=== PATIENT | male | born 1965 | race Caucasian/White ===

== ENCOUNTER 2018-04-18 14:11 | Emergency (ER) | payer MEDICARE, MEDICAID ==
[~2018-04-18] VITALS: Ht 1621 cm; Wt 61.3 kg
[~2018-04-18 14:11] MED LIST: CLOZ100T PO; DOCU240C26 PO; MULT-1085 PO; RISP4TAB2 PO; SERT100T PO; [UNRECOGNIZED DRUG - CODE] PO
[2018-04-18 15:12] LABS: BASOPHILS % (AUTO) 0.3 % (0-1); EOSINOPHILS % (AUTO) 0 % (0-6); HEMATOCRIT 41.1 % (42.0-52.0); LYMPHOCYTES % (AUTO) 18.4 % (21-51); MEAN CORPUSCULAR HEMOGLOBIN 32.7 PG (27.0-31.0); MEAN CORPUSCULAR HGB CONC 34.1 % (33.0-36.5); MEAN CORPUSCULAR VOLUME 96.1 FL (78-98); MEAN PLATELET VOLUME 7.1 FL (7.4-10.4); MONOCYTES # (AUTO) 0.8 X10'3 (0-0.9); MONOCYTES % (AUTO) 7.4 % (2-12); NEUTROPHILS # (AUTO) 7.9 X10'3 (1.8-7.7); NEUTROPHILS % (AUTO) 73.9 % (42-75); PLATELET COUNT 370 X10'3 (140-440); RED BLOOD COUNT 4.28 X10'6 (4.70-6.10); RED CELL DISTRIBUTION WIDTH 14.7 % (11.5-14.5); WHITE BLOOD COUNT 10.7 X10'3 (4.5-11.0)
[2018-04-18] MEDS ORDERED: SENN8.6T61 PO (15:30)
[2018-04-18] MEDS ORDERED: ACET-2119 PO (15:30)
[2018-04-18 15:34] LABS: ALANINE AMINOTRANSFERASE 63 U/L (12-78); ALBUMIN 4.3 G/DL (3.4-5.0); ALBUMIN/GLOBULIN RATIO 1.4 (1.1-1.5); ALKALINE PHOSPHATASE 95 IU/L (46-116); ANION GAP 7 (8-16); ASPARTATE AMINO TRANSFERASE 28 U/L (10-37); BILIRUBIN,TOTAL 0.3 MG/DL (0.1-1.0); BLOOD UREA NITROGEN 24 MG/DL (7-18); BUN/CREATININE RATIO 23.5 (5.4-32.0); CALCIUM 9.6 MG/DL (8.5-10.1); CHLORIDE 105 MMOL/L (99-107); CREATININE 1.02 MG/DL (0.60-1.10); GLUCOSE 98 MG/DL (70-104); POTASSIUM 4.1 MMOL/L (3.5-5.1); SODIUM 142 MMOL/L (135-145); TOTAL CARBON DIOXIDE 30.1 MMOL/L (24-32); TOTAL PROTEIN 7.4 G/DL (6.4-8.2); eGFR 77 ML/MIN
[2018-04-18 15:41] LABS: ETHANOL < 0.010 GM/DL (0.0-0.010)
[2018-04-18] MEDS ORDERED: OLANZapine 2.5MG tablet PO ONE (15:45)
[2018-04-18] MEDS ORDERED: [UNRECOGNIZED DRUG - OTHER] PO PRN (15:50)
[2018-04-18] MEDS ORDERED: acetaminophen 325mg tablet PO PRN (15:50)
[2018-04-18] MEDS ORDERED: PSYLLIUM HUSK PO PRN (15:50)
[2018-04-18] MEDS ORDERED: sennosides 8.6mg tablet PO PRN (15:50)
[2018-04-18] MEDS ORDERED: psyllium seed 3.4 gm packet PO PRN ×2 (15:55)
[2018-04-18] MEDS ORDERED: DOCUSATE CALCIUM 250 MG PO SCH (20:00)
[2018-04-18] MEDS: docusate sod 250mg capsule PO SCH (20:24)
[2018-04-18] MEDS ORDERED: CLOZAPINE 100 MG PO SCH (21:00)
[2018-04-18] MEDS ORDERED: risperiDONE 2mg tablet PO SCH (21:00)
[2018-04-18] MEDS ORDERED: CLOZAPINE 500 MG PO SCH (21:00)
[2018-04-18] MEDS ORDERED: sertraline 50mg tablet PO SCH (21:00)
[2018-04-18] MEDS ORDERED: SERTRALINE HCL PO SCH (21:00)
[2018-04-18] MEDS ORDERED: RISPERIDONE PO SCH (21:00)
[2018-04-18 22:03] LABS: URINE AMPHETAMINE SCREEN NEGATIVE (Neg); URINE BARBITUATE SCREEN NEGATIVE (Neg); URINE BENZODIAZEPINES SCREEN NEGATIVE (Neg); URINE CANNABINOID SCREEN NEGATIVE (Neg); URINE COCAINE SCREEN NEGATIVE (Neg); URINE METHADONE SCREEN NEGATIVE (Neg); URINE OPIATE SCREEN NEGATIVE (Neg); URINE PHENCYCLIDINE SCREEN NEGATIVE (Neg)
[2018-04-19 05:58] VITALS: BP 138/96
[2018-04-19] MEDS ORDERED: LORazepam 2 mg/ml vial IM ONE (07:15)
[2018-04-19] MEDS ORDERED: multivitamins, therapeutics tablet PO SCH (08:00)
[2018-04-19] MEDS: docusate sod 250mg capsule PO SCH (08:00)
[2018-04-19] MEDS ORDERED: non-formulary drug (Multivitamin (Multi Vitamin Daily) 1 EACH) PO SCH (08:00)
[2018-04-19] MEDS ORDERED: LORazepam 1 MG tablet PO ONE (13:05)
== END 2018-04-19 14:20 ==
LOC: ER 14:12
DX: F20.9 Schizophrenia, unspecified (principal); Z79.899 Other long term (current) drug therapy
CPT/HCPCS: 36415; 80053; 80305; 80320; 84443; 85025; 96372; 99285; J2060

== ENCOUNTER 2018-09-21 19:19 | Inpatient (IN) | payer MEDICARE, MEDICAID ==
[~2018-09-21] VITALS: Ht 167.6 cm; Wt 70.0 kg
[~2018-09-21 19:19] MED LIST changes: +ACET-2119 PO; +BENZ1TAB7 PO; +CLOZ200T PO; +CLOZ50TA PO; +HYDR50CA PO; +OLAN-1 PO; +SENN8.6T61 PO; +TRAZ-218 PO
[2018-09-21] MEDS ORDERED: LORazepam 2 mg/ml vial IM ONE ×2 (19:20→23:05)
[2018-09-21] MEDS ORDERED: diphenhydrAMINE 50 mg/ml inj IM ONE (19:20)
[2018-09-21] MEDS ORDERED: haloperidol lactate 5mg/ml inj IM ONE (19:20)
[2018-09-21] MEDS ORDERED: LIDOcaine 1% w/epiNEPHrine 1:200,000 30ml vial IJ ONE (19:35)
[2018-09-21] MEDS ORDERED: LIDOcaine 1.5% w/epinephrine 1:200,000 5ml ampul IJ ONE (19:35)
[2018-09-21] MEDS ORDERED: TETanus/Pertussis (Acell)/Diphther VAC/PF (Tdap-Adult) 0.5ml syringe IM ONE (19:35)
--- NOTE | 2018-09-21 19:43 | NUR ---
unable to get VS at this time. pt is unable to stay still
[2018-09-21 20:00] LABS: BASOPHILS # (AUTO) 0.1 X10'3 (0-0.2); BASOPHILS % (AUTO) 0.3 % (0-1); EOSINOPHILS # (AUTO) 0.3 X10'3 (0-0.9); EOSINOPHILS % (AUTO) 1.4 % (0-6); HEMATOCRIT 39.7 % (42.0-52.0); HEMOGLOBIN 13.4 g/dl (14.0-17.9); LYMPHOCYTES # (AUTO) 0.9 X10'3 (1.1-4.8); LYMPHOCYTES % (AUTO) 4.6 % (21-51); MEAN CORPUSCULAR HEMOGLOBIN 30.8 PG (27.0-31.0); MEAN CORPUSCULAR HGB CONC 33.7 % (33.0-36.5); MEAN CORPUSCULAR VOLUME 91.4 FL (78-98); MEAN PLATELET VOLUME 6.6 FL (7.4-10.4); MONOCYTES # (AUTO) 1.4 X10'3 (0-0.9); MONOCYTES % (AUTO) 6.9 % (2-12); NEUTROPHILS # (AUTO) 17.8 X10'3 (1.8-7.7); NEUTROPHILS % (AUTO) 86.8 % (42-75); PLATELET COUNT 396 X10'3 (140-440); RED BLOOD COUNT 4.34 X10'6 (4.70-6.10); RED CELL DISTRIBUTION WIDTH 13.6 % (11.5-14.5); WHITE BLOOD COUNT 20.5 X10'3 (4.5-11.0)
[2018-09-21 20:33] LABS: URINE AMPHETAMINE SCREEN POSITIVE (Neg); URINE BARBITUATE SCREEN NEGATIVE (Neg); URINE BENZODIAZEPINES SCREEN NEGATIVE (Neg); URINE CANNABINOID SCREEN NEGATIVE (Neg); URINE COCAINE SCREEN NEGATIVE (Neg); URINE METHADONE SCREEN NEGATIVE (Neg); URINE OPIATE SCREEN NEGATIVE (Neg); URINE PHENCYCLIDINE SCREEN NEGATIVE (Neg)
[2018-09-21 20:33] LABS: ALANINE AMINOTRANSFERASE 68 U/L (12-78); ALBUMIN 3.9 G/DL (3.4-5.0); ALBUMIN/GLOBULIN RATIO 1.3 (1.1-1.5); ALKALINE PHOSPHATASE 129 IU/L (46-116); ANION GAP 18 (8-16); ASPARTATE AMINO TRANSFERASE 101 U/L (10-37); BILIRUBIN,TOTAL 0.7 MG/DL (0.1-1.0); BLOOD UREA NITROGEN 34 MG/DL (7-18); BUN/CREATININE RATIO 20.4 (5.4-32.0); CALCIUM 9.1 MG/DL (8.5-10.1); CHLORIDE 102 MMOL/L (99-107); CREATININE 1.67 MG/DL (0.60-1.10); GLUCOSE 62 MG/DL (70-104); POTASSIUM 4.7 MMOL/L (3.5-5.1); SODIUM 141 MMOL/L (135-145); eGFR 44 ML/MIN
[2018-09-21 20:43] LABS: ACETAMINOPHEN < 2.0 UG/ML (10-30); ETHANOL < 0.010 GM/DL (0.0-0.010)
[2018-09-21 21:53] LABS: CLARITY,URINE CLOUDY (Clear); COLOR,URINE YELLOW (Yellow); GLUCOSE, URINE NEGATIVE (Neg); KETONES,URINE NEGATIVE (Neg); LEUKOCYTE ESTERASE ,URINE NEGATIVE (Neg); NITRITES, URINE NEGATIVE (Neg); OCCULT BLOOD,URINE MODERATE (Neg); PROTEIN,URINE 100 mg/dl (Neg); UROBILINOGEN,URINE 0.2 E.U/dL (0.2-1.0)
[2018-09-21 21:54] LABS: UA COLLECTION TYPE STRAIGHT CATH
[2018-09-21 22:03] LABS: WBC,URINE 30-50 /HPF (0-4)
[2018-09-21 22:05] LABS: BACTERIA,URINE FEW /HPF (Neg); MUCUS STRANDS MODERATE /LPF (Neg); RBC,URINE NONE SEEN /HPF (0-2); SQUAMOUS EPITHELIAL CELL,UR NONE SEEN /LPF (FEW); TRANSITIONAL EPI CELLS,URINE FEW /HPF
[2018-09-21 22:06] LABS: AMORPHOUS URATES 1+; SPERM MANY /HPF (NEGATIVE); WBC CLUMPS,URINE FEW /HPF (NEGATIVE)
[2018-09-21 23:34] LABS: TOTAL CELLS COUNTED 100
[2018-09-21 23:35] LABS: PLATELET ESTIMATE NORMAL
--- NOTE | 2018-09-22 00:14 | NUR ---
PT TAKEN TO OVERFLOW
--- NOTE | 2018-09-22 07:30 | NUR ---
PACKET FAXED TO [facility]
[2018-09-22] MEDS ORDERED: CefTRIAXone 2gm/D5W 50ml 50 ML IV ONE (08:15)
[2018-09-22] MEDS ORDERED: normal saline 1000ML IV soln IV ONE (08:15)
[2018-09-22 08:54] LABS: BASOPHILS % (AUTO) 0.3 % (0-1); EOSINOPHILS # (AUTO) 0.1 X10'3 (0-0.9); EOSINOPHILS % (AUTO) 0.7 % (0-6); HEMOGLOBIN 14.2 g/dl (14.0-17.9); LYMPHOCYTES # (AUTO) 1.6 X10'3 (1.1-4.8); MEAN CORPUSCULAR HEMOGLOBIN 30.8 PG (27.0-31.0); MEAN CORPUSCULAR VOLUME 93.3 FL (78-98); MEAN PLATELET VOLUME 6.9 FL (7.4-10.4); MONOCYTES # (AUTO) 0.9 X10'3 (0-0.9); MONOCYTES % (AUTO) 9.4 % (2-12); NEUTROPHILS # (AUTO) 6.8 X10'3 (1.8-7.7); NEUTROPHILS % (AUTO) 72.6 % (42-75); PLATELET COUNT 374 X10'3 (140-440); RED BLOOD COUNT 4.62 X10'6 (4.70-6.10); RED CELL DISTRIBUTION WIDTH 13.9 % (11.5-14.5); WHITE BLOOD COUNT 9.4 X10'3 (4.5-11.0)
[2018-09-22 09:10] LABS: ALANINE AMINOTRANSFERASE 85 U/L (12-78); ALBUMIN/GLOBULIN RATIO 1.2 (1.1-1.5); ALKALINE PHOSPHATASE 142 IU/L (46-116); ANION GAP 18 (8-16); ASPARTATE AMINO TRANSFERASE 156 U/L (10-37); BILIRUBIN,TOTAL 0.9 MG/DL (0.1-1.0); BLOOD UREA NITROGEN 38 MG/DL (7-18); BUN/CREATININE RATIO 35.2 (5.4-32.0); CALCIUM 8.9 MG/DL (8.5-10.1); CHLORIDE 103 MMOL/L (99-107); CREATININE 1.08 MG/DL (0.60-1.10); GLUCOSE 57 MG/DL (70-104); POTASSIUM 3.9 MMOL/L (3.5-5.1); SODIUM 142 MMOL/L (135-145); TOTAL CARBON DIOXIDE 21.3 MMOL/L (24-32); TOTAL PROTEIN 7.4 G/DL (6.4-8.2); eGFR 72 ML/MIN
[2018-09-22] MEDS ORDERED: acetaminophen 325mg tablet PO PRN ×2 (11:30)
[2018-09-22] MEDS ORDERED: mag hydrox/Alum hydrox/simeth 30ml oral suspension PO PRN (11:30)
[2018-09-22] MEDS ORDERED: ondansetron/PF 4mg/2ml inj IV PRN (11:30)
[2018-09-22] MEDS ORDERED: magnesium hydroxide 30ml (MOM) UD suspension PO PRN (11:30)
[2018-09-22] MEDS ORDERED: morphine 2 MG/ML inj. syringe IV PRN (11:30)
[2018-09-22] MEDS ORDERED: potassium Cl 20 mEq SR tablet PO PRN ×2 (11:30)
[2018-09-22] MEDS ORDERED: potassium Cl 40MEQ/NS 500ml 500 ML IV PRN ×2 (11:30)
[2018-09-22] MEDS ORDERED: dextrose 50%-water 50ml dispensing syringe IV PRN (11:30)
[2018-09-22] MEDS ORDERED: HYDROcodone/acetaminophen 5mg/325mg tablet PO PRN (11:30)
[2018-09-22] MEDS: normal saline 1000ml 1,000 ML IV SCH ×3 (12:02→23:39)
--- NOTE | 2018-09-22 12:30 | NUR ---
Patient in room ORTHO 4009. I have received report from Savanna HAMILTON RN and had the opportunity to ask questions and assume patient care.
--- NOTE | 2018-09-22 12:58 | NUR ---
PT UNABLE TO ANSWER QUESTIONS ABOUT MED ADMINISTRATION.
[2018-09-22 13:40] VITALS: BP 113/43
[2018-09-22 18:00] VITALS: BP 97/42
--- NOTE | 2018-09-22 18:10 | NUR ---
Patient in room ORTHO 4009. I have received report from JACKIE Muro and had the opportunity to ask questions and assume patient care.
--- NOTE | 2018-09-22 18:24 | NUR ---
Problems reprioritized. Patient report given, questions answered & plan of care reviewed with Steff MEJIA.
[2018-09-22 20:00] VITALS: BP 100/50
[2018-09-22] MEDS: heparin, porcine 5000 units/ml vial SQ SCH (20:00)
[2018-09-22] MEDS ORDERED: temazepam 15mg capsule PO PRN (21:00)
[2018-09-22 22:00] VITALS: BP 93/43
[2018-09-23 06:01] VITALS: BP 117/50
--- NOTE | 2018-09-23 06:38 | NUR ---
Problems reprioritized. Patient report given, questions answered & plan of care reviewed with JACKIE Bustillos.
[2018-09-23 08:00] VITALS: BP_SYST 107; BP_SYST 111; BP_SYST 119; BP_DIAS 55; BP_DIAS 60; BP_DIAS 61
[2018-09-23] MEDS: K and/or MAG REPLACEMENT MC SCH (08:00)
[2018-09-23] MEDS: heparin, porcine 5000 units/ml vial SQ SCH ×2 (08:00→20:00)
[2018-09-23] MEDS: CefTRIAXone 2gm/D5W 50ml 50 ML IV SCH (08:09)
[2018-09-23 10:00] VITALS: BP 107/60
[2018-09-23] MEDS: normal saline 1000ml 1,000 ML IV SCH ×2 (11:26→20:38)
[2018-09-23 18:00] VITALS: BP 109/57
--- NOTE | 2018-09-23 18:26 | NUR ---
Problems reprioritized. Patient report given, questions answered & plan of care reviewed with Fabian MEJIA.
[2018-09-23 20:00] VITALS: BP_SYST 109; BP_SYST 113; BP_SYST 116; BP_DIAS 57; BP_DIAS 65
[2018-09-23 22:00] VITALS: BP 109/65
[2018-09-24] MEDS: normal saline 1000ml 1,000 ML IV SCH ×2 (03:00→05:44)
[2018-09-24 06:00] VITALS: BP 133/70
[2018-09-24] MEDS: heparin, porcine 5000 units/ml vial SQ SCH ×2 (08:00→20:00)
[2018-09-24] MEDS: K and/or MAG REPLACEMENT MC SCH (08:00)
[2018-09-24] MEDS: CefTRIAXone 2gm/D5W 50ml 50 ML IV SCH (08:24)
[2018-09-24 09:32] LABS: BASOPHILS % (AUTO) 0.4 % (0-1); EOSINOPHILS % (AUTO) 0.7 % (0-6); HEMATOCRIT 35.1 % (42.0-52.0); HEMOGLOBIN 11.7 g/dl (14.0-17.9); LYMPHOCYTES # (AUTO) 1.1 X10'3 (1.1-4.8); MEAN CORPUSCULAR HEMOGLOBIN 30.8 PG (27.0-31.0); MEAN CORPUSCULAR HGB CONC 33.2 % (33.0-36.5); MEAN CORPUSCULAR VOLUME 92.8 FL (78-98); MEAN PLATELET VOLUME 7.1 FL (7.4-10.4); MONOCYTES # (AUTO) 0.4 X10'3 (0-0.9); NEUTROPHILS # (AUTO) 3.5 X10'3 (1.8-7.7); NEUTROPHILS % (AUTO) 68.9 % (42-75); PLATELET COUNT 280 X10'3 (140-440); RED BLOOD COUNT 3.78 X10'6 (4.70-6.10); RED CELL DISTRIBUTION WIDTH 13.8 % (11.5-14.5)
[2018-09-24 09:48] LABS: ALBUMIN 2.6 G/DL (3.4-5.0); ANION GAP 9 (8-16); BLOOD UREA NITROGEN 14 MG/DL (7-18); BUN/CREATININE RATIO 17.7 (5.4-32.0); CALCIUM 8.2 MG/DL (8.5-10.1); CHLORIDE 106 MMOL/L (99-107); CREATININE 0.79 MG/DL (0.60-1.10); GLUCOSE 109 MG/DL (70-104); POTASSIUM 3.8 MMOL/L (3.5-5.1); SODIUM 141 MMOL/L (135-145); TOTAL CARBON DIOXIDE 26.3 MMOL/L (24-32); eGFR > 90 ML/MIN
[2018-09-24 10:00] VITALS: BP 131/71
--- NOTE | 2018-09-24 12:21 | NUR ---
patient refused multiple times to do orthostatic vital signs.
[2018-09-24 12:28] LABS: LIPASE 288 U/L (73-393)
--- NOTE | 2018-09-24 15:43 | NUR ---
SS met w/pt in his hospital room, pt was not willing to participate in his psychosocial assessment at this time. Pt alert & oriented to Place only, indicated that he does not recall how he came to be @ the hospital. When informed that he was brought in by [facility] via a 5150 Hold pt refused any further conversation w/SS. 5150 Hold written by [facility] on 09/21/18 @ 7:56 PM, this hold has been nulled as pt was admitted for medical reasons. SS contacted [facility] to verify process for a re-eval if pt should continue to need one; per discussion w/[facility] RN, once pt is medically stabled for d/c, a new referral can be faxed to [facility] (Ph: [phone]; Fax: [phone]). Attending RN informed of this. SS will rt tomorrow to attempt to complete a psychosocial assessment and determine dispo re pt's MH needs.
--- NOTE | 2018-09-24 18:06 | NUR ---
RECEIVED REPORT FROM TRAN MEJIA AND ASSUMED PATIENT CARE
--- NOTE | 2018-09-24 18:16 | NUR ---
Problems reprioritized. Patient report given, questions answered & plan of care reviewed with Norma MEJIA.
[2018-09-24 18:18] VITALS: BP 131/79
[2018-09-24 20:00] VITALS: BP_SYST 131; BP_SYST 137; BP_DIAS 77; BP_DIAS 81; BP_DIAS 82
[2018-09-24 22:00] VITALS: BP 131/81
--- NOTE | 2018-09-25 06:18 | NUR ---
REPORT GIVEN TO EBONY MEJIA
--- NOTE | 2018-09-25 06:23 | NUR ---
Patient in room ORTHO 4009. I have received report from JACKIE SINGH and had the opportunity to ask questions and assume patient care.
[2018-09-25 06:47] LABS: BASOPHILS % (AUTO) 0.5 % (0-1); EOSINOPHILS % (AUTO) 0.5 % (0-6); HEMATOCRIT 37.6 % (42.0-52.0); HEMOGLOBIN 12.6 g/dl (14.0-17.9); LYMPHOCYTES # (AUTO) 1.5 X10'3 (1.1-4.8); LYMPHOCYTES % (AUTO) 27.2 % (21-51); MEAN CORPUSCULAR HEMOGLOBIN 30.7 PG (27.0-31.0); MEAN CORPUSCULAR HGB CONC 33.4 % (33.0-36.5); MEAN CORPUSCULAR VOLUME 91.9 FL (78-98); MEAN PLATELET VOLUME 7.4 FL (7.4-10.4); MONOCYTES # (AUTO) 0.5 X10'3 (0-0.9); NEUTROPHILS # (AUTO) 3.3 X10'3 (1.8-7.7); NEUTROPHILS % (AUTO) 61.8 % (42-75); PLATELET COUNT 278 X10'3 (140-440); RED BLOOD COUNT 4.09 X10'6 (4.70-6.10); RED CELL DISTRIBUTION WIDTH 14.2 % (11.5-14.5); WHITE BLOOD COUNT 5.4 X10'3 (4.5-11.0)
[2018-09-25 07:02] VITALS: BP 134/84
[2018-09-25 07:22] LABS: ALBUMIN 2.9 G/DL (3.4-5.0); ANION GAP 4 (8-16); BLOOD UREA NITROGEN 13 MG/DL (7-18); CALCIUM 8.7 MG/DL (8.5-10.1); CHLORIDE 103 MMOL/L (99-107); CREATININE 0.81 MG/DL (0.60-1.10); GLUCOSE 93 MG/DL (70-104); POTASSIUM 4.2 MMOL/L (3.5-5.1); SODIUM 138 MMOL/L (135-145); TOTAL CARBON DIOXIDE 31.2 MMOL/L (24-32); eGFR > 90 ML/MIN
[2018-09-25] MEDS: CefTRIAXone 2gm/D5W 50ml 50 ML IV SCH (07:22)
[2018-09-25] MEDS: heparin, porcine 5000 units/ml vial SQ SCH (07:32)
[2018-09-25] MEDS: K and/or MAG REPLACEMENT MC SCH (07:32)
[2018-09-25] MEDS: normal saline 1000ml 1,000 ML IV SCH ×2 (09:30→13:11)
--- NOTE | 2018-09-25 10:47 | NUR ---
Patient refuses to have orthostatic vitals completed. Only allowed for vitals taken in supine position.
[2018-09-25 11:00] VITALS: BP 129/74
--- NOTE | 2018-09-25 14:22 | NUR ---
SS received p/c from [facility], Sharona Negro. Per consultation pt is being followed by psychiatrist- Dr. Karli Chavez- [phone] via [facility] services and was receiving monthly injection of Aripiprazole (Albilify) 400mg for treatment and management of symptoms/bxs associated with schizophrenia. Last time pt received his shot was September 03, he missed an psychiatric appointment on 08/23/18 and therefore has no current orders for psych meds. Sharona suggest a doctor to doctor consult to see if a 5150 can be avoided via the hospital providing the injection for the month of September as pt has done well and been compliant with current psych meds regiment. SS will page hospitalist.
[2018-09-25] MEDS ORDERED: CEFD300C3 PO (16:52)
--- NOTE | 2018-09-25 18:08 | NUR ---
discussed dc instructions with patient. patient nodded he understood discharge plan but did not/unable to sign discharge. he does not reply or answer when asked to sign. patient flat affect and stares blankly.
--- NOTE | 2018-09-25 18:13 | NUR ---
RECEIVED REPORT FROM EBONY MEJIA AND ASSUMED PATIENT CARE. PATIENT DISCHARGED AND AWAITING ESCORT TO EMERGENCY ROOM.
[2018-09-25 18:21] VITALS: BP 127/69
--- NOTE | 2018-09-25 21:19 | NUR ---
pt expressed desire to seek more help and "get to the [facility]" - which is a program from [facility]. encouraged pt that he needs to seek help from [facility], which is not open at the moment, but can seek help through the emergency room. Patient has been medically cleared for discharge by MD. pt belongings still locked in safe, provided pt with receipt and walked with him out lobby doors. pt walked to ER Lobby and is waiting to be registered. walked down with JACKIE Green.
--- NOTE | 2018-09-26 09:44 | NUR ---
Pt to be tansfer to [facility] care, SS referral closed.
== END 2018-09-25 21:30 | DRG 872 ==
LOC: ER 19:19 → OBSVTOIN 09-22 11:30 → ED HOLD 09-22 11:30 → ORTHO 4S 09-22 13:50
PROVIDERS: ADMIT Internal Medicine; ATTEND Family Medicine
PROC: 0HQ1XZZ Repair Face Skin, External Approach (ICD-10-PCS; principal; 2018-09-22)
DX: A41.9 Sepsis, unspecified organism (principal); N39.0 Urinary tract infection, site not specified; N17.9 Acute kidney failure, unspecified; F15.10 Other stimulant abuse, uncomplicated; F20.9 Schizophrenia, unspecified; F29 Unspecified psychosis not due to a substance or known physiological condition; S01.81XA Laceration without foreign body of other part of head, initial encounter; Y08.89XA Assault by other specified means, initial encounter; Y93.89 Activity, other specified; Y92.89 Other specified places as the place of occurrence of the external cause; Y99.8 Other external cause status
CPT/HCPCS: 12011; 36415; 71045; 76700; 80048; 80053; 80178; 80305; 80320; 80329; 81001; 83605; 83690; 84145; 84443; 85025; 87040; 87070; 87088; 90715; 96365; 96366; 96372; 97116; 97162; 99285; G0378; J0696; J1200; J1630; J1644; J2060; J7030

== ENCOUNTER 2018-09-25 21:30 | Emergency (ER) | payer MEDICARE, MEDICAID ==
[~2018-09-25] VITALS: Ht 175.3 cm; Wt 59.0 kg
[~2018-09-25 21:30] MED LIST changes: +CEFD300C3 PO
[2018-09-25 22:32] LABS: BASOPHILS % (AUTO) 0.4 % (0-1); EOSINOPHILS % (AUTO) 0.7 % (0-6); HEMATOCRIT 40.1 % (42.0-52.0); HEMOGLOBIN 13.4 g/dl (14.0-17.9); LYMPHOCYTES # (AUTO) 1.7 X10'3 (1.1-4.8); MEAN CORPUSCULAR HEMOGLOBIN 30.7 PG (27.0-31.0); MEAN CORPUSCULAR HGB CONC 33.5 % (33.0-36.5); MEAN CORPUSCULAR VOLUME 91.8 FL (78-98); MEAN PLATELET VOLUME 7.3 FL (7.4-10.4); MONOCYTES # (AUTO) 0.5 X10'3 (0-0.9); MONOCYTES % (AUTO) 8.2 % (2-12); NEUTROPHILS # (AUTO) 3.5 X10'3 (1.8-7.7); NEUTROPHILS % (AUTO) 61.7 % (42-75); PLATELET COUNT 345 X10'3 (140-440); RED BLOOD COUNT 4.37 X10'6 (4.70-6.10); RED CELL DISTRIBUTION WIDTH 13.6 % (11.5-14.5); WHITE BLOOD COUNT 5.7 X10'3 (4.5-11.0)
[2018-09-25 22:44] LABS: ALANINE AMINOTRANSFERASE 67 U/L (12-78); ALBUMIN 3.1 G/DL (3.4-5.0); ALBUMIN/GLOBULIN RATIO 0.9 (1.1-1.5); ALKALINE PHOSPHATASE 125 IU/L (46-116); ANION GAP 8 (8-16); ASPARTATE AMINO TRANSFERASE 36 U/L (10-37); BILIRUBIN,TOTAL 0.2 MG/DL (0.1-1.0); BLOOD UREA NITROGEN 23 MG/DL (7-18); BUN/CREATININE RATIO 30.3 (5.4-32.0); CALCIUM 8.9 MG/DL (8.5-10.1); CHLORIDE 103 MMOL/L (99-107); CREATININE 0.76 MG/DL (0.60-1.10); ETHANOL < 0.010 GM/DL (0.0-0.010); GLUCOSE 112 MG/DL (70-104); POTASSIUM 4.1 MMOL/L (3.5-5.1); SODIUM 139 MMOL/L (135-145); TOTAL CARBON DIOXIDE 27.6 MMOL/L (24-32); TOTAL PROTEIN 6.4 G/DL (6.4-8.2); eGFR > 90 ML/MIN
[2018-09-25 23:36] LABS: URINE AMPHETAMINE SCREEN NEGATIVE (Neg); URINE BARBITUATE SCREEN NEGATIVE (Neg); URINE BENZODIAZEPINES SCREEN NEGATIVE (Neg); URINE CANNABINOID SCREEN NEGATIVE (Neg); URINE COCAINE SCREEN NEGATIVE (Neg); URINE METHADONE SCREEN NEGATIVE (Neg); URINE OPIATE SCREEN NEGATIVE (Neg); URINE PHENCYCLIDINE SCREEN NEGATIVE (Neg)
[2018-09-28] MEDS ORDERED: hydrOXYzine 25 MG tablet PO PRN (08:45)
[2018-09-28] MEDS ORDERED: OLANZapine 5mg rapidly disint. tablet PO PRN (08:45)
[2018-09-28] MEDS ORDERED: sennosides 8.6mg tablet PO PRN (08:45)
[2018-09-28] MEDS ORDERED: cefdinir 300mg capsule PO SCH (09:15)
[2018-09-28] MEDS ORDERED: clozapine 25mg tablet PO SCH (09:30)
[2018-09-28] MEDS ORDERED: psyllium seed 3.4 gm packet PO PRN (10:00)
[2018-09-28 14:21] VITALS: BP 116/58
[2018-09-28] MEDS ORDERED: benztropine 1mg tablet PO SCH (20:00)
[2018-09-28] MEDS ORDERED: docusate sod 100mg capsule PO SCH (20:00)
[2018-09-28] MEDS ORDERED: clozapine 100mg tablet PO SCH (21:00)
[2018-09-28] MEDS ORDERED: risperiDONE 2mg tablet PO SCH (21:00)
[2018-09-28] MEDS ORDERED: traZODone 50mg tablet PO SCH (21:00)
[2018-09-28] MEDS ORDERED: sertraline 50mg tablet PO SCH (21:00)
[2018-09-29] MEDS ORDERED: multivitamins, therapeutics tablet PO SCH (08:00)
== END 2018-09-28 14:22 ==
LOC: ER 21:31
DX: F28 Other psychotic disorder not due to a substance or known physiological condition (principal); F15.10 Other stimulant abuse, uncomplicated; F20.9 Schizophrenia, unspecified; Z79.899 Other long term (current) drug therapy
CPT/HCPCS: 36415; 80053; 80305; 80320; 85025; 99285

== ENCOUNTER 2018-10-26 16:16 | Emergency (ER) | payer MEDICARE, MEDICAID ==
[~2018-10-26] VITALS: Ht 175.3 cm; Wt 60.0 kg
[~2018-10-26 16:16] MED LIST changes: -ACET-2119 PO; -CEFD300C3 PO; -CLOZ100T PO
[2018-10-26 17:22] LABS: CLARITY,URINE CLEAR (Clear); COLOR,URINE YELLOW (Yellow); GLUCOSE, URINE NEGATIVE (Neg); KETONES,URINE NEGATIVE (Neg); LEUKOCYTE ESTERASE ,URINE NEGATIVE (Neg); NITRITES, URINE NEGATIVE (Neg); OCCULT BLOOD,URINE SMALL (Neg); PH,URINE 7.5 (4.8-8.0); PROTEIN,URINE NEGATIVE (Neg); UROBILINOGEN,URINE 0.2 E.U/dL (0.2-1.0)
[2018-10-26 17:27] LABS: UA COLLECTION TYPE CLN CATCH MIDSTREAM
[2018-10-26 17:32] LABS: URINE AMPHETAMINE SCREEN NEGATIVE (Neg); URINE BARBITUATE SCREEN NEGATIVE (Neg); URINE BENZODIAZEPINES SCREEN NEGATIVE (Neg); URINE CANNABINOID SCREEN NEGATIVE (Neg); URINE COCAINE SCREEN NEGATIVE (Neg); URINE METHADONE SCREEN NEGATIVE (Neg); URINE OPIATE SCREEN NEGATIVE (Neg); URINE PHENCYCLIDINE SCREEN NEGATIVE (Neg)
[2018-10-26 17:36] LABS: SQUAMOUS EPITHELIAL CELL,UR NONE SEEN /LPF (FEW)
[2018-10-26 17:37] LABS: WBC,URINE 0-4 /HPF (0-4)
[2018-10-26 17:38] LABS: BACTERIA,URINE FEW /HPF (Neg)
[2018-10-26 18:02] LABS: BASOPHILS % (AUTO) 0.2 % (0-1); EOSINOPHILS # (AUTO) 0.1 X10'3 (0-0.9); HEMATOCRIT 40.2 % (42.0-52.0); HEMOGLOBIN 13.6 g/dl (14.0-17.9); LYMPHOCYTES # (AUTO) 1.3 X10'3 (1.1-4.8); LYMPHOCYTES % (AUTO) 14.2 % (21-51); MEAN CORPUSCULAR HEMOGLOBIN 31.7 PG (27.0-31.0); MEAN CORPUSCULAR HGB CONC 33.9 % (33.0-36.5); MEAN CORPUSCULAR VOLUME 93.3 FL (78-98); MEAN PLATELET VOLUME 7.9 FL (7.4-10.4); MONOCYTES % (AUTO) 10.3 % (2-12); NEUTROPHILS % (AUTO) 74.3 % (42-75); PLATELET COUNT 239 X10'3 (140-440); RED BLOOD COUNT 4.31 X10'6 (4.70-6.10); RED CELL DISTRIBUTION WIDTH 15.7 % (11.5-14.5); WHITE BLOOD COUNT 9.4 X10'3 (4.5-11.0)
[2018-10-26 18:15] LABS: ALANINE AMINOTRANSFERASE 34 U/L (12-78); ALBUMIN 4.2 G/DL (3.4-5.0); ALBUMIN/GLOBULIN RATIO 1.2 (1.1-1.5); ALKALINE PHOSPHATASE 125 IU/L (46-116); ANION GAP 10 (8-16); ASPARTATE AMINO TRANSFERASE 22 U/L (10-37); BILIRUBIN,TOTAL 0.3 MG/DL (0.1-1.0); BLOOD UREA NITROGEN 15 MG/DL (7-18); BUN/CREATININE RATIO 16.1 (5.4-32.0); CALCIUM 9.3 MG/DL (8.5-10.1); CHLORIDE 103 MMOL/L (99-107); CREATININE 0.93 MG/DL (0.60-1.10); GLUCOSE 105 MG/DL (70-104); SODIUM 142 MMOL/L (135-145); TOTAL CARBON DIOXIDE 28.8 MMOL/L (24-32); TOTAL PROTEIN 7.6 G/DL (6.4-8.2); eGFR 86 ML/MIN
--- NOTE | 2018-10-26 19:11 | NUR ---
TELE PSYCH INITIATED.
[2018-10-26] MEDS ORDERED: NO HOME MEDS (19:22)
--- NOTE | 2018-10-26 19:47 | NUR ---
Pt asks this software writer if "he can have a snack since he has not had anything to eat all day. Sir." PT provided with sandwhich, applesauce and juice. Pt is able to feed self.
[2018-10-26 20:05] LABS: ETHANOL < 0.010 GM/DL (0.0-0.010)
--- NOTE | 2018-10-26 21:00 | NUR ---
PT SPEAKING WITH TELE PSYCH .
--- NOTE | 2018-10-26 22:06 | NUR ---
Packet sent to [facility].
--- NOTE | 2018-10-27 04:30 | NUR ---
HITTING SELF IN HEAD AND HITTING SIDE RAIL TO BED. MD APPROACHED FOR MEDICATION FOR AGGITATION.
[2018-10-27] MEDS ORDERED: haloperidol lactate 5mg/ml inj IM PRN (04:40)
[2018-10-27] MEDS ORDERED: LORazepam 2 mg/ml vial IM PRN (04:40)
--- NOTE | 2018-10-27 04:56 | NUR ---
MEDICATED FOR AGGITATION WITH [facility].
--- NOTE | 2018-10-27 05:45 | NUR ---
NO FURTHER STRIKING OF SELF OR BED RAIL NOTED AFTER [facility].
--- NOTE | 2018-10-27 07:31 | NUR ---
Pt sleeping in bed. Beathing w/o distress.
--- NOTE | 2018-10-27 09:30 | NUR ---
Assessed client at bedside. Cooperative and denies SI/HI. Would like to go back to [facility]. Spoke with [facility] staff and they report pt was discharged from [facility] and admmited there on 10-24-18 but they have not yet recieved his medications.
--- NOTE | 2018-10-27 11:30 | NUR ---
Sleeping in bed W/O distress.
--- NOTE | 2018-10-27 13:31 | NUR ---
Pt awake eating lunch. Short responses to q's. Pleasant mood. Appears to respond to internal stimuli at times.
[2018-10-27] MEDS ORDERED: FISH12002 PO (15:58)
[2018-10-27] MEDS ORDERED: MULT-933 PO (15:58)
[2018-10-27] MEDS ORDERED: OLAN15TA3 PO (15:58)
[2018-10-27] MEDS ORDERED: CHOL10002 PO (15:58)
--- NOTE | 2018-10-27 16:10 | NUR ---
Pt resting in bed W/O distress. Called [facility] and obtained list of meds he was discharged on from [place] [facility] in-pt facility; Zyprexa 15 mg po qhs; Vit D3 1000u po qd; Fish Oil/omega 3 1200mg po qd; Multivitamin 1 tab po qd. Completed Home meds/ historical meds Rec. and attempting to consult with Dr Miller.
--- NOTE | 2018-10-27 17:15 | NUR ---
Consulted with Dr Miller and obtained med orders and faxed to pharmacy. Pt sleeping in bed W/O distress.
--- NOTE | 2018-10-27 18:31 | NUR ---
[facility] Eating dinner currently.
--- NOTE | 2018-10-27 19:18 | NUR ---
Resting in bed, eyes closed. Appearing to sleep at this time. No new concerns noted. Will continue to monitor for changes.
[2018-10-27] MEDS: OLANZapine 5mg rapidly disint. tablet PO SCH (20:29)
--- NOTE | 2018-10-27 20:30 | NUR ---
Medications administered without concerns.
--- NOTE | 2018-10-27 21:08 | NUR ---
Patient resting in bed with eyes closed, resp are even and unlabored, appearing to sleep. Will continue to monitor.
--- NOTE | 2018-10-27 22:01 | NUR ---
Resting in bed, continues to appear to sleep comfortably. Will monitor.
--- NOTE | 2018-10-27 22:57 | NUR ---
Laying in bed, eyes closed, resp are even and unlabored, appears to sleep. Will continue to monitor.
--- NOTE | 2018-10-27 23:57 | NUR ---
Laying in bed, eyes closed, resp are even and unlabored, appears to sleep. Will continue to monitor.
--- NOTE | 2018-10-28 01:29 | NUR ---
Resting in bed, appearing to sleep with even and unlabored respirations. No new concerns or issues noted, will continue to monitor.
--- NOTE | 2018-10-28 02:45 | NUR ---
Resting in bed, appearing to sleep, will monitor.
--- NOTE | 2018-10-28 04:23 | NUR ---
Resting in bed, appearing to sleep, will monitor.
--- NOTE | 2018-10-28 05:03 | NUR ---
Resting in bed, vitals taken, up to BRP, no new concerns.
--- NOTE | 2018-10-28 07:16 | NUR ---
PT SLEEPING, NO S/S DISCOMFORT.
[2018-10-28] MEDS: vitamin D (cholecalciferol) 1,000 unit tablet PO SCH (08:57)
[2018-10-28] MEDS: multivitamins, therapeutics tablet PO SCH (08:57)
--- NOTE | 2018-10-28 09:00 | NUR ---
ADMIN MORNING MEDS TO PT. PT HAS POOR IMPULSE CONTROL AND GRABS THE CUP OF MEDICATION PILLS OUT OF THE NURSES HAND ACTUALLY GRABBING HER HAND AND THEN GRABS GLASS OF WATER AND DRINKS IT AND THEN CRUSHES IT AND THROWS IT BACK AT THE NURSE.
[2018-10-28] MEDS: [UNRECOGNIZED DRUG - REMARK] PO NR (10:44)
--- NOTE | 2018-10-28 11:00 | NUR ---
PT SEEMS AGITATED, TALK TO PT TO CALM HIM DOWN. PT AGREES IT WOULD HELP TO GET A SANDWICH TO EAT. GIVE PT A SANDWICH AND PT IS NOW LAYING DOWN ON BED AND IS CALM.
--- NOTE | 2018-10-28 13:00 | NUR ---
PT BRUSHING HIS TEETH AFTER EATING. AMBULATING WITH OUT DIFFICULTY.
--- NOTE | 2018-10-28 16:49 | NUR ---
PT IS LAYING IN BED WITH HIS EYES OPEN AND IS STARING WITHOUT BLINKING.
--- NOTE | 2018-10-28 17:22 | NUR ---
PT IS GRUNTING WHILE BLOOD PRESSURE WAS IN PROGRESS, HAD TO REDO THE BLOOD PRESSURE FOR AN ACCURATE BP. PT RESPONDS TO MALE NURSES DIRECTIONS FOR BP AND PICKING UP THE WATER PITCHER THAT PT HAD PUT UNDER THE TRAY TABLE. PT IS NOW LAYING IN BED ON HIS SIDE, JUST STARING.
--- NOTE | 2018-10-28 17:25 | NUR ---
PT RESPONDS BETTER IF THE RN IS A MALE AND DOESNT CONFRONT HIM DIRECTLY BUT IS OFF THE THE SIDE SO THAT PT HAS TO READJUST HIS VISUAL.
--- NOTE | 2018-10-28 19:00 | NUR ---
Client is disorganized. Talks to unseen others. Fell asleep shortly after COS. Resting, eye's closed. Resp even and unlabored.
--- NOTE | 2018-10-28 21:00 | NUR ---
Resting, eye's closed. Resp even and unlabored.
[2018-10-28] MEDS: OLANZapine 5mg rapidly disint. tablet PO SCH (22:00)
--- NOTE | 2018-10-28 23:09 | NUR ---
Client took 15 mg Zyprexa-Zydis at 22:30. Behavior is disorganized. Returned to bed.
--- NOTE | 2018-10-29 01:15 | NUR ---
Resting eye's closed. No distress. Resp even.
--- NOTE | 2018-10-29 03:00 | NUR ---
Resting in bed, eye's closed. No obvious distress. Respirations even and unlabored.
--- NOTE | 2018-10-29 05:10 | NUR ---
Client resting in bed. Irritable when awake. Vital signs obtained.
--- NOTE | 2018-10-29 08:00 | NUR ---
Patient sitting at bedside eating breakfast
[2018-10-29] MEDS: multivitamins, therapeutics tablet PO SCH (08:25)
[2018-10-29] MEDS: vitamin D (cholecalciferol) 1,000 unit tablet PO SCH (08:26)
--- NOTE | 2018-10-29 09:00 | NUR ---
Patient stood up in bed, jumped off and went into the bathroom. Patient asked to refrain from jumping from his bed in the future. Accepted this information without comment.
[2018-10-29] MEDS: [UNRECOGNIZED DRUG - REMARK] PO NR (10:00)
--- NOTE | 2018-10-29 16:15 | NUR ---
Patient has slept throughout the day, except when awakened for meals. Ate 100% of all meals. Maintained a low profile, refusing to speak with staff when approached. Noted to display symptoms of tardive dyskinesia. Telepsyche doctor recommends Cogentin [address] Ortiz consulted. Order given for Cogentin.
--- NOTE | 2018-10-29 16:33 | NUR ---
Kenyetta from [facility] at bedside to speak with patient. Patient conversing easily with Kenyetta at this time.
--- NOTE | 2018-10-29 18:30 | NUR ---
Report received from JACKIE Kelsey.Pt. resting comfortably.
--- NOTE | 2018-10-29 19:00 | NUR ---
Pt. finished his dinner, used the bathroom and resting in bed.
[2018-10-29] MEDS: benztropine 1mg tablet PO SCH (19:48)
[2018-10-29] MEDS: OLANZapine 5mg rapidly disint. tablet PO SCH (19:48)
--- NOTE | 2018-10-29 20:00 | NUR ---
Pt. took his med.,resting in bed.
--- NOTE | 2018-10-29 22:11 | NUR ---
Pt. is sleeping comfortably.
--- NOTE | 2018-10-29 23:00 | NUR ---
pt. is sleeping on his right side.
--- NOTE | 2018-10-29 23:19 | NUR ---
Pt. up to the bathroom.
--- NOTE | 2018-10-30 01:06 | NUR ---
Pt. sleeping on his right side comfortable.
--- NOTE | 2018-10-30 03:38 | NUR ---
pt. up to the bathroom
--- NOTE | 2018-10-30 05:35 | NUR ---
Pt. was asleep.Awaken for vitals.
--- NOTE | 2018-10-30 06:31 | NUR ---
Report given to JACKIE Oseguera
--- NOTE | 2018-10-30 06:55 | NUR ---
Patient laying in bed awake. No distress observed. Continue to monitor.
--- NOTE | 2018-10-30 08:20 | NUR ---
Patient laying down asleep. No distress observed. Continue to monitor.
[2018-10-30] MEDS: vitamin D (cholecalciferol) 1,000 unit tablet PO SCH (08:25)
[2018-10-30] MEDS: benztropine 1mg tablet PO SCH ×2 (08:25→21:18)
[2018-10-30] MEDS: multivitamins, therapeutics tablet PO SCH (08:25)
--- NOTE | 2018-10-30 09:10 | NUR ---
RN gave patient his medication. Patient was speaking in a high pitched voice and asking questions in this same voice. Patient appears to be psychotic. Continue to monitor.
[2018-10-30] MEDS: [UNRECOGNIZED DRUG - REMARK] PO NR (10:01)
--- NOTE | 2018-10-30 11:09 | NUR ---
Patient is up and ambulatory to BR, steady gait. No distress observed. Continue to monitor.
--- NOTE | 2018-10-30 12:20 | NUR ---
Patient awake and laying in bed looking around. No distress observed. Continue to monitor.
--- NOTE | 2018-10-30 15:54 | NUR ---
Patient awake and laying in bed. No distress observed. Continue to monitor.
--- NOTE | 2018-10-30 18:00 | NUR ---
Patient eating dinner. No distress observed. Continue to monitor.
--- NOTE | 2018-10-30 20:20 | NUR ---
Patient sleeping on left side, no distress observed. Continue to monitor.
[2018-10-30] MEDS: OLANZapine 5mg rapidly disint. tablet PO SCH (21:18)
--- NOTE | 2018-10-30 22:24 | NUR ---
Patient sleeping on right side. No restlessness observed. Continue to monitor.
--- NOTE | 2018-10-31 07:00 | NUR ---
Received pt lying in bed awake. Pt did respond to questions, but responded in a made up, growling, dramatic type voice.
[2018-10-31] MEDS: vitamin D (cholecalciferol) 1,000 unit tablet PO SCH (07:29)
[2018-10-31] MEDS: multivitamins, therapeutics tablet PO SCH (07:29)
[2018-10-31] MEDS: benztropine 1mg tablet PO SCH ×3 (07:29→20:21)
--- NOTE | 2018-10-31 09:00 | NUR ---
Pt continues to respond with same type of voice and begins to get louder, the longer RN interacts with him. Pt denies a/v halucinations and S.I. and states he wants to leave.
[2018-10-31] MEDS: [UNRECOGNIZED DRUG - REMARK] PO NR (10:00)
--- NOTE | 2018-10-31 11:00 | NUR ---
Pt sitting calmly on bed without complains.
--- NOTE | 2018-10-31 14:13 | NUR ---
Patient sleeping in bed.
--- NOTE | 2018-10-31 15:38 | NUR ---
Patient remains sleeping in his bed. No complaints today.
--- NOTE | 2018-10-31 17:22 | NUR ---
Patient sitting at the end of his bed watching staff. No distress noted.
--- NOTE | 2018-10-31 19:32 | NUR ---
The patient is resting on his bed. He ate his dinner 100% and then was given a 2nd tray and he ate that tray as well. He gave poor eye contact. Somewhat mechanical in his movments and voice. He stated he was feeling, "pretty good" He stated that he had been on the [facility] and when asked what happened he replied, "I don't know it must have been a mistake" He is taking care of ADLs without prompting. He is polite.
[2018-10-31] MEDS: OLANZapine 5mg rapidly disint. tablet PO SCH (20:21)
--- NOTE | 2018-10-31 20:42 | NUR ---
The patient appears to be asleep at this time
--- NOTE | 2018-10-31 21:50 | NUR ---
The patient is resting on his bed and appears to be asleep but also very restless
--- NOTE | 2018-10-31 23:46 | NUR ---
The patient appears to be sleeping
--- NOTE | 2018-11-01 02:30 | NUR ---
The patient appears to be asleep at this time
--- NOTE | 2018-11-01 04:28 | NUR ---
The patient appears to be asleep
--- NOTE | 2018-11-01 06:30 | NUR ---
Patient is sleeping on his right side. No restelessness/distress observed. Continue to monitor.
--- NOTE | 2018-11-01 08:15 | NUR ---
Patient eating. No distress observed. Continue to monitor.
[2018-11-01] MEDS: vitamin D (cholecalciferol) 1,000 unit tablet PO SCH (08:20)
[2018-11-01] MEDS: multivitamins, therapeutics tablet PO SCH (08:20)
[2018-11-01] MEDS: benztropine 1mg tablet PO SCH ×2 (08:21→20:47)
[2018-11-01] MEDS: [UNRECOGNIZED DRUG - REMARK] PO NR (08:25)
--- NOTE | 2018-11-01 10:35 | NUR ---
Patient is up and ambulatory to BR, steady gait. No distress observed. Continue to monitor.
--- NOTE | 2018-11-01 12:35 | NUR ---
Patient is a little agitated and hit the next door patient's table with foot as he was walking by. RN believes patient is agitated because the previous patient slept and this patient is talking to family at bedside. Continue to monitor.
--- NOTE | 2018-11-01 14:50 | NUR ---
Patient sleeping on left side. No distress observed. Continue to monitor.
--- NOTE | 2018-11-01 16:55 | NUR ---
Patient sleeping on right side, no distress observed. Continue to monitor.
--- NOTE | 2018-11-01 18:05 | NUR ---
Patient awake and reclining in his bed. Patient stated to nurse that he is waiting for dinner. Continue to monitor.
--- NOTE | 2018-11-01 20:09 | NUR ---
The patient ate 100% of his dinner and asked for extra food and ate those as well. He is quiet and does not initiate any kind of social contact with others. His replies to questions are one or two word responses. He accepts direction and has not had any behavioral issues. He denies that he has psychotic symptoms. He denies feeling depressed or anxious. He does have poor insight and inability to plan for food detention or clothing if he were released from the 5150 hold. He was on the [facility] but apparently did not do well there.
[2018-11-01] MEDS: OLANZapine 5mg rapidly disint. tablet PO SCH (20:47)
--- NOTE | 2018-11-01 21:00 | NUR ---
The patient is resting on his bed. He was compliant with his HS medications.
--- NOTE | 2018-11-01 22:39 | NUR ---
The patient is able to ambulate independently and appears to have a steady gait.
--- NOTE | 2018-11-02 00:20 | NUR ---
The patient appears to be sleeping at this time.
--- NOTE | 2018-11-02 03:01 | NUR ---
The patient appears to be asleep at this time.
--- NOTE | 2018-11-02 05:18 | NUR ---
The patient appears to be sleeping at this time.
[2018-11-02 05:46] VITALS: BP 136/78
--- NOTE | 2018-11-02 07:03 | NUR ---
Patient up to bathroom and now laying down in bed. No distress observed. Continue to monitor.
[2018-11-02] MEDS: vitamin D (cholecalciferol) 1,000 unit tablet PO SCH (09:22)
[2018-11-02] MEDS: multivitamins, therapeutics tablet PO SCH (09:23)
[2018-11-02] MEDS: benztropine 1mg tablet PO SCH (09:23)
--- NOTE | 2018-11-02 09:40 | NUR ---
Patient up to BR and back to bed, reclining and awake. No distress observed. continue to monitor.
[2018-11-02] MEDS: [UNRECOGNIZED DRUG - REMARK] PO NR (10:02)
--- NOTE | 2018-11-02 11:15 | NUR ---
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 No distress observed. Patient dressed with $63 and I.D. in his pocket.
== END 2018-11-02 11:15 ==
LOC: ER 16:16
DX: F20.2 Catatonic schizophrenia (principal); F28 Other psychotic disorder not due to a substance or known physiological condition; F15.90 Other stimulant use, unspecified, uncomplicated; F17.210 Nicotine dependence, cigarettes, uncomplicated; Z79.899 Other long term (current) drug therapy
CPT/HCPCS: 36415; 80053; 80305; 80320; 81001; 84443; 85025; 96372; 99285; J2060

== ENCOUNTER 2018-11-12 18:01 | Inpatient (IN) | payer MEDICARE, MEDICAID ==
[~2018-11-12] VITALS: Ht 172.7 cm; Wt 68.0 kg
[~2018-11-12 18:01] MED LIST changes: -BENZ1TAB7 PO; +CHOL10002 PO; -CLOZ200T PO; -CLOZ50TA PO; -DOCU240C26 PO; +FISH12002 PO; -HYDR50CA PO; -MULT-1085 PO; +MULT-933 PO; -OLAN-1 PO; +OLAN15TA3 PO; -RISP4TAB2 PO; -SENN8.6T61 PO; -SERT100T PO; -TRAZ-218 PO; -[UNRECOGNIZED DRUG - CODE] PO
[2018-11-12] MEDS ORDERED: LORazepam 2 mg/ml vial IM ONE (19:40)
--- NOTE | 2018-11-12 19:51 | NUR ---
PT FIGHTING TOO MUCH TO GET VITALS
[2018-11-12] MEDS ORDERED: LORazepam 2 mg/ml vial IV ONE (20:05)
[2018-11-12] MEDS ORDERED: normal saline 1000ML IV soln IVB ONE ×2 (20:05→22:40)
--- NOTE | 2018-11-12 20:18 | NUR ---
PT FIGHTING RESTRAINTS, NONVERBAL, AND NOT FOLLOWING ORDERS. ER [facility] OKAY'D STRAIGHT CATH TO HELP IDENTIFY CAUSE OF ALOC
--- NOTE | 2018-11-12 20:21 | NUR ---
ATTEMPTED TO HAVE PT URINATE INTO A URINAL, BUT PT NOT COOPERATIVE. PCT AYANNA ASSISTING
[2018-11-12 20:24] LABS: BASOPHILS % (AUTO) 0.1 % (0-1); EOSINOPHILS # (AUTO) 0.1 X10'3 (0-0.9); EOSINOPHILS % (AUTO) 0.7 % (0-6); HEMATOCRIT 46.5 % (42.0-52.0); HEMOGLOBIN 15.6 g/dl (14.0-17.9); LYMPHOCYTES # (AUTO) 2.1 X10'3 (1.1-4.8); LYMPHOCYTES % (AUTO) 10.7 % (21-51); MEAN CORPUSCULAR HEMOGLOBIN 31.4 PG (27.0-31.0); MEAN CORPUSCULAR HGB CONC 33.5 g/dL (33.0-36.5); MEAN CORPUSCULAR VOLUME 93.9 FL (78-98); MEAN PLATELET VOLUME 7.7 FL (7.4-10.4); MONOCYTES # (AUTO) 1.2 X10'3 (0-0.9); NEUTROPHILS # (AUTO) 15.9 X10'3 (1.8-7.7); NEUTROPHILS % (AUTO) 82.5 % (42-75); PLATELET COUNT 333 X10'3 (140-440); RED BLOOD COUNT 4.95 X10'6 (4.70-6.10); RED CELL DISTRIBUTION WIDTH 14.7 % (11.5-14.5); WHITE BLOOD COUNT 19.3 X10'3 (4.5-11.0)
[2018-11-12 20:34] LABS: OSMOLALITY 317 MOSM/K (280-300)
[2018-11-12 20:42] LABS: CLARITY,URINE SLIGHTLY CLOUDY (Clear); GLUCOSE, URINE NEGATIVE (Neg); KETONES,URINE 15 mg/dl (Neg); LEUKOCYTE ESTERASE ,URINE NEGATIVE (Neg); NITRITES, URINE NEGATIVE (Neg); OCCULT BLOOD,URINE SMALL (Neg); PH,URINE 5.5 (4.8-8.0); PROTEIN,URINE 30 mg/dl (Neg); UROBILINOGEN,URINE 0.2 E.U/dL (0.2-1.0)
[2018-11-12 20:45] LABS: ALANINE AMINOTRANSFERASE 44 U/L (12-78); ALBUMIN 4.7 G/DL (3.4-5.0); ALBUMIN/GLOBULIN RATIO 1.2 (1.1-1.5); ALKALINE PHOSPHATASE 133 IU/L (46-116); ANION GAP 18 (8-16); ASPARTATE AMINO TRANSFERASE 40 U/L (10-37); BILIRUBIN,TOTAL 0.7 MG/DL (0.1-1.0); BLOOD UREA NITROGEN 41 MG/DL (7-18); BUN/CREATININE RATIO 31.5 (5.4-32.0); CALCIUM 10.3 MG/DL (8.5-10.1); CHLORIDE 106 MMOL/L (99-107); GLUCOSE 103 MG/DL (70-104); POTASSIUM 4.5 MMOL/L (3.5-5.1); SODIUM 146 MMOL/L (135-145); TOTAL PROTEIN 8.5 G/DL (6.4-8.2); eGFR 58 ML/MIN
[2018-11-12 20:47] LABS: UA COLLECTION TYPE STRAIGHT CATH
[2018-11-12 20:48] LABS: COLOR,URINE DARK YELLOW (Yellow)
[2018-11-12 20:50] LABS: BACTERIA,URINE FEW /HPF (Neg); MUCUS STRANDS MODERATE /LPF (Neg); SQUAMOUS EPITHELIAL CELL,UR NONE SEEN /LPF (FEW); WBC,URINE NONE SEEN /HPF (0-4)
[2018-11-12 20:51] LABS: AMORPHOUS URATES 4+; SPERM MODERATE /HPF (NEGATIVE)
[2018-11-12 20:52] LABS: URINE AMPHETAMINE SCREEN POSITIVE (Neg); URINE BARBITUATE SCREEN NEGATIVE (Neg); URINE BENZODIAZEPINES SCREEN NEGATIVE (Neg); URINE CANNABINOID SCREEN NEGATIVE (Neg); URINE COCAINE SCREEN NEGATIVE (Neg); URINE METHADONE SCREEN NEGATIVE (Neg); URINE OPIATE SCREEN NEGATIVE (Neg); URINE PHENCYCLIDINE SCREEN NEGATIVE (Neg)
[2018-11-12 20:54] LABS: CREATINE KINASE 669 U/L (39-308); ETHANOL < 0.010 GM/DL (0.0-0.010)
[2018-11-12 20:57] LABS: ACETAMINOPHEN < 2.0 UG/ML (10-30)
--- NOTE | 2018-11-12 21:19 | NUR ---
DUE TO PT'S STATUS POST MEDICATION, PT UNABLE TO PARTICIPATE IN TELEPSYCH.
--- NOTE | 2018-11-12 21:29 | NUR ---
PA AT BEDSIDE FURTHER ASSESSING PT FOR POTENTIAL HEAD TRAUMA.
[2018-11-12] MEDS ORDERED: normal saline 1000ml 1,000 ML IV ONE (21:30)
--- NOTE | 2018-11-12 23:12 | NUR ---
spoke with poison control where they suggested repeat labs around 0030 and asked if we could report labs to them with results.
[2018-11-12] MEDS ORDERED: CefTRIAXone/D5W-Rocephin 1gm 50 ML IV ONE (23:15)
[2018-11-12] MEDS ORDERED: morphine 4 MG/ML inj SYRINge IV PRN ×2 (23:50)
[2018-11-12] MEDS ORDERED: magnesium hydroxide 30ml (MOM) UD suspension PO PRN (23:50)
[2018-11-12] MEDS ORDERED: HYDROcodone/acetaminophen 5mg/325mg tablet PO PRN (23:50)
[2018-11-12] MEDS ORDERED: mag hydrox/Alum hydrox/simeth 30ml oral suspension PO PRN (23:50)
[2018-11-12] MEDS ORDERED: ondansetron/PF 4mg/2ml inj IV PRN (23:50)
[2018-11-13] MEDS ORDERED: UNABLE TO OBTAIN (00:12)
--- NOTE | 2018-11-13 00:40 | NUR ---
REPORT CALLED TO OK MEJIA
[2018-11-13] MEDS: dextrose 5%-1/2 normal saline 1,000 ML IV SCH ×3 (00:43→11:23)
[2018-11-13 01:05] LABS: ALANINE AMINOTRANSFERASE 37 U/L (12-78); ALBUMIN 3.4 G/DL (3.4-5.0); ALBUMIN/GLOBULIN RATIO 1.2 (1.1-1.5); ALKALINE PHOSPHATASE 101 IU/L (46-116); ANION GAP 15 (8-16); ASPARTATE AMINO TRANSFERASE 52 U/L (10-37); BILIRUBIN,TOTAL 0.5 MG/DL (0.1-1.0); BLOOD UREA NITROGEN 35 MG/DL (7-18); BUN/CREATININE RATIO 39.3 (5.4-32.0); CALCIUM 7.6 MG/DL (8.5-10.1); CHLORIDE 110 MMOL/L (99-107); CREATININE 0.89 MG/DL (0.60-1.10); GLUCOSE 83 MG/DL (70-104); POTASSIUM 3.7 MMOL/L (3.5-5.1); SODIUM 145 MMOL/L (135-145); TOTAL PROTEIN 6.3 G/DL (6.4-8.2); eGFR 90 ML/MIN
[2018-11-13 01:07] LABS: OSMOLALITY 310 MOSM/K (280-300)
--- NOTE | 2018-11-13 01:40 | NUR ---
Patient in room TREY 345. I have received report from ER nurse, Carol, RN and had the opportunity to ask questions and assume patient care...reported pt had straight cath about 1999 last night (with a coude cath) & had not urinated since receiving a large volume of IV fluids; Carol states she reported this to Dr Murphy & informed by MD for cole cath to be placed...Dr Murphy here to see another pt & confirmed need to have a cole placed; order received
[2018-11-13 01:45] VITALS: BP 97/50
[2018-11-13] MEDS ORDERED: morphine 2 MG/ML inj. syringe IV PRN ×2 (01:45)
[2018-11-13 05:23] LABS: BASOPHILS % (AUTO) 0.3 % (0-1); EOSINOPHILS % (AUTO) 0.6 % (0-6); HEMATOCRIT 36.3 % (42.0-52.0); HEMOGLOBIN 12.3 g/dl (14.0-17.9); LYMPHOCYTES # (AUTO) 1.2 X10'3 (1.1-4.8); MEAN CORPUSCULAR HEMOGLOBIN 31.9 PG (27.0-31.0); MEAN CORPUSCULAR HGB CONC 33.8 g/dL (33.0-36.5); MEAN CORPUSCULAR VOLUME 94.1 FL (78-98); MEAN PLATELET VOLUME 7.7 FL (7.4-10.4); MONOCYTES # (AUTO) 0.7 X10'3 (0-0.9); MONOCYTES % (AUTO) 10.6 % (2-12); NEUTROPHILS # (AUTO) 4.9 X10'3 (1.8-7.7); NEUTROPHILS % (AUTO) 71.5 % (42-75); PLATELET COUNT 210 X10'3 (140-440); RED BLOOD COUNT 3.86 X10'6 (4.70-6.10); RED CELL DISTRIBUTION WIDTH 14.9 % (11.5-14.5); WHITE BLOOD COUNT 6.9 X10'3 (4.5-11.0)
[2018-11-13 05:39] LABS: ALBUMIN 3.3 G/DL (3.4-5.0); ANION GAP 14 (8-16); BLOOD UREA NITROGEN 30 MG/DL (7-18); BUN/CREATININE RATIO 38.5 (5.4-32.0); CALCIUM 7.7 MG/DL (8.5-10.1); CHLORIDE 111 MMOL/L (99-107); CREATININE 0.78 MG/DL (0.60-1.10); GLUCOSE 81 MG/DL (70-104); POTASSIUM 3.7 MMOL/L (3.5-5.1); SODIUM 145 MMOL/L (135-145); TOTAL CARBON DIOXIDE 19.7 MMOL/L (24-32); eGFR > 90 ML/MIN
--- NOTE | 2018-11-13 06:30 | NUR ---
pt arouses more easily since admission to floor; report given to JACKIE Sanchez; aware to followup on routine hospital questions
--- NOTE | 2018-11-13 06:44 | NUR ---
Patient in room TREY 345. I have received report from JACKIE EUCEDA and had the opportunity to ask questions and assume patient care.
[2018-11-13 07:35] VITALS: BP 110/68
[2018-11-13] MEDS: enoxaparin 40mg/0.4ml syringe SUBCUT SCH (08:25)
[2018-11-13 10:51] LABS: CREATINE KINASE 5873 U/L (39-308)
[2018-11-13 11:00] VITALS: BP_SYST 124; BP_SYST 154; BP_DIAS 104; BP_DIAS 61
[2018-11-13] MEDS: sodium bicarbonate 650mg tablet PO SCH ×2 (11:23→13:00)
[2018-11-13] MEDS ORDERED: haloperidol lactate 5mg/ml inj IM PRN (11:35)
[2018-11-13] MEDS ORDERED: LORazepam 2 mg/ml vial IV PRN (11:35)
[2018-11-13] MEDS ORDERED: haloperidol 5mg tablet PO PRN (11:35)
[2018-11-13] MEDS: acetaminophen 325mg tablet PO PRN ×2 (16:36→23:35)
--- NOTE | 2018-11-13 18:27 | NUR ---
Problems reprioritized. Patient report given, questions answered & plan of care reviewed with noe coppola.
--- NOTE | 2018-11-13 18:30 | NUR ---
Patient in room TREY 345. I have received report from Laura MEJIA and had the opportunity to ask questions and assume patient care.
[2018-11-13 20:00] VITALS: BP 131/69
[2018-11-13] MEDS: OLANZapine 5mg rapidly disint. tablet PO SCH (20:48)
[2018-11-13] MEDS: sodium bicarbonate (8.4%) inj. 150 MEQ in dextrose 5%-water 1,000 ML IV SCH (20:49)
[2018-11-14 00:02] VITALS: BP_SYST 89; BP_SYST 99; BP_DIAS 48; BP_DIAS 53
[2018-11-14 05:01] LABS: BASOPHILS % (AUTO) 0.2 % (0-1); EOSINOPHILS % (AUTO) 0 % (0-6); HEMATOCRIT 35.1 % (42.0-52.0); LYMPHOCYTES # (AUTO) 0.5 X10'3 (1.1-4.8); LYMPHOCYTES % (AUTO) 15.3 % (21-51); MEAN CORPUSCULAR HEMOGLOBIN 31.7 PG (27.0-31.0); MEAN CORPUSCULAR HGB CONC 34.2 g/dL (33.0-36.5); MEAN CORPUSCULAR VOLUME 92.9 FL (78-98); MEAN PLATELET VOLUME 7.5 FL (7.4-10.4); MONOCYTES # (AUTO) 0.1 X10'3 (0-0.9); MONOCYTES % (AUTO) 3.7 % (2-12); NEUTROPHILS # (AUTO) 2.8 X10'3 (1.8-7.7); NEUTROPHILS % (AUTO) 80.8 % (42-75); PLATELET COUNT 188 X10'3 (140-440); RED BLOOD COUNT 3.78 X10'6 (4.70-6.10); RED CELL DISTRIBUTION WIDTH 14.7 % (11.5-14.5); WHITE BLOOD COUNT 3.4 X10'3 (4.5-11.0)
[2018-11-14 05:10] LABS: PROTHROMBIN TIME 10.6 SECONDS (9.0-12.0)
[2018-11-14 05:26] LABS: ALANINE AMINOTRANSFERASE 46 U/L (12-78); ALBUMIN 2.7 G/DL (3.4-5.0); ALKALINE PHOSPHATASE 90 IU/L (46-116); AMYLASE 31 U/L (25-115); ANION GAP 6 (8-16); ASPARTATE AMINO TRANSFERASE 81 U/L (10-37); BILIRUBIN,TOTAL 0.3 MG/DL (0.1-1.0); BLOOD UREA NITROGEN 16 MG/DL (7-18); BUN/CREATININE RATIO 21.3 (5.4-32.0); CALCIUM 7.7 MG/DL (8.5-10.1); CHLORIDE 105 MMOL/L (99-107); CREATININE 0.75 MG/DL (0.60-1.10); GLUCOSE 117 MG/DL (70-104); LIPASE 217 U/L (73-393); MAGNESIUM 1.7 MG/DL (1.5-2.4); PHOSPHORUS 1.6 MG/DL (2.3-4.5); POTASSIUM 3.2 MMOL/L (3.5-5.1); SODIUM 140 MMOL/L (135-145); TOTAL PROTEIN 5.4 G/DL (6.4-8.2); eGFR > 90 ML/MIN
[2018-11-14 05:27] LABS: CREATINE KINASE 3761 U/L (39-308)
[2018-11-14] MEDS: sodium bicarbonate (8.4%) inj. 150 MEQ in dextrose 5%-water 1,000 ML IV SCH (05:47)
--- NOTE | 2018-11-14 06:00 | NUR ---
Problems reprioritized. Patient report given, questions answered & plan of care reviewed with Deidra MEJIA.
--- NOTE | 2018-11-14 06:32 | NUR ---
Patient in room TREY 345. I have received report from AMANDA MEJIA and had the opportunity to ask questions and assume patient care.
[2018-11-14 07:04] VITALS: BP 110/61
[2018-11-14] MEDS: vitamin D (cholecalciferol) 1,000 unit tablet PO SCH (07:19)
[2018-11-14] MEDS: OMEGA-3/DHA/EPA/FISH OIL 1 EACH CAPSULE.DR PO SCH (07:19)
[2018-11-14] MEDS: multivitamins, therapeutics tablet PO SCH (07:19)
[2018-11-14] MEDS: pantoprazole 40mg Tablet.DR PO SCH (07:19)
[2018-11-14] MEDS: enoxaparin 40mg/0.4ml syringe SUBCUT SCH (07:20)
[2018-11-14] MEDS ORDERED: magnesium Cl slow-release 64mg tablet PO PRN (11:00)
[2018-11-14] MEDS ORDERED: magnesium 4gm in 100ml NS 100 ML IV PRN (11:00)
[2018-11-14] MEDS ORDERED: potassium Cl 20 mEq SR tablet PO PRN (11:00)
[2018-11-14] MEDS ORDERED: sodium phosphate inj. 30 MMOL in dextrose 5%-water 250 ML IV ONE (11:00)
[2018-11-14] MEDS ORDERED: potassium Cl 40MEQ/NS 500ml 500 ML IV PRN ×2 (11:00)
[2018-11-14] MEDS: acetaminophen 325mg tablet PO PRN ×2 (11:09→20:05)
[2018-11-14] MEDS: potassium Cl 20 mEq SR tablet PO PRN ×3 (11:09→20:06)
[2018-11-14] MEDS: potassium CL 20mEq in D5-1/2NS 1,000 ML IV SCH ×2 (11:11→20:13)
[2018-11-14] MEDS ORDERED: potassium phosphate inj 30 MMOL in normal saline 500ml IV soln 490 ML IV ONE (11:45)
[2018-11-14 12:23] VITALS: BP 106/75
--- NOTE | 2018-11-14 16:53 | NUR ---
patient appears agitated when woken up. most of shift spent under covers with sheet over head. minimal conversation when spoken to. Telepsych done, surprisingly patient quite conversant with psychiatrist on telepsych. able to make sentences and spoke in an orientated way back to psychiatrist. Reverted back under sheets when telepsych complete. Sitter at bedside.
--- NOTE | 2018-11-14 18:52 | NUR ---
Problems reprioritized. Patient report given, questions answered & plan of care reviewed with HENRIK MEJIA.
--- NOTE | 2018-11-14 18:53 | NUR ---
Patient in room TREY 345. I have received report from SUELLEN MEJIA and had the opportunity to ask questions and assume patient care.
[2018-11-14 20:00] VITALS: BP 103/61
[2018-11-14] MEDS: OLANZapine 5mg rapidly disint. tablet PO SCH (20:04)
[2018-11-15] VITALS: BP 104/57
[2018-11-15] MEDS: potassium CL 20mEq in D5-1/2NS 1,000 ML IV SCH ×2 (04:08→17:44)
[2018-11-15 05:25] LABS: BASOPHILS % (AUTO) 0.4 % (0-1); EOSINOPHILS % (AUTO) 0.8 % (0-6); HEMATOCRIT 33.1 % (42.0-52.0); HEMOGLOBIN 11.5 g/dl (14.0-17.9); LYMPHOCYTES % (AUTO) 34.1 % (21-51); MEAN CORPUSCULAR HEMOGLOBIN 32.3 PG (27.0-31.0); MEAN CORPUSCULAR HGB CONC 34.7 g/dL (33.0-36.5); MEAN CORPUSCULAR VOLUME 93.1 FL (78-98); MEAN PLATELET VOLUME 7.9 FL (7.4-10.4); MONOCYTES # (AUTO) 0.3 X10'3 (0-0.9); MONOCYTES % (AUTO) 10.1 % (2-12); NEUTROPHILS # (AUTO) 1.6 X10'3 (1.8-7.7); NEUTROPHILS % (AUTO) 54.6 % (42-75); PLATELET COUNT 171 X10'3 (140-440); RED BLOOD COUNT 3.55 X10'6 (4.70-6.10); RED CELL DISTRIBUTION WIDTH 14.9 % (11.5-14.5)
[2018-11-15 05:51] LABS: ALANINE AMINOTRANSFERASE 46 U/L (12-78); ALBUMIN 2.5 G/DL (3.4-5.0); ALBUMIN/GLOBULIN RATIO 0.9 (1.1-1.5); ALKALINE PHOSPHATASE 87 IU/L (46-116); AMYLASE 21 U/L (25-115); ANION GAP 6 (8-16); ASPARTATE AMINO TRANSFERASE 61 U/L (10-37); BILIRUBIN,TOTAL 0.2 MG/DL (0.1-1.0); BLOOD UREA NITROGEN 10 MG/DL (7-18); BUN/CREATININE RATIO 14.7 (5.4-32.0); CALCIUM 7.9 MG/DL (8.5-10.1); CHLORIDE 107 MMOL/L (99-107); CREATININE 0.68 MG/DL (0.60-1.10); GLUCOSE 102 MG/DL (70-104); INR 1.1 INR; LIPASE 111 U/L (73-393); MAGNESIUM 1.8 MG/DL (1.5-2.4); PHOSPHORUS 2.7 MG/DL (2.3-4.5); POTASSIUM 4.1 MMOL/L (3.5-5.1); PROTHROMBIN TIME 10.7 SECONDS (9.0-12.0); SODIUM 139 MMOL/L (135-145); TOTAL CARBON DIOXIDE 26.2 MMOL/L (24-32); TOTAL PROTEIN 5.4 G/DL (6.4-8.2); eGFR > 90 ML/MIN
[2018-11-15 06:09] LABS: CREATINE KINASE 2039 U/L (39-308)
--- NOTE | 2018-11-15 06:24 | NUR ---
Problems reprioritized. Patient report given, questions answered & plan of care reviewed with SUELLEN MEJIA.
--- NOTE | 2018-11-15 06:47 | NUR ---
Patient in room TREY 345. I have received report from jaleel lui and had the opportunity to ask questions and assume patient care.
[2018-11-15 07:00] VITALS: BP 103/55
[2018-11-15 07:24] LABS: PLATELET ESTIMATE NORMAL; TOTAL CELLS COUNTED 100
[2018-11-15] MEDS: OMEGA-3/DHA/EPA/FISH OIL 1 EACH CAPSULE.DR PO SCH (08:00)
[2018-11-15] MEDS: vitamin D (cholecalciferol) 1,000 unit tablet PO SCH (08:13)
[2018-11-15] MEDS: enoxaparin 40mg/0.4ml syringe SUBCUT SCH (08:13)
[2018-11-15] MEDS: pantoprazole 40mg Tablet.DR PO SCH (08:13)
[2018-11-15] MEDS: multivitamins, therapeutics tablet PO SCH (08:13)
--- NOTE | 2018-11-15 10:05 | NUR ---
SS received t/c from Dr. Chavez, pt's CT psychiatrist, per consultation SS was informed that Dr. Chavez had contacted [facility] and advocated for pt to be admitted to [facility] when he is 5150'd and for [facility] to begin the process of [facility] conservatorship for pt. Plan: SS will review telpsych eval, coordinate 5150 eval w/[facility] and advocate for pt to be placed @ [facility] as they are aware of his needs and can coordinate an aftercare plan with his [facility] providers.
[2018-11-15] MEDS ORDERED: normal saline 1000ml 1,000 ML IV ONE (10:20)
--- NOTE | 2018-11-15 11:32 | NUR ---
SS met with pt to monitor his mental status. Pt alert, unclear as to orientation as pt did not respond to SS, staring off into space. Sitter reports that pt becomes agitated about 20 minutes ago when the nurse attempt to wake him. SS met w/attending RN to gather current info re pt's tx & progress. Per discussion, pt completed a telepsych eval yesterday, and has been more agitated since this morning. Pt is not yet medically cleared for discharge. SS reviewed telepsych report, noted recommendation for 5150 so pt can access [facility]. SS will monitor and coordinate w/[facility] so pt can access a 5150 eval once he's medically cleared for d/c.
[2018-11-15] MEDS ORDERED: LORazepam 2 mg/ml vial IV PRN (11:35)
[2018-11-15] MEDS ORDERED: LORazepam 1 MG tablet PO PRN (11:35)
[2018-11-15 12:34] LABS: CREATINE KINASE 1688 U/L (39-308)
--- NOTE | 2018-11-15 14:50 | NUR ---
SS reviewed pt's chart, noted LE case #[id number], SS contacted [phone], spoke w/dispatcher to ascertain if LE needs to be notify in the event that pt is cleared for d/c; per consultation, [facility] informed that when pt is medically cleared for discharge [facility] needs to be notify. Attending RN informed.
--- NOTE | 2018-11-15 17:00 | NUR ---
patient for most of shift refusing to talk with staff will follow commands. Appeared more agitated at times when woken up. refused shower. Lying for most of day with head under sheet. sitter present.
[2018-11-15 19:00] VITALS: BP 108/61
[2018-11-15] MEDS: OLANZAPINE 5 MG TABLET PO SCH (20:42)
[2018-11-15 23:40] VITALS: BP 106/59
--- NOTE | 2018-11-15 23:54 | NUR ---
Problems reprioritized. Patient report given, questions answered & plan of care reviewed with danelle MEJIA.
[2018-11-16] MEDS: potassium CL 20mEq in D5-1/2NS 1,000 ML IV SCH ×4 (01:19→17:48)
--- NOTE | 2018-11-16 01:33 | NUR ---
Assumed care of patient at 00:30 was sleeping until now. When sleeping curls up on side and covers head completely. Cooperative with allowing scanning of armband for IV fluids but immediately covered back up.
[2018-11-16 05:24] LABS: PROTHROMBIN TIME 10.1 SECONDS (9.0-12.0)
[2018-11-16 05:25] LABS: BASOPHILS % (AUTO) 0.4 % (0-1); EOSINOPHILS % (AUTO) 0.4 % (0-6); HEMATOCRIT 34.6 % (42.0-52.0); LYMPHOCYTES # (AUTO) 1.5 X10'3 (1.1-4.8); LYMPHOCYTES % (AUTO) 48.1 % (21-51); MEAN CORPUSCULAR HEMOGLOBIN 32.1 PG (27.0-31.0); MEAN CORPUSCULAR HGB CONC 34.7 g/dL (33.0-36.5); MEAN CORPUSCULAR VOLUME 92.4 FL (78-98); MEAN PLATELET VOLUME 7.8 FL (7.4-10.4); MONOCYTES # (AUTO) 0.4 X10'3 (0-0.9); MONOCYTES % (AUTO) 13.3 % (2-12); NEUTROPHILS # (AUTO) 1.2 X10'3 (1.8-7.7); NEUTROPHILS % (AUTO) 37.8 % (42-75); PLATELET COUNT 193 X10'3 (140-440); RED BLOOD COUNT 3.74 X10'6 (4.70-6.10); RED CELL DISTRIBUTION WIDTH 14.8 % (11.5-14.5); WHITE BLOOD COUNT 3.1 X10'3 (4.5-11.0)
[2018-11-16 05:44] LABS: ALANINE AMINOTRANSFERASE 47 U/L (12-78); ALBUMIN 2.7 G/DL (3.4-5.0); ALBUMIN/GLOBULIN RATIO 0.9 (1.1-1.5); ALKALINE PHOSPHATASE 92 IU/L (46-116); AMYLASE 27 U/L (25-115); ANION GAP 7 (8-16); ASPARTATE AMINO TRANSFERASE 51 U/L (10-37); BILIRUBIN,TOTAL 0.2 MG/DL (0.1-1.0); BLOOD UREA NITROGEN 9 MG/DL (7-18); BUN/CREATININE RATIO 13.2 (5.4-32.0); CALCIUM 8.3 MG/DL (8.5-10.1); CHLORIDE 107 MMOL/L (99-107); CREATININE 0.68 MG/DL (0.60-1.10); GLUCOSE 90 MG/DL (70-104); LIPASE 131 U/L (73-393); MAGNESIUM 1.8 MG/DL (1.5-2.4); PHOSPHORUS 3.3 MG/DL (2.3-4.5); POTASSIUM 4.1 MMOL/L (3.5-5.1); SODIUM 141 MMOL/L (135-145); TOTAL CARBON DIOXIDE 26.7 MMOL/L (24-32); TOTAL PROTEIN 5.6 G/DL (6.4-8.2); eGFR > 90 ML/MIN
[2018-11-16 05:52] LABS: CREATINE KINASE 1284 U/L (39-308)
--- NOTE | 2018-11-16 07:00 | NUR ---
Patient in room TREY 345. I have received report from JACKIE Cordova and had the opportunity to ask questions and assume patient care. Patient resting comfortably at this time. Sitter bedside. Call light and items of frequent use in reach of patient.
[2018-11-16 07:15] VITALS: BP 116/74
[2018-11-16] MEDS: OMEGA-3/DHA/EPA/FISH OIL 1 EACH CAPSULE.DR PO SCH (08:46)
[2018-11-16] MEDS: pantoprazole 40mg Tablet.DR PO SCH (08:46)
[2018-11-16] MEDS: vitamin D (cholecalciferol) 1,000 unit tablet PO SCH (08:47)
[2018-11-16] MEDS: multivitamins, therapeutics tablet PO SCH (08:47)
[2018-11-16] MEDS: enoxaparin 40mg/0.4ml syringe SUBCUT SCH (08:47)
[2018-11-16 11:42] VITALS: BP 109/58
--- NOTE | 2018-11-16 12:08 | NUR ---
SS met pt @ bedside, attempted to engage pt in semi-structured psychosocial assessment. Pt alert, chose not to engage w/SS, demanded that SS leave the room, and pulled cover over his head. Sitter reports that pt consumed all of his breakfast, and chose to hide under the blanket most of the time, is cooperative when care team provide routine check/care. Pt is not medically clear for d/c yet. SS will continue to monitor and provide linkage to [facility] for 5150 eval once pt is medically stable for d/c.
--- NOTE | 2018-11-16 18:40 | NUR ---
Patient in room TREY 345. I have received report from Isatu and had the opportunity to ask questions and assume patient care. Patient laying in bed, with sitter at bedside. Will continue to monitor.
--- NOTE | 2018-11-16 18:41 | NUR ---
Problems reprioritized. Patient report given, questions answered & plan of care reviewed with JACKIE Reynoso. Patient resting comfortably at this time. Sitter at bedside. Call light and items of frequent use in reach of patient.
[2018-11-16 19:00] VITALS: BP 112/80
[2018-11-16] MEDS: OLANZAPINE 5 MG TABLET PO SCH (22:04)
[2018-11-17] VITALS: BP 130/70
[2018-11-17] MEDS: potassium CL 20mEq in D5-1/2NS 1,000 ML IV SCH ×3 (01:25→16:23)
[2018-11-17 05:15] LABS: BASOPHILS % (AUTO) 0.4 % (0-1); EOSINOPHILS % (AUTO) 0.1 % (0-6); HEMOGLOBIN 12.2 g/dl (14.0-17.9); LYMPHOCYTES # (AUTO) 1.6 X10'3 (1.1-4.8); LYMPHOCYTES % (AUTO) 42.9 % (21-51); MEAN CORPUSCULAR HEMOGLOBIN 31.7 PG (27.0-31.0); MEAN CORPUSCULAR VOLUME 93.3 FL (78-98); MEAN PLATELET VOLUME 7.4 FL (7.4-10.4); MONOCYTES # (AUTO) 0.4 X10'3 (0-0.9); MONOCYTES % (AUTO) 11.6 % (2-12); NEUTROPHILS # (AUTO) 1.6 X10'3 (1.8-7.7); PLATELET COUNT 214 X10'3 (140-440); RED BLOOD COUNT 3.86 X10'6 (4.70-6.10); RED CELL DISTRIBUTION WIDTH 14.3 % (11.5-14.5); WHITE BLOOD COUNT 3.6 X10'3 (4.5-11.0)
[2018-11-17 05:28] LABS: INR 1.1 INR; PROTHROMBIN TIME 10.9 SECONDS (9.0-12.0)
[2018-11-17 05:38] LABS: ALANINE AMINOTRANSFERASE 46 U/L (12-78); ALBUMIN 2.8 G/DL (3.4-5.0); ALBUMIN/GLOBULIN RATIO 0.9 (1.1-1.5); ALKALINE PHOSPHATASE 87 IU/L (46-116); AMYLASE 33 U/L (25-115); ANION GAP 9 (8-16); ASPARTATE AMINO TRANSFERASE 38 U/L (10-37); BILIRUBIN,TOTAL 0.2 MG/DL (0.1-1.0); BLOOD UREA NITROGEN 13 MG/DL (7-18); CALCIUM 8.6 MG/DL (8.5-10.1); CHLORIDE 106 MMOL/L (99-107); CREATINE KINASE 483 U/L (39-308); CREATININE 0.62 MG/DL (0.60-1.10); GLUCOSE 97 MG/DL (70-104); LIPASE 156 U/L (73-393); MAGNESIUM 1.8 MG/DL (1.5-2.4); PHOSPHORUS 3.5 MG/DL (2.3-4.5); POTASSIUM 4.2 MMOL/L (3.5-5.1); SODIUM 142 MMOL/L (135-145); TOTAL CARBON DIOXIDE 27.1 MMOL/L (24-32); TOTAL PROTEIN 5.9 G/DL (6.4-8.2); eGFR > 90 ML/MIN
--- NOTE | 2018-11-17 06:14 | NUR ---
Problems reprioritized. Patient report given, questions answered & plan of care reviewed with Isatu MEJIA. Sitnuzhat at bedside.
--- NOTE | 2018-11-17 06:18 | NUR ---
Patient in room TREY 345. I have received report from JACKIE Reynoso and had the opportunity to ask questions and assume patient care. Patient resting comfortably at this time with sitter bedside. Call light and items of frequent use in reach of patient.
[2018-11-17 07:47] VITALS: BP 96/53
[2018-11-17] MEDS: multivitamins, therapeutics tablet PO SCH (07:49)
[2018-11-17] MEDS: vitamin D (cholecalciferol) 1,000 unit tablet PO SCH (07:49)
[2018-11-17] MEDS: pantoprazole 40mg Tablet.DR PO SCH (07:49)
[2018-11-17] MEDS: enoxaparin 40mg/0.4ml syringe SUBCUT SCH (07:49)
[2018-11-17] MEDS: OMEGA-3/DHA/EPA/FISH OIL 1 EACH CAPSULE.DR PO SCH (07:49)
[2018-11-17 11:00] VITALS: BP 104/55
[2018-11-17] MEDS ORDERED: LORazepam 2 mg/ml vial IV PRN (11:35)
[2018-11-17] MEDS ORDERED: LORazepam 1 MG tablet PO PRN (11:35)
--- NOTE | 2018-11-17 12:40 | NUR ---
Initial: Pt admit for acute toxic encephalopathy, now resolved per MD note. Pt PO intake fluctuates: 2/5-100%, 2/6 AM-100%, Mid-refused, PM-25%, 2/7 AM-no documentation, Mid-75%, PM refused, likely meeting nutrition needs. Per RN note pt is w/ sheet over his face refusing to answer any questions. Pt is AO x2. LBM /, w/ MoM PRN not yet given. Will continue to monitor. Rec: 1. Continue on regular diet 2. Monitor for bowel care 3. Monitor for ONS 4. Wt per rx Addendum: 11/17/18 at [address] Amended: Links added. Addendum: 11/17/18 at [address] I have reviewed and agree with note by Client Program Manager. Sophie Solis RD
--- NOTE | 2018-11-17 18:09 | NUR ---
Problems reprioritized. Patient report given, questions answered & plan of care reviewed with JACKIE Reynoso. Patient resting comfortably at this time. Sitter bedside. Call light and items of frequent in reach of patient.
--- NOTE | 2018-11-17 18:10 | NUR ---
Patient in room TREY 345. I have received report from Isatu MEJIA and had the opportunity to ask questions and assume patient care. Patient resting on right side, will continue to monitor.
[2018-11-17 19:00] VITALS: BP 110/59
[2018-11-17] MEDS: OLANZAPINE 5 MG TABLET PO SCH (21:19)
[2018-11-18] VITALS: BP 115/57
[2018-11-18] MEDS: potassium CL 20mEq in D5-1/2NS 1,000 ML IV SCH (02:15)
[2018-11-18 06:15] LABS: PROTHROMBIN TIME 10.2 SECONDS (9.0-12.0)
[2018-11-18 06:17] LABS: ALANINE AMINOTRANSFERASE 55 U/L (12-78); ALBUMIN 2.9 G/DL (3.4-5.0); ALKALINE PHOSPHATASE 92 IU/L (46-116); AMYLASE 40 U/L (25-115); ANION GAP 8 (8-16); ASPARTATE AMINO TRANSFERASE 38 U/L (10-37); BILIRUBIN,TOTAL 0.1 MG/DL (0.1-1.0); BLOOD UREA NITROGEN 18 MG/DL (7-18); BUN/CREATININE RATIO 25.7 (5.4-32.0); CALCIUM 8.4 MG/DL (8.5-10.1); CHLORIDE 106 MMOL/L (99-107); GLUCOSE 98 MG/DL (70-104); LIPASE 179 U/L (73-393); MAGNESIUM 1.7 MG/DL (1.5-2.4); PHOSPHORUS 3.4 MG/DL (2.3-4.5); POTASSIUM 4.2 MMOL/L (3.5-5.1); SODIUM 142 MMOL/L (135-145); TOTAL CARBON DIOXIDE 28.3 MMOL/L (24-32); TOTAL PROTEIN 5.9 G/DL (6.4-8.2); eGFR > 90 ML/MIN
--- NOTE | 2018-11-18 06:30 | NUR ---
Patient in room TREY 345. I have received report from JACKIE Reynoso and had the opportunity to ask questions and assume patient care.
--- NOTE | 2018-11-18 06:36 | NUR ---
Problems reprioritized. Patient report given, questions answered & plan of care reviewed with Rosalind MEJIA. Patient resting on left with blankets over self. Sitter at bedside.
[2018-11-18 07:32] VITALS: BP 108/63
[2018-11-18 09:20] LABS: CREATINE KINASE 165 U/L (39-308)
[2018-11-18] MEDS: vitamin D (cholecalciferol) 1,000 unit tablet PO SCH (09:35)
[2018-11-18] MEDS: OMEGA-3/DHA/EPA/FISH OIL 1 EACH CAPSULE.DR PO SCH (09:35)
[2018-11-18] MEDS: pantoprazole 40mg Tablet.DR PO SCH (09:35)
[2018-11-18] MEDS: multivitamins, therapeutics tablet PO SCH (09:35)
[2018-11-18] MEDS: enoxaparin 40mg/0.4ml syringe SUBCUT SCH (09:36)
[2018-11-18 11:30] VITALS: BP 104/58
[2018-11-18] MEDS ORDERED: PANT40TA4 PO (13:42)
--- NOTE | 2018-11-18 14:30 | NUR ---
Behavioral Health Evaluation Call received from Marina Askew LCSW at [facility] to present update on patient. Patient has been placed on a 5150 hold by [facility]. [facility] now has jurisdiction over patient's placement. It is the plan for [facility] to send patient to [facility] per DC request to begin the process for full Conservatorship status.
--- NOTE | 2018-11-18 16:00 | NUR ---
Patient not able to go to [facility] health because he has [facility] insurance? I have never heard that but Dr. Apodaca spoke to Dr. Malik about it and the patient needs to go to ED overflow as soon as they have a bed. I'm not completely sure as to why; but the Doctors spoke and he will go down to ED overflow when there is a bed.
--- NOTE | 2018-11-18 18:20 | NUR ---
Problems reprioritized. Patient report given, questions answered & plan of care reviewed with JACKIE Penn.
[2018-11-18 20:00] VITALS: BP 120/60
[2018-11-18] MEDS: OLANZAPINE 5 MG TABLET PO SCH (20:11)
--- NOTE | 2018-11-18 22:04 | NUR ---
Patient in room TREY 345. I have received report from JACKIE Boyer and had the opportunity to ask questions and assume patient care. Addendum: 11/18/18 at 2209 by Isamar Willard RN Amended: Links added.
[2018-11-18 23:55] VITALS: BP 122/66
--- NOTE | 2018-11-19 06:20 | NUR ---
Problems reprioritized. Patient report given, questions answered & plan of care reviewed with JACKIE Milton. Addendum: 11/19/18 at 0620 by Isamar Willard RN Amended: Links added.
--- NOTE | 2018-11-19 06:25 | NUR ---
Patient in room TREY 345. I have received report from JACKIE Penn and had the opportunity to ask questions and assume patient care.
[2018-11-19 06:30] VITALS: BP_SYST 123; BP_SYST 141; BP_DIAS 69; BP_DIAS 94
[2018-11-19] MEDS: vitamin D (cholecalciferol) 1,000 unit tablet PO SCH (08:32)
[2018-11-19] MEDS: OMEGA-3/DHA/EPA/FISH OIL 1 EACH CAPSULE.DR PO SCH (08:32)
[2018-11-19] MEDS: multivitamins, therapeutics tablet PO SCH (08:32)
[2018-11-19] MEDS: enoxaparin 40mg/0.4ml syringe SUBCUT SCH (08:33)
[2018-11-19] MEDS: pantoprazole 40mg Tablet.DR PO SCH (08:33)
--- NOTE | 2018-11-19 10:00 | NUR ---
Report called to [facility] RN, Mango.
--- NOTE | 2018-11-19 10:03 | NUR ---
SS consulted with attending RN and was informed that pt's been accepted for [facility] [place] and will be transported there this AM. SS had t/c with [facility] SW to ensure continuity of care for pt.
--- NOTE | 2018-11-19 11:04 | NUR ---
Pt states he has money in our safe, called admitting and they have no log of any belongings stored in our safe.
--- NOTE | 2018-11-19 16:40 | NUR ---
Pt was picked up by [facility] motorcycle delivery driver to be transported to [facility]. SS referral closed.
== END 2018-11-19 11:24 | DRG 91 ==
LOC: ER 18:01 → ED HOLD 23:46 → EDBEDREQ 11-13 00:26 → CMPBEDREQ 11-13 01:32 → SUR 3N 11-13 01:40
PROVIDERS: ADMIT Internal Medicine; ATTEND Family Medicine
DX: G92 Toxic encephalopathy (principal); N17.0 Acute kidney failure with tubular necrosis; E87.2 Acidosis; M62.82 Rhabdomyolysis; E86.0 Dehydration; F15.10 Other stimulant abuse, uncomplicated; F20.9 Schizophrenia, unspecified
CPT/HCPCS: 36415; 70450; 71045; 80048; 80053; 80178; 80305; 80320; 80329; 81001; 82150; 82330; 82550; 82948; 83605; 83690; 83735; 83930; 84100; 84145; 84443; 85025; 85610; 87040; 87070; 87088; 93005; 96361; 96372; 96374; 97161; 99285; G0378; J0696; J1650; J2060; J7030; J7070

== ENCOUNTER 2018-12-17 19:11 | Emergency (ER) | payer MEDICARE, MEDICAID ==
[~2018-12-17] VITALS: Ht 175.3 cm; Wt 63.6 kg
[~2018-12-17 19:11] MED LIST changes: +PANT40TA4 PO
[2018-12-17 19:30] VITALS: BP 121/85
--- NOTE | 2018-12-17 19:42 | NUR ---
ABRASIONS NOTED ON RIGHT SIDE FACE AND NOSE. OLD BLOODY DRAINAGE. NO NEW DRAINAGE. PT STATES. HE DOES NOT HURT ANYWHERE. ANSWERS QUESTIONS APPROPRIATELY
== END 2018-12-17 20:13 | disposition home or self-care (01) ==
LOC: ER 19:11
DX: S00.81XA Abrasion of other part of head, initial encounter (principal); F15.90 Other stimulant use, unspecified, uncomplicated; W22.8XXA Striking against or struck by other objects, initial encounter; Y93.89 Activity, other specified; Y92.89 Other specified places as the place of occurrence of the external cause; Y99.8 Other external cause status
CPT/HCPCS: 99283

== ENCOUNTER 2019-03-12 09:32 | Emergency (ER) | payer MEDICARE, MEDICAID ==
[~2019-03-12] VITALS: Ht 175.3 cm; Wt 59.1 kg
[2019-03-12 10:42] VITALS: BP 142/98
== END 2019-03-12 10:45 | disposition home or self-care (01) ==
LOC: ER 09:32
DX: M79.671 Pain in right foot (principal); M79.672 Pain in left foot; L98.8 Other specified disorders of the skin and subcutaneous tissue; F17.210 Nicotine dependence, cigarettes, uncomplicated; F15.90 Other stimulant use, unspecified, uncomplicated; Z79.899 Other long term (current) drug therapy; Z59.0 Homelessness
CPT/HCPCS: 99282

== ENCOUNTER 2019-03-13 14:44 | Emergency (ER) | payer MEDICARE, MEDICAID ==
[~2019-03-13] VITALS: Ht 172.7 cm; Wt 65.0 kg
[2019-03-13 14:48] VITALS: BP 116/83
--- NOTE | 2019-03-13 15:45 | NUR ---
Gave pt clean, dry socks from homeless clothing closet.
== END 2019-03-13 16:02 | disposition home or self-care (01) ==
LOC: ER 14:45
DX: S90.424A Blister (nonthermal), right lesser toe(s), initial encounter (principal); S90.822A Blister (nonthermal), left foot, initial encounter; F15.90 Other stimulant use, unspecified, uncomplicated; Z59.0 Homelessness; Z79.899 Other long term (current) drug therapy; X58.XXXA Exposure to other specified factors, initial encounter; Y93.89 Activity, other specified; Y92.89 Other specified places as the place of occurrence of the external cause; Y99.8 Other external cause status
CPT/HCPCS: 99281

== ENCOUNTER 2019-03-14 06:22 | Emergency (ER) | payer MEDICARE, MEDICAID ==
[~2019-03-14] VITALS: Ht 170.2 cm; Wt 65.0 kg
[2019-03-14 06:25] VITALS: BP 107/71
== END 2019-03-14 06:50 | disposition home or self-care (01) ==
LOC: ER 06:22
DX: M79.671 Pain in right foot (principal); M79.672 Pain in left foot; F15.90 Other stimulant use, unspecified, uncomplicated; Z79.899 Other long term (current) drug therapy; Z59.0 Homelessness
CPT/HCPCS: 99281

== ENCOUNTER 2019-03-16 16:19 | Emergency (ER) | payer MEDICARE, OTHER, MEDICAID ==
[~2019-03-16] VITALS: Ht 170.2 cm; Wt 55.0 kg
[2019-03-16 16:38] VITALS: BP 115/72
== END 2019-03-16 17:27 | disposition home or self-care (01) ==
LOC: ER 16:20
DX: M79.671 Pain in right foot (principal); M79.672 Pain in left foot; F15.90 Other stimulant use, unspecified, uncomplicated; Z79.899 Other long term (current) drug therapy; Z59.0 Homelessness
CPT/HCPCS: 99284

== ENCOUNTER 2019-03-23 12:37 | Emergency (ER) | payer MEDICARE, MEDICAID, OTHER ==
[~2019-03-23] VITALS: Ht 172.7 cm; Wt 57.3 kg
[2019-03-23 13:26] VITALS: BP 110/66
== END 2019-03-23 14:54 | disposition home or self-care (01) ==
LOC: ER 12:38
DX: M79.672 Pain in left foot (principal); M79.671 Pain in right foot; F15.90 Other stimulant use, unspecified, uncomplicated; Z98.890 Other specified postprocedural states; Z59.0 Homelessness; Z79.899 Other long term (current) drug therapy
CPT/HCPCS: 99281

== ENCOUNTER 2019-05-29 13:54 | Emergency (ER) | payer MEDICARE, MEDICAID ==
[~2019-05-29] VITALS: Ht 167.6 cm; Wt 52.4 kg
[2019-05-29 15:03] LABS: CLARITY,URINE CLEAR (Clear); COLOR,URINE YELLOW (Yellow); GLUCOSE, URINE NEGATIVE (Neg); KETONES,URINE NEGATIVE (Neg); LEUKOCYTE ESTERASE ,URINE NEGATIVE (Neg); NITRITES, URINE NEGATIVE (Neg); OCCULT BLOOD,URINE SMALL (Neg); PH,URINE 5.5 (4.8-8.0); PROTEIN,URINE NEGATIVE (Neg); UROBILINOGEN,URINE 0.2 E.U/dL (0.2-1.0)
[2019-05-29 15:04] LABS: BASOPHILS % (AUTO) 0.7 % (0-1); EOSINOPHILS # (AUTO) 0.1 X10'3 (0-0.9); EOSINOPHILS % (AUTO) 1.3 % (0-6); HEMATOCRIT 41.8 % (42.0-52.0); HEMOGLOBIN 14.1 g/dl (14.0-17.9); LYMPHOCYTES # (AUTO) 1.4 X10'3 (1.1-4.8); LYMPHOCYTES % (AUTO) 20.6 % (21-51); MEAN CORPUSCULAR HGB CONC 33.8 g/dL (33.0-36.5); MEAN CORPUSCULAR VOLUME 94.6 FL (78-98); MEAN PLATELET VOLUME 6.9 FL (7.4-10.4); MONOCYTES # (AUTO) 0.5 X10'3 (0-0.9); MONOCYTES % (AUTO) 7.3 % (2-12); NEUTROPHILS # (AUTO) 4.8 X10'3 (1.8-7.7); NEUTROPHILS % (AUTO) 70.1 % (42-75); PLATELET COUNT 317 X10'3 (140-440); RED BLOOD COUNT 4.41 X10'6 (4.70-6.10); RED CELL DISTRIBUTION WIDTH 13.3 % (11.5-14.5); WHITE BLOOD COUNT 6.9 X10'3 (4.5-11.0)
[2019-05-29 15:04] LABS: URINE AMPHETAMINE SCREEN POSITIVE (Neg); URINE BARBITUATE SCREEN NEGATIVE (Neg); URINE BENZODIAZEPINES SCREEN NEGATIVE (Neg); URINE CANNABINOID SCREEN NEGATIVE (Neg); URINE COCAINE SCREEN NEGATIVE (Neg); URINE METHADONE SCREEN NEGATIVE (Neg); URINE OPIATE SCREEN NEGATIVE (Neg); URINE PHENCYCLIDINE SCREEN NEGATIVE (Neg)
[2019-05-29 15:11] LABS: UA COLLECTION TYPE CLN CATCH MIDSTREAM
[2019-05-29 15:12] LABS: ALANINE AMINOTRANSFERASE 31 U/L (12-78); ALBUMIN 3.8 G/DL (3.4-5.0); ALBUMIN/GLOBULIN RATIO 1.2 (1.1-1.5); ALKALINE PHOSPHATASE 117 IU/L (46-116); ANION GAP 8 (8-16); ASPARTATE AMINO TRANSFERASE 17 U/L (10-37); BILIRUBIN,TOTAL 0.2 MG/DL (0.1-1.0); BLOOD UREA NITROGEN 13 MG/DL (7-18); BUN/CREATININE RATIO 16.5 (5.4-32.0); CALCIUM 8.9 MG/DL (8.5-10.1); CHLORIDE 107 MMOL/L (99-107); CREATININE 0.79 MG/DL (0.60-1.10); GLUCOSE 67 MG/DL (70-104); POTASSIUM 4.7 MMOL/L (3.5-5.1); SODIUM 143 MMOL/L (135-145); TOTAL CARBON DIOXIDE 27.8 MMOL/L (24-32); eGFR > 90 ML/MIN
[2019-05-29 15:18] LABS: MUCUS STRANDS FEW /LPF (Neg); SQUAMOUS EPITHELIAL CELL,UR FEW /LPF (FEW)
[2019-05-29 15:19] LABS: BACTERIA,URINE FEW /HPF (Neg); RBC,URINE 0-2 /HPF (0-2); WBC,URINE 0-4 /HPF (0-4)
[2019-05-29 15:21] LABS: ETHANOL < 0.010 GM/DL (0.0-0.010)
--- NOTE | 2019-05-29 15:27 | NUR ---
Patient sleeping supine. No distress observed. Continue to monitor.
--- NOTE | 2019-05-29 16:29 | NUR ---
Patient is reclining in bed awake. No distress observed. Continue to monitor.
--- NOTE | 2019-05-29 16:29 | NUR ---
PACKET FAXED [facility]
--- NOTE | 2019-05-29 16:32 | NUR ---
Patient has been on Zyprexa in the past but has not been on medications for a long time. RN called [facility] to see if one of the Doctor's could prescribe medication for patient or okay restarting the Zyprexa. Pending results. Continue to monitor.
--- NOTE | 2019-05-29 18:39 | NUR ---
Patient eating dinner. No distress observed. Continue to monitor.
--- NOTE | 2019-05-29 20:05 | NUR ---
Patient sleeping on left side. Patient easily awakens to voice. RN gave patient medication. No distress observed. Continue to monitor.
[2019-05-29] MEDS ORDERED: OLANZapine 5mg rapidly disint. tablet PO SCH (21:00)
--- NOTE | 2019-05-29 22:17 | NUR ---
Patient sleeping on his right side. No distress observed. Continue to monitor.
--- NOTE | 2019-05-29 23:35 | NUR ---
Patient sleeping on right side. No distress observed. Continue to monitor.
--- NOTE | 2019-05-30 | NUR ---
Received report from Ana Rosa MEJIA, patient resting comfortably at this time
--- NOTE | 2019-05-30 01:07 | NUR ---
Patient sleeping prone, no signs of distress
--- NOTE | 2019-05-30 02:03 | NUR ---
Patient sleeping on left side, no distress
--- NOTE | 2019-05-30 02:36 | NUR ---
Breaking primary RN, pt is laying on his left side, eyes closed, appears to be asleep, no s/s of distress observed, hob raised, will continue to monitor
--- NOTE | 2019-05-30 03:09 | NUR ---
Patient sleeping on right side, no distress
--- NOTE | 2019-05-30 04:01 | NUR ---
Patient sleeping on right side, no distress
--- NOTE | 2019-05-30 05:04 | NUR ---
Patient resting comfortably on left side, no distress
[2019-05-30 05:44] VITALS: BP 109/57
--- NOTE | 2019-05-30 06:30 | NUR ---
PT RESTING, EYES CLOSED RR EQUAL AND UNLABORED
--- NOTE | 2019-05-30 07:29 | NUR ---
PT RESTING ON LEFT SIDE. RR EQUAL AND UNLABORED
[2019-05-30] MEDS ORDERED: pantoprazole 40mg Tablet.DR PO SCH (07:30)
[2019-05-30] MEDS ORDERED: multivitamins, therapeutics tablet PO SCH (08:00)
--- NOTE | 2019-05-30 12:32 | NUR ---
Notified pt has been accepted at [facility]. Awaiting paperwork and then will get dc and transfer pt.
--- NOTE | 2019-05-30 15:25 | NUR ---
Pt refused to sign departure papers.
[2019-05-30] MEDS ORDERED: OLAN10TA19 PO (15:57)
== END 2019-05-30 15:29 ==
LOC: ER 13:55
DX: F23 Brief psychotic disorder (principal); F15.90 Other stimulant use, unspecified, uncomplicated; Z59.0 Homelessness; Z79.899 Other long term (current) drug therapy
CPT/HCPCS: 36415; 80053; 80305; 80320; 81001; 82140; 84443; 85025; 99285

== ENCOUNTER 2019-05-30 13:03 | Inpatient (IN) | payer MEDICARE, MEDICAID ==
[~2019-05-30] VITALS: Ht 167.6 cm; Wt 65.0 kg
[2019-05-30] MEDS ORDERED: loperamide 2mg capsule PO PRN (15:35)
[2019-05-30] MEDS ORDERED: LORazepam 1 MG tablet PO PRN (15:35)
[2019-05-30] MEDS ORDERED: acetaminophen 325mg tablet PO PRN ×2 (15:35)
[2019-05-30] MEDS ORDERED: tuberculin, purif. prot. deriv. 5 units/0.1ml ID ONE (15:35)
[2019-05-30] MEDS ORDERED: hydrOXYzine 25 MG tablet PO PRN (15:35)
[2019-05-30] MEDS ORDERED: mag hydrox/Alum hydrox/simeth 30ml oral suspension PO PRN (15:35)
[2019-05-30] MEDS ORDERED: OLAN10TA19 PO (15:57)
--- NOTE | 2019-05-30 15:57 | NUR ---
Admission note: Pt admitted to [facility] on 5150 for DTS/GD. Pt arrives at 1525 via wheelchair, [place]. Pt was diagnosed with schizophrenia. Pt can not formulate a plan for food, long term, or clothes. Pt will walk around the block for hours at a time and stair into the distance and is extremely skinny. Pt had $130 on him but was eating spoiled food out of the garbage can because he believes he cant go into a store to buy food. Pt is somewhat cooperative with admission. Pt refuses to sign anything. Pt has history of schizophrenia.
[2019-05-30 16:59] VITALS: BP 108/72
[2019-05-30] MEDS: OLANZAPINE 5 MG TABLET PO SCH (20:25)
[2019-05-30] MEDS ORDERED: OLANZAPINE 5 MG TABLET PO SCH (21:00)
--- NOTE | 2019-05-30 22:19 | NUR ---
Pt refused vitals and assessment. Addendum: 05/30/19 at 2220 by Raina Singh RN Amended: Links added.
--- NOTE | 2019-05-31 01:46 | NUR ---
NURSING PROGRESS NOTE: Legal hold: 5150 Exp 06/02 @ 1525 Client on involuntary status for GD. Report received from JACKIE De La Paz with use of SBAR. Why are they here: Pt is diagnosed with schizophrenia. [facility] is unable to formulate a plan for food, nursing home or clothes. Pt will walk around the block for hours at at time and stare off into the distance. Pt had $130 in his pocket, but was found eating spoiled food from dumpster. Assessment What has happened this shift: Pt was sleeping in his room at shift change, no acute distress noted. Due to unpredictability of pt, this handbook writer had PCT Shashank SBA during HS med pass. Pt was difficult to wake up due to he was ignoring this handbook writer. Pt's foot was touched with a pen, pt then began to move. When asked if would take HS med, pt bolted up out of bed, wide-eyed and fists clenched. PCT Shashank immediately intervened. Pt did take his Zyprexa without incident. Pt refused all other communication and assessments. Pt was asked if he wanted a snack and he pointed towards the group room where snack was going on. Pt took a carton a milk and crackers, prior to sitting down he squeezed the carton, then proceeded to get up and go back to bed. Pt has been sleeping since, no distress noted. S/I, H/I: Pt refused to answer A/VH: Pt refused to answer Sleep: See sleep assessment notation. 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 Eye contact: Direct Behavior: Fatigued, impulsive, abrupt Speech: Pt didn't speak Mood: Disoriented Affect: Congruent to mood Thought process: Unable to assess Thought Content: Unable to assess Cognition: Catatonic Insight: Poor Judgment: Poor Interventions PRN's used: None Therapeutic interventions: Provided a safe therapeutic environment, medication administration/education/monitoring; therapeutic milieu and group therapy, reorient to reality; Maintained Q 15 safety checks. Pt refused assessment and any other intervention. Restraints/seclusion/emergency medication: N/A Justification of Continued Inpatient Treatment: Pt needs medication adjustment and monitoring in a safe therapeutic environment until stable. Pt. unable to formulate a viable plan for food, nursing home and clothing.
[2019-05-31 06:59] LABS: CHOLESTEROL 125 MG/DL (0-200); HDL CHOLESTEROL 42 MG/DL (35-60); LDL CHOLESTEROL 74 MG/DL (50-100); TRIGLYCERIDES 61 MG/DL (20-135)
[2019-05-31] MEDS: multivitamins, therapeutics tablet PO SCH (08:26)
[2019-05-31] MEDS: vitamin D (cholecalciferol) 1,000 unit tablet PO SCH (08:26)
[2019-05-31] MEDS: omega-3 acid ethyl esters 1GM capsule PO SCH (08:26)
[2019-05-31 08:51] VITALS: BP 114/73
--- NOTE | 2019-05-31 12:39 | NUR ---
Malnutrition consult: previous weight history difficult to assess d/t inconsistent heights and patient stated weights. Appetite is great, eating 75-100% of meals. Normal muscle strength. Pt confused per physical assessment. No edema. BMI is on the lower end of normal. At this time patient does not meet more than two criteria for malnutrition at this time. Addendum: 05/31/19 at [address] Amended: Links added.
--- NOTE | 2019-05-31 15:55 | NUR ---
NURSING PROGRESS NOTE: [facility] Legal hold: 5150 Exp 06/02 @ 1525 Client on involuntary status for GD. Report received from JACKIE Rodriguez with use of SBAR. Why are they here: Pt is diagnosed with schizophrenia. [facility] is unable to formulate a plan for food, detention or clothes. Pt will walk around the block for hours at at time and stare off into the distance. Pt had $130 in his pocket, but was found eating spoiled food from dumpster. Assessment What has happened this shift: Pt was sleeping in his room at shift change, no acute distress noted. Entered room for med pass and had to wake up patient. Pt. Sat up abruptly, but did not show any signs of aggression. Patient would not answer questions, just stared off, not making eye contact. Ambulated to community room for breakfast, and immediately returned to bed. Patient requested a second meal tray. When asked if he was hungry, he shook his head yes. After eating additional food, he layed down and remained in room. PCP attempted to speak with patient, patient did not respond acting as if he was asleep. Shortly after this advertising copy writer entered room to speak with other patient and he began to mimic sounds (laughter). PCP was notified. Remains on his bed into late afternoon. S/I, H/I: Pt refused to answer A/VH: Pt refused to answer Sleep: 8.75 ADL's: up only for meals, no ADLs completed Group attendance: NO Were meds taken: Medication compliant Any med S/E: None reported or observed Mental Status Exam Appearance: Disheveled, dressed in green scrubs. Eye contact: poor Behavior: isolating, paranoid Speech: minimal, Mood: Disoriented Affect: Congruent to mood Thought process: Unable to assess Thought Content: Unable to assess Cognition: Oriented to person Insight: Poor Judgment: Poor Interventions PRN's used: None Therapeutic interventions: Provided a safe therapeutic environment, medication administration/education/monitoring; therapeutic milieu and group therapy, reorient to reality; Maintained Q 15 safety checks. Pt refused assessment and any other intervention. Restraints/seclusion/emergency medication: N/A Justification of Continued Inpatient Treatment: Pt needs medication adjustment and monitoring in a safe therapeutic environment until stable. Pt. unable to formulate a viable plan for food, detention and clothing.
--- NOTE | 2019-05-31 19:00 | NUR ---
Pt refused assessment Addendum: 05/31/19 at 2222 by Raina Singh RN Amended: Links added.
[2019-05-31 19:27] VITALS: BP 119/85
[2019-05-31] MEDS: OLANZAPINE 5 MG TABLET PO SCH (20:47)
--- NOTE | 2019-06-01 00:29 | NUR ---
NURSING PROGRESS NOTE: Legal hold: 5150 Exp 06/02 @ 1525 Client on involuntary status for GD. Report received from JACKIE De La Paz with use of SBAR. Why are they here: Pt is diagnosed with schizophrenia. [facility] is unable to formulate a plan for food, jail or clothes. Pt will walk around the block for hours at at time and stare off into the distance. Pt had $130 in his pocket, but was found eating spoiled food from dumpster. Assessment What has happened this shift: Pt was sleeping in his room at shift change, no acute distress noted. Pt was awoken to give HS meds. Had to repeat pt's name seveal times before pt would respond to this auto service writer. Pt did abruptly jump out of bed, but made no aggressive movements. Pt took medications, but refused assessment and to answer any questions. Pt shook his head "No" when asked. After med administration, pt stood by his bed for several minutes staring off into the distance, then pulled the bedding off his bed and laid back down. Pt continues to sleep at this time. S/I, H/I: Pt refused to answer A/VH: Pt refused to answer Sleep: See sleep assessment notation. 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 Eye contact: Poor Behavior: Isolating, fatigued, paranoid Speech: Pt didn't speak- just shook head Mood: Disoriented Affect: Catatonic Thought process: Unable to assess Thought Content: Unable to assess Cognition: Oriented to person Insight: Poor Judgment: Poor Interventions PRN's used: None Therapeutic interventions: Provided a safe therapeutic environment, medication administration/education/monitoring; therapeutic milieu and group therapy, reorient to reality; Maintained Q 15 safety checks. Pt refused assessment and any other intervention. Restraints/seclusion/emergency medication: N/A Justification of Continued Inpatient Treatment: Pt needs medication adjustment and monitoring in a safe therapeutic environment until stable. Pt. unable to formulate a viable plan for food, jail and clothing.
[2019-06-01] MEDS: omega-3 acid ethyl esters 1GM capsule PO SCH (08:12)
[2019-06-01] MEDS: multivitamins, therapeutics tablet PO SCH (08:12)
[2019-06-01] MEDS: vitamin D (cholecalciferol) 1,000 unit tablet PO SCH (08:12)
[2019-06-01 08:28] VITALS: BP 120/73
--- NOTE | 2019-06-01 15:53 | NUR ---
NURSING PROGRESS NOTE: [facility] Legal hold: 5150 Exp 06/02 @ 1525 Client on involuntary status for GD. Report received from JACKIE Rodriguez with use of SBAR. Why are they here: Pt is diagnosed with schizophrenia. [facility] is unable to formulate a plan for food, long-term or clothes. Pt will walk around the block for hours at at time and stare off into the distance. Pt had $130 in his pocket, but was found eating spoiled food from dumpster. Assessment What has happened this shift: Patient asleep at change of shift and up for breakfast. Patient took his medication at breakfast without any problems but did not make eye contact nor did her answer back to the RN. Patient ate all his food and after breakfast patient told RN that he was still hungry. RN gave patient a muffin and a banana and patient took them and threw them in the trash. RN walked down the chowdhury and RN heard a loud thump in his room as patient pushed his tray against the wall. Patient does not allow assessment and pretends like he can't hear. RN can observe and document. Patient is not interactive and isolates. S/I, H/I: Pt refused to answer A/VH: Pt refused to answer Sleep: 8.75 ADL's: up only for meals, no ADLs completed Group attendance: NO Were meds taken: Medication compliant Any med S/E: None reported or observed Mental Status Exam Appearance: Disheveled, dressed in green scrubs. Eye contact: poor Behavior: isolating, paranoid Speech: minimal, Mood: Disoriented Affect: Congruent to mood Thought process: Unable to assess Thought Content: Unable to assess Cognition: Oriented to person Insight: Poor Judgment: Poor Interventions PRN's used: None Therapeutic interventions: Provided a safe therapeutic environment, medication administration/education/monitoring; therapeutic milieu and group therapy, reorient to reality; Maintained Q 15 safety checks. Pt refused assessment and any other intervention. Restraints/seclusion/emergency medication: N/A Justification of Continued Inpatient Treatment: Pt needs medication adjustment and monitoring in a safe therapeutic environment until stable. Pt. unable to formulate a viable plan for food, long-term and clothing. Addendum: 06/01/19 at 1612 by Ana Rosa Snow RN ROBEL
--- NOTE | 2019-06-01 16:01 | NUR ---
NURSING PROGRESS NOTE: [facility] Legal hold: 5150 Exp 06/02 @ 1525 Client on involuntary status for GD. Report received from Vannesa Griffin RN with use of SBAR. Why are they here: Pt is diagnosed with schizophrenia. [facility] is unable to formulate a plan for food, fci or clothes. Pt will walk around the block for hours at at time and stare off into the distance. Pt had $130 in his pocket, but was found eating spoiled food from dumpster. Assessment What has happened this shift: Patient asleep at change of shift and up for breakfast. Patient took his medication at breakfast without any problems but did not make eye contact nor did her answer back to the RN. Patient ate all his food and after breakfast patient told RN that he was still hungry. RN gave patient a muffin and a banana and patient took them and threw them in the trash. RN walked down the chowdhury and RN heard a loud thump in his room as patient pushed his tray against the wall. Patient does not allow assessment and pretends like he can't hear. RN can observe and document. Patient is not interactive and isolates. S/I, H/I: Pt refused to answer A/VH: Pt refused to answer Sleep: patient slept unless food was being served. ADL's: up only for meals, Patient took shower but I don't believe he used soap. Group attendance: NO Were meds taken: Medication compliant Any med S/E: None reported or observed Mental Status Exam Appearance: dressed in green scrubs. Eye contact: poor Behavior: isolating, paranoid Speech: minimal, Mood: angry Affect: Congruent to mood Thought process: Unable to assess Thought Content: Unable to assess Cognition: Oriented to person Insight: Poor Judgment: Poor Interventions PRN's used: None Therapeutic interventions: Provided a safe therapeutic environment, medication administration/education/monitoring; therapeutic milieu and group therapy, reorient to reality; Maintained Q 15 safety checks. Pt refused assessment and any other intervention. Restraints/seclusion/emergency medication: N/A Justification of Continued Inpatient Treatment: Pt needs medication adjustment and monitoring in a safe therapeutic environment until stable. Pt. unable to formulate a viable plan for food, fci and clothing.
[2019-06-01 19:50] VITALS: BP 130/73
[2019-06-01] MEDS: OLANZAPINE 5 MG TABLET PO SCH (21:16)
--- NOTE | 2019-06-01 23:35 | NUR ---
NURSING PROGRESS NOTE: Legal hold: 5150 Exp 06/02 @ 1525 Client on involuntary status for GD. Report received from JACKIE De La Paz with use of SBAR. Why are they here: Pt is diagnosed with schizophrenia. Pt is unable to formulate a plan for food, senior care or clothes. Pt will walk around the block for hours at at time and stare off into the distance. Pt had $130 in his pocket, but was found eating spoiled food from dumpster. Assessment What has happened this shift: Pt sleeping in his room at shift change. Pt ignores RN when she addressees him by name. It appears the pt is awake because he begins to shake his right foot. Pt refuses physical assessment. Pt gets out of bed when he is told it is time for his medications. Pt is hypervigilant about his surroundings when he is awake, he stands next to his bed and rocks and darts his eyes around the room. Pt takes med with no issues. Pt pushes and empty milk carton and sandwich bag to RN, when asked if he wants something to eat pt. shakes his head yes. Pt makes no eye contact and eats his snack. When pt is down he throws himself back on his bed and pulls covers over his face. Pt's movements continue to abrupt. S/I, H/I: Pt refused to answer A/VH: Pt refused to answer Sleep: See sleep assessment notation. ADL's: Pt up only to eat snack and use the restroom. 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 Eye contact: Poor Behavior: Isolating, fatigued, paranoid Speech: Pt doesn't speak- just nods head Mood: Disoriented Affect: Congruent to mood Thought process: Unable to assess Thought Content: Unable to assess Cognition: Oriented to person Insight: Poor Judgment: Poor Interventions PRN's used: None Therapeutic interventions: Provided a safe therapeutic environment, medication administration/education/monitoring; therapeutic milieu and group therapy, reorient to reality; Maintained Q 15 safety checks. Pt refused assessment and any other intervention. Restraints/seclusion/emergency medication: N/A Justification of Continued Inpatient Treatment: Pt needs medication adjustment and monitoring in a safe therapeutic environment until stable. Pt. unable to formulate a viable plan for food, senior care and clothing.
[2019-06-02 07:42] VITALS: BP 112/83
[2019-06-02] MEDS: omega-3 acid ethyl esters 1GM capsule PO SCH (09:04)
[2019-06-02] MEDS: multivitamins, therapeutics tablet PO SCH (09:04)
[2019-06-02] MEDS: vitamin D (cholecalciferol) 1,000 unit tablet PO SCH (09:04)
--- NOTE | 2019-06-02 14:47 | NUR ---
NURSING PROGRESS NOTE: Legal hold: 5150 Client on involuntary status for GD. Report received from JACKIE Murcia with use of SBAR. Why are they here: Pt is diagnosed with schizophrenia. [facility] is unable to formulate a plan for food, group home or clothes. Pt will walk around the block for hours at at time and stare off into the distance. Pt had $130 in his pocket, but was found eating spoiled food from dumpster. Assessment What has happened this shift: Patient awakened for breakfast and medications. Patient is medication compliant, but refuses to talk to RN. S/I, H/I: Pt refused to answer A/VH: Pt refused to answer Sleep: patient slept unless food was being served. ADL's: Eats independently. Group attendance: NO Were meds taken: Medication compliant Any med S/E: None reported or observed Mental Status Exam Appearance: dressed in green scrubs. Eye contact: poor Behavior: isolating, paranoid Speech: None. Mood: Paranoid. Affect: Blunted. Thought process: Unable to assess Thought Content: Unable to assess Cognition: Oriented to person Insight: Impaired. Judgment: Impaired. Interventions PRN's used: None Therapeutic interventions: Provided a safe therapeutic environment, medication administration/education/monitoring; therapeutic milieu and group therapy, reorient to reality. Clear and simple instructions. Maintained Q 15 safety checks. Pt refused assessment and any other intervention. Restraints/seclusion/emergency medication: N/A Justification of Continued Inpatient Treatment: Pt needs medication adjustment and monitoring in a safe therapeutic environment until stable. Pt. unable to formulate a viable plan for food, group home and clothing.
[2019-06-02 19:58] VITALS: BP 124/79
[2019-06-02] MEDS: OLANZAPINE 5 MG TABLET PO SCH (20:57)
--- NOTE | 2019-06-02 23:28 | NUR ---
NURSING PROGRESS NOTE: Legal hold: 5250 Exp 06/16 @ 1525 Client on involuntary status for GD. Report received from JACKIE De La Paz with use of SBAR. Why are they here: Pt is diagnosed with schizophrenia. Pt is unable to formulate a plan for food, [place] [facility] or clothes. Pt will walk around the block for hours at at time and stare off into the distance. Pt had $130 in his pocket, but was found eating spoiled food from dumpster. Assessment What has happened this shift: Pt sleeping in room at shift change. Pt continues not to communicate with voice, but will nod in response to question. Pt was compliant with vitals and med pass, but refused assessment. Pt gets up out of bed for med pass and his movements show less agitation. Pt took HS meds then went directly back to bed. Pt will take a snack most of the time when asked. S/I, H/I: Pt refused to answer A/VH: Pt refused to answer Sleep: See sleep assessment notation. ADL's: Pt up only to eat snack and use the restroom. Group attendance: shiftman, no group Were meds taken: Medication compliant Any med S/E: None reported or observed Mental Status Exam Appearance: Disheveled, dressed in green scrubs. Eye contact: Poor Behavior: Isolating, fatigued, paranoid Speech: Pt doesn't speak- just nods head Mood: Disoriented Affect: Congruent to mood Thought process: Unable to assess Thought Content: Unable to assess Cognition: Oriented to person Insight: Poor Judgment: Poor Interventions PRN's used: None Therapeutic interventions: Provided a safe therapeutic environment, medication administration/education/monitoring; therapeutic milieu and group therapy, reorient to reality; Maintained Q 15 safety checks. Pt refused assessment and any other intervention. Restraints/seclusion/emergency medication: N/A Justification of Continued Inpatient Treatment: Pt needs medication adjustment and monitoring in a safe therapeutic environment until stable. Pt. unable to formulate a viable plan for food, [place] [facility] and clothing. Addendum: 08/26/19 at 0351 by Raina Singh RN Pt's 5250 was upheld today. requesting to [facility] and [employer] to consider pt for conservatorship.
[2019-06-03 08:00] VITALS: BP 126/84
[2019-06-03] MEDS: vitamin D (cholecalciferol) 1,000 unit tablet PO SCH (09:06)
[2019-06-03] MEDS: omega-3 acid ethyl esters 1GM capsule PO SCH (09:06)
[2019-06-03] MEDS: multivitamins, therapeutics tablet PO SCH (09:06)
--- NOTE | 2019-06-03 17:54 | NUR ---
NURSING PROGRESS NOTE: Legal hold: 5250 Exp 06/16 @ 1525 Client on involuntary status for GD. Report received from JACKIE De La Paz with use of SBAR. Why are they here: Pt is diagnosed with schizophrenia. Pt is unable to formulate a plan for food, care home or clothes. Pt will walk around the block for hours at at time and stare off into the distance. Pt had $130 in his pocket, but was found eating spoiled food from dumpster. Assessment What has happened this shift: Patient is observed sleeping at change of shift. This RN wakes him by calling out his name. He quickly jumps out of bed, standing next to it and shuffling from one foot to the next. He does not make eye contact and does not speak. He will sometimes nod his head yes or no. RN explains each medication to patient and patient nods in agreeance to take them. He takes his meds without any issue. Patient attends all meals and then returns to his room to sleep. He does not disagree with continuance of his hold and returns to his bed rather than not go to court. S/I, H/I: Pt does not answer questions A/VH: Pt does not answer questions Sleep: 6hrs NOC and rested during the day ADL's: Pt up only to eat and use the restroom. Group attendance: no Were meds taken: yes Any med S/E: None reported or observed Mental Status Exam Appearance: Disheveled, dressed in green scrubs. Eye contact: Poor Behavior: Isolating, fatigued, paranoid Speech: Pt doesn't speak- just nods head Mood: unable to formally assess Affect: flat Thought process: Unable to assess Thought Content: Unable to assess Cognition: Oriented to person Insight: Poor Judgment: Poor Interventions PRN's used: None Therapeutic interventions: Therapeutic interventions: Continued therapeutic support and medication management needed to provide stabilization, prevent decompensation, improve coping mechanisms decreasing risk to patient and re-admittance. Restraints/seclusion/emergency medication: N/A Justification of Continued Inpatient Treatment: Pt. unable to formulate a viable plan for food, care home and clothing.Continued therapeutic support and medication management needed to provide stabilization, prevent decompensation, improve coping mechanisms decreasing risk to patient and re-admittance.
[2019-06-03 20:23] VITALS: BP 116/79
[2019-06-03] MEDS: OLANZAPINE 5 MG TABLET PO SCH (20:38)
--- NOTE | 2019-06-03 23:00 | NUR ---
NURSING PROGRESS NOTE: Legal hold: 5250 Exp 06/16 @ 1525 Client on involuntary status for GD. Report received from JACKIE De La Paz with use of SBAR. Why are they here: Pt is diagnosed with schizophrenia. Pt is unable to formulate a plan for food, [facility] or clothes. Pt will walk around the block for hours at at time and stare off into the distance. Pt had $130 in his pocket, but was found eating spoiled food from dumpster. Assessment What has happened this shift: Patient is observed sleeping at change of shift. This RN wakes him by calling out his name. He quickly jumps out of bed, standing next to it and shuffling from one foot to the next. He does not make eye contact and does not speak. Pt. did not answer any questions when asked. RN explains each medication to patient and patient nods in agreement to take them. He takes his meds without any issue. Pt. had a snack in therapy room but did not interact with anyone. Patient attends all meals and then returns to his room to sleep. He does not disagree with continuance of his hold and returns to his bed rather than not go to court. S/I, H/I: Pt does not answer questions A/VH: Pt does not answer questions Sleep: 6hrs NOC and rested during the day ADL's: Pt up only to eat and use the restroom. Group attendance: no Were meds taken: yes Any med S/E: None reported or observed Mental Status Exam Appearance: Disheveled, dressed in green scrubs. Eye contact: Poor Behavior: Isolating, fatigued, paranoid Speech: Pt doesn't speak- just nods head Mood: unable to formally assess Affect: flat Thought process: Unable to assess Thought Content: Unable to assess Cognition: Oriented to person Insight: Poor Judgment: Poor Interventions PRN's used: None Therapeutic interventions: Therapeutic interventions: Continued therapeutic support and medication management needed to provide stabilization, prevent decompensation, improve coping mechanisms decreasing risk to patient and re-admittance. Restraints/seclusion/emergency medication: N/A Justification of Continued Inpatient Treatment: Pt. unable to formulate a viable plan for food, [facility] and clothing.Continued therapeutic support and medication management needed to provide stabilization, prevent decompensation, improve coping mechanisms decreasing risk to patient and re-admittance.
[2019-06-04 07:34] VITALS: BP 108/70
[2019-06-04] MEDS: omega-3 acid ethyl esters 1GM capsule PO SCH (08:21)
[2019-06-04] MEDS: multivitamins, therapeutics tablet PO SCH (08:21)
[2019-06-04] MEDS: vitamin D (cholecalciferol) 1,000 unit tablet PO SCH (08:21)
--- NOTE | 2019-06-04 11:41 | NUR ---
Initial: Patient is eating well, per MD note patient eating voraciously and appears emaciated from previously not eating well. Patient is now able to meet nutrition needs in behavioral health unit. Pt also receiving vitamin D, MVI, and omega 3 fatty acids. No documented BM since admission five days ago. Per physical assessment patient does not answer any questions, is non verbal, will refuse some assessments. patient is able to feed himself, will eat and sleep per MD note. Pt able to meet nutrition needs for repletion on current diet. Recommend: 1. Continue regular diet 2. Monitor need for bowel care 3. Encourage PO intake 4. Weekly weights Addendum: 06/04/19 at [address] Amended: Links added.
--- NOTE | 2019-06-04 16:27 | NUR ---
NURSING PROGRESS NOTE: Legal hold: 5250 Exp 06/16 @ 1525 Client on involuntary status for GD. Report received from JACKIE Wong with use of SBAR. Why are they here: Pt is diagnosed with schizophrenia. Pt is unable to formulate a plan for food, jail or clothes. Pt will walk around the block for hours at at time and stare off into the distance. Pt had $130 in his pocket, but was found eating spoiled food from dumpster. Assessment What has happened this shift: Patient is observed sleeping at change of shift. He is awoken to talk with staff and immediately jumps out of bed, stands next to it, shuffling from one foot to the next. He continues to not speak only nods his head yes or no. He nods yes when asked if he slept well the night before. He nods yes to take his meds and takes them without any issue. When asked if there was anything he needed he pointed to the food cart. Patient attends all meals and then returns to his room to sleep. He still appears paranoid as when entering his space he moves away. He does not want anyone in his personal space and does not want to be touched. RN observed tongue rolling. S/I, H/I: Pt does not answer questions A/VH: Pt does not answer questions Sleep: 7.75hrs NOC and rested during the day ADL's: Pt up only to eat and use the restroom. Group attendance: no Were meds taken: yes Any med S/E: ?tongue rolling Mental Status Exam Appearance: Disheveled, dressed in green scrubs. Eye contact: Poor Behavior: Isolating, fatigued, paranoid, hungry Speech: Pt doesn't speak- just nods head Mood: unable to formally assess Affect: flat Thought process: Unable to assess Thought Content: Unable to assess Cognition: Oriented to person Insight: Poor Judgment: Poor Interventions PRN's used: None Therapeutic interventions: Therapeutic interventions: Continued therapeutic support and medication management needed to provide stabilization, prevent decompensation, improve coping mechanisms decreasing risk to patient and re-admittance. Restraints/seclusion/emergency medication: N/A Justification of Continued Inpatient Treatment: Pt. unable to formulate a viable plan for food, jail and clothing.Continued therapeutic support and medication management needed to provide stabilization, prevent decompensation, improve coping mechanisms decreasing risk to patient and re-admittance.
[2019-06-04] MEDS: OLANZAPINE 5 MG TABLET PO SCH (20:14)
[2019-06-04] MEDS: PALIPERIDONE 3 MG TAB.ER.24 PO SCH (20:14)
--- NOTE | 2019-06-04 23:33 | NUR ---
Nursing Progress Note: The patient has been isolating to his bed. He was only up briefly once for a snack and then went right back to bed. One to one with the patient to assess severity of psychiatric symptoms. When approached for the evening assessment he jumped up and stood by the side of his bed but gave no eye contact. He was non verbal but he did nod or shake his bed when asked simple questions. He refused vital signs or a physical assessment. He did not appear to be in physical distress. He indicated that he was not having any pain. He denied that he was hearing voices, having thoughts to harm himself and others. His affect was flat and he appeared very disheveled and his hair is sticking up all over. He stood by his bed and rocked back and forth from side to side somewhat nervously when been asked questions. He has a good appetite and ate two sandwiches at snack time. He is not socializing with others. He is not communicating his needs. He is not attending to his personal hygiene. His personal space in his room is in disarray. He has no disruptive behaviors. He is not socializing with staff or peers. He made no phone calls and he has not received and visitors this shift. Continues to present as very gravely disabled. He did willing take his evening medications. The patient requires further psychiatric stabilization and is not able to demonstrate that he can provide for his self care if he were leave the safety and structure of the psychiatric unit.
[2019-06-05] MEDS: multivitamins, therapeutics tablet PO SCH (07:35)
[2019-06-05] MEDS: vitamin D (cholecalciferol) 1,000 unit tablet PO SCH (07:35)
[2019-06-05] MEDS: omega-3 acid ethyl esters 1GM capsule PO SCH (07:35)
[2019-06-05 07:56] VITALS: BP 130/81
--- NOTE | 2019-06-05 17:08 | NUR ---
NURSING PROGRESS NOTE: Legal hold: 5250 Exp 06/16 @ 1525 Client on involuntary status for GD. Report received from JACKIE Wong with use of SBAR. Why are they here: Pt is diagnosed with schizophrenia. Pt is unable to formulate a plan for food, skilled nursing or clothes. Pt will walk around the block for hours at at time and stare off into the distance. Pt had $130 in his pocket, but was found eating spoiled food from dumpster. Assessment What has happened this shift: Patient is observed waiting at his door. He does not tell this RN what he is waiting for or if he needs anything. He is not talking this morning nor nodding his head. He takes his medication without issue and attends all meals. RN provided patient with extra snack. Towards the end of the day patient hands RN an empty tube of toothpaste and says Can I have some more please. He does not wish to say anything more than that. When asked if he needed anything else he nodds his head no. Patient did have a BM today. S/I, H/I: Pt does not answer questions A/VH: Pt does not answer questions Sleep: 10hrs NOC and rested during the day ADL's: Pt up only to eat and use the restroom. Group attendance: no Were meds taken: yes Any med S/E: ?tongue rolling Mental Status Exam Appearance: Disheveled, dressed in green scrubs. Eye contact: Poor, made direct eye contact a couple times today Behavior: Isolating, fatigued, paranoid, hungry Speech: soft tone, poverty of speech Mood: unable to formally assess Affect: flat Thought process: Unable to assess Thought Content: Unable to assess Cognition: Oriented to person Insight: Poor Judgment: Poor Interventions PRN's used: None Therapeutic interventions: Therapeutic interventions: Continued therapeutic support and medication management needed to provide stabilization, prevent decompensation, improve coping mechanisms decreasing risk to patient and re-admittance. Restraints/seclusion/emergency medication: N/A Justification of Continued Inpatient Treatment: Pt. unable to formulate a viable plan for food, skilled nursing and clothing.Continued therapeutic support and medication management needed to provide stabilization, prevent decompensation, improve coping mechanisms decreasing risk to patient and re-admittance.
[2019-06-05] MEDS: PALIPERIDONE 3 MG TAB.ER.24 PO SCH (20:11)
[2019-06-05] MEDS: OLANZAPINE 5 MG TABLET PO SCH (20:11)
--- NOTE | 2019-06-05 22:26 | NUR ---
Nursing Progress Note: The patient has been isolating in her bed for the majority of the evening. He was up briefly for the evening snack. Attempted one to one with the patient and he continued to lay on the bed not moving with his eyes closed not answering or responding in any way but then suddenly jumped out of bed and stood restlessly at the side of the bed. He gave no eye contact. He did answer a few questions by nodding or shaking his head. He did indicate that he was hungry and he was given a sandwich. He also indicated that he was not hearing voices but it was impossible to fully evaluate him for the severity of psychiatric symptoms because he has been for the most part nonverbal. After a brief period of time he terminated the assessment by suddenly jumping back on his bed and closing his eyes. He would not respond further except to make some high pitched noises that could not be identified as actual words. He appears disheveled and his hair was sticking up all over. His affect was flat. He continues unable to demonstrate that he could sustain himself in the community and provide for his food, long-term or clothing. He is medication compliant. He has not had any disruptive behaviors. Staff are attempting to periodically engage with him to build rapport.
[2019-06-06] MEDS: multivitamins, therapeutics tablet PO SCH (07:29)
[2019-06-06] MEDS: omega-3 acid ethyl esters 1GM capsule PO SCH (07:30)
[2019-06-06] MEDS: vitamin D (cholecalciferol) 1,000 unit tablet PO SCH (07:30)
[2019-06-06 07:39] VITALS: BP 108/68
--- NOTE | 2019-06-06 15:53 | NUR ---
NURSING PROGRESS NOTE: Legal hold: 5250 Exp 06/16 @ 1525 Client on involuntary status for GD. Report received from JACKIE Glez with use of SBAR. Why are they here: Pt is diagnosed with schizophrenia. Pt is unable to formulate a plan for food, [facility] or clothes. Pt will walk around the block for hours at at time and stare off into the distance. Pt had $130 in his pocket, but was found eating spoiled food from dumpster. Assessment What has happened this shift: The patient was asleep at change of shift. He was awakened for breakfast and meds which he ate and took his medications and then promptly went back to bed. When asked, the patient would answer simple questions by nodding his head yes or no. He would not answer any questions in regard to hallucinations. He is calm and polite. It was suggested he get up and take a shower in the early afternoon which he did without hesitation. He did not verbally speak to this nurse today. He is medication compliant. S/I, H/I: Pt does not answer these questions A/VH: Pt does not answer questions Sleep: Naps throughout day ADL's: Took a shower Group attendance: no Were meds taken: yes Any med S/E: None observed Mental Status Exam Appearance: Disheveled, dressed in green scrubs. Eye contact: Poor Behavior: Isolating Speech: did not speak Mood: depressed Affect: flat Thought process: Unable to assess Thought Content: Unable to assess Cognition: Oriented to person Insight: Poor Judgment: Poor Interventions PRN's used: None Therapeutic interventions: Therapeutic interventions: Continued therapeutic support and medication management needed to provide stabilization, prevent decompensation, improve coping mechanisms decreasing risk to patient and re-admittance. Restraints/seclusion/emergency medication: N/A Justification of Continued Inpatient Treatment: Pt. unable to formulate a viable plan for food, usp and clothing.Continued therapeutic support and medication management needed to provide stabilization, prevent decompensation, improve coping mechanisms decreasing risk to patient and re-admittance.
[2019-06-06] MEDS: OLANZAPINE 5 MG TABLET PO SCH (20:54)
[2019-06-06] MEDS: PALIPERIDONE 3 MG TAB.ER.24 PO SCH (20:55)
--- NOTE | 2019-06-07 01:04 | NUR ---
Nursing Progress Note: Legal hold: 5250 Client on involuntary status for GD/DTS Report received from nurse with use of SBAR: JACKIE Clements Why are they here: Pt. was brought to [facility] ER by [facility] after found loitering and rummaging through garbage cans. He is diagnosed with schizophrenia, however has been non medication compliant and toxicology screen was positive for amphetamines. Pt is unable to formulate a plan for food, detention or clothes. Pt will walk around the block for hours at at time and stare off into the distance. Pt had $130 in his pocket, but was found eating spoiled food from dumpster. He has a history of conservatorship. Assessment What has happened this shift: Pt. laying in bed asleep at the beginning of the shift, and remained here throughout most of the shift. However, he did attend HS snack then returned back to bed. This sql report writer introduced self and attempted to establish rapport, pt. presents as resistive to care (refuses V/S and physical assessment), fatigued, impulsive, irritable at times, and isolative. Attempted to complete 1:1 at bedside, pt. continues to be non-verbal, and occasionally will shake head yes or no to questions. Pt. is hypervigilant and is startled when another staff member walks into the room, he jumps out of bed. He also appears internally preoccupied. Pt. is compliant with HS medications, however restlessly rocks back and forth between bilateral feet awaiting there administration. After medication administration, this sql report writer asks pt. if he was able to swallow them OK. Pt. became irritable and lunges forward at this sql report writer, pulling open the side of his cheek and sticking out his tongue to demonstrate that he had swallowed the medications. He then returns to bed, will continue to monitor. S/I, H/I: Unable to assess per pt. non-verbal A/VH: Unable to assess per pt. non-verbal, however he appears to be internally preoccupied Sleep: Pt. presents with fatigue and remains in bed throughout most of the shift, however he does get up for HS snack ADL's: Pt. requires encouragement and direction from staff Group attendance: Pt. does attend HS snack Were meds taken: Yes Any med S/E: None Mental Status Exam Appearance: Hair disheveled, however did shower on AM shift. Dressed appropriately in hospital attire. Eye contact: Poor Behavior: Resistive to care, fatigued, impulsive, irritable at times, and isolative. Speech: Pt. is non-verbal, occasionally will shake head yes or no Mood: Slightly irritable and hypervigilant Affect: Flat Thought process: Unable to assess per pt. non-verbal Thought Content: Unable to assess per pt. non-verbal, however presents as preoccupied with internal stimulation and hypervigilant Cognition: Alert X1 (to name) Insight: Poor Judgment: Poor Interventions PRN's used: None Therapeutic interventions: Introduced self and attempted to establish rapport, maintained a safe and supportive environment, monitored behaviors and need for intervention, encouraged performance of ADLs, provided clear and simple instructions, and maintained Q 15 min safety checks. Restraints/seclusion/emergency medication: N/A Justification of Continued Inpatient Treatment: Per Dr. Gomes, pt. does not show any significant improvement and continues to require medication adjustments and a safe and supportive environment.
[2019-06-07 07:20] VITALS: BP 121/76
[2019-06-07] MEDS: multivitamins, therapeutics tablet PO SCH (07:35)
[2019-06-07] MEDS: omega-3 acid ethyl esters 1GM capsule PO SCH (07:35)
[2019-06-07] MEDS: vitamin D (cholecalciferol) 1,000 unit tablet PO SCH (07:35)
--- NOTE | 2019-06-07 15:50 | NUR ---
Nursing Progress Note: Legal hold: 5250 Client on involuntary status for GD/DTS Report received from nurse with use of SBAR: Bethany Chavarria RN Why are they here: Pt. was brought to [facility] ER by [facility] after found loitering and rummaging through garbage cans. He is diagnosed with schizophrenia, however has been non medication compliant and toxicology screen was positive for amphetamines. Pt is unable to formulate a plan for food, retirement or clothing. Pt will walk around the block for hours at at time and stare off into the distance. Pt had $130 in his pocket, but was found eating spoiled food from dumpster. He has a history of conservatorship. Assessment What has happened this shift: This nurse came on shift at 1200 pt slept until lunchtime. He was up for lunch then went back to bed and went to sleep. He continues to sleep. S/I, H/I: Pt will not speak to writer producer he is laying on his side with his eyes closed. A/VH: When awake he appears to be RIS Sleep: Gets up for meals then returns to bed ADL's: Pt. requires prompting Group attendance: No Were meds taken: Yes Any med S/E: None Mental Status Exam Appearance: Hair is a mess. has not showered this shift wearing green scrubs. Eye contact: Poor Behavior: Resistive to care, fatigued, impulsive, irritable at times, and isolative. Speech: Pt. is non-verbal Mood: Unknown slept all shift Affect: Flat Thought process: Unable to assess per pt. non-verbal Thought Content: Unable to assess per pt. non-verbal Cognition: Alert X1 (to name) Insight: Poor Judgment: Poor Interventions PRN's used: None Therapeutic interventions: Introduced self and attempted to establish rapport, encouraged a shower and attendance of groups, and maintained Q 15 min safety checks. Restraints/seclusion/emergency medication: N/A Justification of Continued Inpatient Treatment: Per Dr. Gomes, pt. does not show any significant improvement and continues to require medication adjustments and a safe and supportive environment.
[2019-06-07 19:42] VITALS: BP 121/72
[2019-06-07] MEDS: PALIPERIDONE 3 MG TAB.ER.24 PO SCH (20:17)
[2019-06-07] MEDS: OLANZAPINE 5 MG TABLET PO SCH (20:17)
--- NOTE | 2019-06-07 22:33 | NUR ---
Nursing Progress Note: Legal hold: 5250 Client on involuntary status for GD/DTS Report received from nurse with use of SBAR: JACKIE Clements Why are they here: Pt. was brought to [facility] ER by [employer] after found loitering and rummaging through garbage cans. He is diagnosed with schizophrenia, however has been non medication compliant and toxicology screen was positive for amphetamines. Pt is unable to formulate a plan for food, usp or clothes. Pt will walk around the block for hours at at time and stare off into the distance. Pt had $130 in his pocket, but was found eating spoiled food from dumpster. He has a history of conservatorship. Assessment What has happened this shift: Pt. laying in bed asleep at the beginning of the shift, and remained here throughout most of the shift. However, he did attend HS snack, and was compliant with V/S and physical assessment. Pt. continues to present as restless (rocks back and forth between bilateral feet), fatigued, anxious, guarded, and remains mostly non-verbal. He will shake his head yes or no to some questions, however does not respond to any questions regarding his mental health. Pt. continues to be hypervigilant, however does not make any impulsive movements as he did the previous shift. He remains internally preoccupied. Pt. is compliant with HS medications, this life underwriter provided positive encouragement and educated pt. to let staff know if he has any needs because we are here to help him, he nodded understanding. As this life underwriter was walking out of pt's room, he signaled with his hand and stated in a whispered and pressured way, "Can I get a sandwich?" This life underwriter provided pt. with a sandwich and he smiled and motioned thanks. Afterwards he was observed brushing his teeth before returning to bed, will continue to monitor. S/I, H/I: Pt. does not respond to any questions regarding his mental health A/VH: Unable to assess, however he appears to be internally preoccupied Sleep: Pt. presents with fatigue and remains in bed throughout most of the shift, however he does get up for HS snack, allows physical assessment, and brushes teeth ADL's: Pt. requires encouragement and direction from staff, however does attend HS snack and brush teeth before bed Group attendance: Pt. does not attend groups Were meds taken: Yes Any med S/E: None Mental Status Exam Appearance: Hair disheveled and slightly malodorous, however pt. did shower yesterday. Dressed appropriately in hospital attire. Eye contact: Poor to fair Behavior: Restless, fatigued, anxious, guarded, and remains mostly non-verbal Speech: Pt. is mostly non-verbal, will shake head yes or no to some questions. Speech is very minimal, whispered and pressured Mood: Cooperative and hypervigilant Affect: Flat Thought process: Unable to assess per pt. non-verbal Thought Content: Unable to assess per pt. non-verbal, however presents as preoccupied with internal stimulation and hypervigilant Cognition: Alert X1 (to name) Insight: Poor Judgment: Poor Interventions PRN's used: None Therapeutic interventions: Maintained a safe and supportive environment, monitored behaviors and need for intervention, encouraged performance of ADLs, provided positive encouragement and educated pt. to let staff know if he has any needs because we are here to help him, provided clear and simple instructions, and maintained Q 15 min safety checks. Restraints/seclusion/emergency medication: N/A Justification of Continued Inpatient Treatment: Per Dr. Gomes, pt. remains gravely disabled, and continues to require medication adjustments and a safe and supportive environment.
[2019-06-08] MEDS: vitamin D (cholecalciferol) 1,000 unit tablet PO SCH (07:10)
[2019-06-08] MEDS: omega-3 acid ethyl esters 1GM capsule PO SCH (07:10)
[2019-06-08] MEDS: multivitamins, therapeutics tablet PO SCH (07:10)
[2019-06-08 07:13] VITALS: BP 117/74
--- NOTE | 2019-06-08 10:55 | NUR ---
NURSING PROGRESS NOTE: Legal hold: 5250 Exp 06/16 @ 1525 Client on involuntary status for GD. Report received from JACKIE Glez with use of SBAR. Why are they here: Pt is diagnosed with schizophrenia. Pt is unable to formulate a plan for food, penitentiary or clothes. Pt will walk around the block for hours at at time and stare off into the distance. Pt had $130 in his pocket, but was found eating spoiled food from dumpster. Assessment What has happened this shift: The patient was asleep at change of shift. He was awakened for breakfast and meds which he ate and took his medications. He asked for a second serving of breakfast which was given and then he went promptly back to bed. When asked, the patient would answer simple questions by nodding his head yes or no. He only answers closed questions. He would not answer any questions in regard to hallucinations. He is calm, reserved and polite. He is isolative, nonverbal, but very cooperative with staff on the unit. S/I, H/I: Pt does not answer these questions A/VH: Pt does not answer questions Sleep: Naps throughout day ADL's: Took a shower Group attendance: no, slept Were meds taken: yes Any med S/E: None observed Mental Status Exam Appearance: Disheveled, Eye contact: Poor Behavior: Isolating Speech: did not speak, will nod Mood: depressed Affect: flat Thought process: Unable to assess Thought Content: Unable to assess Cognition: Oriented to person Insight: Poor Judgment: Poor Interventions PRN's used: None Therapeutic interventions: Therapeutic interventions: Continued therapeutic support and medication management needed to provide stabilization, prevent decompensation, improve coping mechanisms decreasing risk to patient and re-admittance. Restraints/seclusion/emergency medication: N/A Justification of Continued Inpatient Treatment: Pt. unable to formulate a viable plan for food, penitentiary and clothing.Continued therapeutic support and medication management needed to provide stabilization, prevent decompensation, improve coping mechanisms decreasing risk to patient and re-admittance.
[2019-06-08] MEDS ORDERED: paliperidone palmitate inj 234 MG/1.5 ML SYRINGE IM ONE (17:10)
[2019-06-08 19:32] VITALS: BP 136/77
[2019-06-08] MEDS: PALIPERIDONE 3 MG TAB.ER.24 PO SCH (21:13)
[2019-06-08] MEDS: OLANZAPINE 5 MG TABLET PO SCH (21:13)
--- NOTE | 2019-06-09 03:09 | NUR ---
NURSING PROGRESS NOTE: Legal hold: 5250 Exp 06/16 @ 1525 Client on involuntary status for GD. Report received from JACKIE Clements with use of SBAR. Why are they here: Pt is diagnosed with schizophrenia. Pt is unable to formulate a plan for food, halfway or clothes. Pt will walk around the block for hours at at time and stare off into the distance. Pt had $130 in his pocket, but was found eating spoiled food from dumpster. Assessment What has happened this shift: This patient was ambulating the halls after shift change. He looks wide eyed and has been reported to have not speaking much. The patient was in his room upon interview. He begins to speak to this commercial lines underwriter. When questioned it is evident that he is well oriented. Patient exhibits poor eye contact. He agrees to accept IM Invegra, this was administered. The patient with the assistance of one of the [employer]'s groomed his own loza with an electric loza ladarius. Patient denies H/I, S/I, or hallucinations. This patient remains medication compliant and returns to his room to sleep. The patient is reassured that he is in a safe place. He does exhibit understanding. S/I, H/I: Patient denies. A/VH: Patient denies. Sleep: Will tally in am. ADL's: Took a shower on days, trimmed own loza on NOC shift. Group attendance: Not on day shift, slept instead. Were meds taken: Yes. Any med S/E: None observed Mental Status Exam Appearance: Disheveled, Eye contact: Poor Behavior: Isolating Speech: Soft spoken, normal rate/rhythm. Mood: Depressed. Affect: Flat Thought process: Now becoming linear. Thought Content: Focused on trimming his loza. Cognition: Oriented to person, place, time, somewhat to situation. Insight: Poor Judgment: Poor Interventions PRN's used: None Therapeutic interventions: Therapeutic interventions: Continued therapeutic support and medication management needed to provide stabilization, prevent decompensation, improve coping mechanisms decreasing risk to patient and re-admittance. Restraints/seclusion/emergency medication: N/A Justification of Continued Inpatient Treatment: Pt. unable to formulate a viable plan for food, halfway and clothing.Continued therapeutic support and medication management needed to provide stabilization, prevent decompensation, improve coping mechanisms decreasing risk to patient and re-admittance.
[2019-06-09] MEDS: vitamin D (cholecalciferol) 1,000 unit tablet PO SCH (07:29)
[2019-06-09] MEDS: omega-3 acid ethyl esters 1GM capsule PO SCH (07:29)
[2019-06-09] MEDS: multivitamins, therapeutics tablet PO SCH (07:29)
[2019-06-09 08:00] VITALS: BP 109/68
--- NOTE | 2019-06-09 15:04 | NUR ---
NURSING PROGRESS NOTE: Legal hold: 5250 Exp 06/16 @ 1525 Client on involuntary status for GD. Report received from Vannesa Griffin RN with use of SBAR. Why are they here: Pt is diagnosed with schizophrenia. Pt is unable to formulate a plan for food, detention or clothes. Pt will walk around the block for hours at at time and stare off into the distance. Pt had $130 in his pocket, but was found eating spoiled food from dumpster. Assessment What has happened this shift: Patient is up walking around the unit at shift change. He is observed looking out the window. He returns to his room and medications are administered. He continues to be mainly non-verbal only speaking to state he would like a sandwich. He is more social than in past shifts worked. He wonders the unit more and will make direct eye contact. He attends all meals, does not attend groups, spending most to the day lying on his bed with no blanket or pillow, both of which he states he does not want. S/I, H/I: none reported A/VH: none reported Sleep: 9.25hrs NOC and rested during the day ADL's: Independent Group attendance: no Were meds taken: Yes. Any med S/E: None observed Mental Status Exam Appearance: hair unkempt, clean, trimmed loza Eye contact: occasional direct Behavior: Isolative and guarded Speech: Soft spoken, normal rate/rhythm. Mood: depressed Affect: Flat Thought process: unable to assess Thought Content: food Cognition: Oriented to person, place, time, somewhat to situation. Insight: Poor Judgment: Poor Interventions PRN's used: None Therapeutic interventions: 1:1 assessment, establishment of rapport, maintained safe therapeutic milieu, provided active listening with positive feedback, provided medication education, monitored for change in behavior and provided needed interventions. Q 15 minute safety checks. Restraints/seclusion/emergency medication: N/A Justification of Continued Inpatient Treatment: Pt. unable to formulate a viable plan for food, detention and clothing.Continued therapeutic support and medication management needed to provide stabilization, prevent decompensation, improve coping mechanisms decreasing risk to patient and re-admittance.
[2019-06-09 19:57] VITALS: BP 118/72
[2019-06-09] MEDS: PALIPERIDONE 3 MG TAB.ER.24 PO SCH (21:00)
[2019-06-09] MEDS: OLANZAPINE 5 MG TABLET PO SCH (21:00)
--- NOTE | 2019-06-10 00:43 | NUR ---
NURSING PROGRESS NOTE: Legal hold: 5250 Exp 06/16 @ 1525 Client on involuntary status for GD. Report received from JACKIE Clements with use of SBAR. Why are they here: Pt is diagnosed with schizophrenia. Pt is unable to formulate a plan for food, [facility] or clothes. Pt will walk around the block for hours at at time and stare off into the distance. Pt had $130 in his pocket, but was found eating spoiled food from dumpster. Assessment What has happened this shift: This patient is sleeping in his bed on his left side at shift change. He stays in his bed for most of the shift. When interviewed this patient chooses to get out of bed and stand. He in non verbal this shift. He nods his head yes or no. Patient is not making direct eye contact. He shifts nervously from one foot to the other. Patient presents as nervous. He is medication compliant. The patient is reassured that he is in a safe place, he nods yes in understanding. S/I, H/I: Patient shakes head no. A/VH: Patient shakes his head no. Sleep: Sleeping in evening, will tally hours in am. ADL's: Independent Group attendance: Not during day shift. Were meds taken: Yes. Any med S/E: None observed Mental Status Exam Appearance: Hair is unkempt, patient trimmed his own loza yesterday. Eye contact: Patient looks away. Behavior: Isolative and guarded Speech: Patient is non verbal on assessment specialist. Mood: depressed Affect: Flat Thought process: Unable to assess. Thought Content:Unknown. Cognition: Patient is awake, unable to evaluate this shift. He does follow commands. Insight: Poor Judgment: Poor Interventions PRN's used: None Therapeutic interventions: 1:1 assessment, establishment of rapport, maintained safe therapeutic milieu, provided active listening with positive feedback, provided medication education, monitored for change in behavior and provided needed interventions. Q 15 minute safety checks. Restraints/seclusion/emergency medication: N/A Justification of Continued Inpatient Treatment: Pt. unable to formulate a viable plan for food, [facility] and clothing.Continued therapeutic support and medication management needed to provide stabilization, prevent decompensation, improve coping mechanisms decreasing risk to patient and re-admittance.
[2019-06-10] MEDS: multivitamins, therapeutics tablet PO SCH (07:58)
[2019-06-10] MEDS: vitamin D (cholecalciferol) 1,000 unit tablet PO SCH (07:58)
[2019-06-10] MEDS: omega-3 acid ethyl esters 1GM capsule PO SCH (07:58)
[2019-06-10 08:00] VITALS: BP 120/78
--- NOTE | 2019-06-10 15:50 | NUR ---
NURSING PROGRESS NOTE: Legal hold: 5250 Exp 06/16 @ 1525 Client on involuntary status for GD. Report received from JACKIE Murcia with use of SBAR. Why are they here: Pt is diagnosed with schizophrenia. Pt is unable to formulate a plan for food, nursing home or clothes. Pt will walk around the block for hours at at time and stare off into the distance. Pt had $130 in his pocket, but was found eating spoiled food from dumpster. Assessment What has happened this shift: Patient is observed sleeping comfortably at ceballos of shift. He wakes and joins others in the rec room to watch t.v.. He nods his head yes when asked if he slept well last night. When asked how he is doing he also nods his head yes. He denies any issues or needs. He takes his medications and then eats his breakfast. Patient returns to his room and lays in bed. He does get up to attend afternoon recreation group. After group he is smiling and mildly conversational. He requests a snack and agrees to sign consent form. S/I, H/I: none reported A/VH: none reported Sleep: 9hrs NOC and rested during the day ADL's: Independent Group attendance: afternoon rec group Were meds taken: Yes. Any med S/E: None observed Mental Status Exam Appearance: hair unkempt, clean, trimmed loza Eye contact: direct Behavior: Isolative most of the day, see above Speech: Soft spoken, normal rate/rhythm. Mood: content Affect: Flat with brightening Thought process: linear Thought Content: food Cognition: Oriented to person, place, time, somewhat to situation. Insight: Poor Judgment: Poor Interventions PRN's used: None Therapeutic interventions: 1:1 assessment, establishment of rapport, maintained safe therapeutic milieu, provided active listening with positive feedback, provided medication education, monitored for change in behavior and provided needed interventions. Q 15 minute safety checks. Restraints/seclusion/emergency medication: N/A Justification of Continued Inpatient Treatment: Pt. unable to formulate a viable plan for food, nursing home and clothing.Continued therapeutic support and medication management needed to provide stabilization, prevent decompensation, improve coping mechanisms decreasing risk to patient and re-admittance.
[2019-06-10 20:00] VITALS: BP 110/63
[2019-06-10] MEDS: OLANZAPINE 5 MG TABLET PO SCH (20:38)
[2019-06-10] MEDS: PALIPERIDONE 3 MG TAB.ER.24 PO SCH (20:38)
[2019-06-10 20:57] VITALS: BP 124/74
--- NOTE | 2019-06-11 00:16 | NUR ---
NURSING PROGRESS NOTE: Legal hold: 5250 Exp 06/16 @ 1525 Client on involuntary status for GD. Report received from JACKIE Murcia with use of SBAR. Why are they here: Pt is diagnosed with schizophrenia. Pt is unable to formulate a plan for food, long term or clothes. Pt will walk around the block for hours at at time and stare off into the distance. Pt had $130 in his pocket, but was found eating spoiled food from dumpster. Assessment What has happened this shift: Patient is self isolating is his room, he is asleep. Patient arouses and stands up while this keno writer sits to talk to him. The patient is nearly all non verbal. He shifts from one foot to another. Patient exhibits anxiety. When asked how he feels the patient replies "fine." Patient Shakes his head no to hallucinations, voices, S/I, or H/I. The patient is medication compliant. He lays down on his bed and returns to sleep. Patient denied any blankets or a pillow. The patient was advised that he is in a safe place. The patient did exhibit understanding by nodding his head yes. S/I, H/I: None reported. A/VH: None reported. Sleep: Napping from shift change on, save for this interview. ADL's: Independent. Group attendance: Attended one group on the day shift. Were meds taken: Yes. Any med S/E: None observed. Mental Status Exam Appearance: Hair unkempt, clean, trimmed loza Eye contact: Intermittent. Behavior: Self isolating in bed. Speech: Non verbal. Mood: Anxious. Affect: Flat with brightening. Thought process: Linear. Thought Content: Unknown. Cognition: Oriented to person, unknown other.. Insight: Poor Judgment: Poor Interventions PRN's used: None Therapeutic interventions: 1:1 assessment, establishment of rapport, maintained safe therapeutic milieu, provided active listening with positive feedback, provided medication education, monitored for change in behavior and provided needed interventions. Q 15 minute safety checks. Restraints/seclusion/emergency medication: N/A Justification of Continued Inpatient Treatment: Pt. unable to formulate a viable plan for food, long term and clothing.Continued therapeutic support and medication management needed to provide stabilization, prevent decompensation, improve coping mechanisms decreasing risk to patient and re-admittance.
[2019-06-11 07:26] VITALS: BP 114/73
[2019-06-11 08:00] VITALS: BP 114/73
[2019-06-11] MEDS: vitamin D (cholecalciferol) 1,000 unit tablet PO SCH (08:16)
[2019-06-11] MEDS: omega-3 acid ethyl esters 1GM capsule PO SCH (08:16)
[2019-06-11] MEDS: multivitamins, therapeutics tablet PO SCH (08:17)
--- NOTE | 2019-06-11 10:58 | NUR ---
Reassessment: Patient with good appetite, eating well, 75-100% of regular diet. [facility] 06/09. Will continue to follow. Recommend: 1. Continue regular diet 2. Monitor need for bowel care 3. Encourage PO intake 4. Weekly weights Addendum: 06/11/19 at [address] Amended: Links added.
--- NOTE | 2019-06-11 16:40 | NUR ---
NURSING PROGRESS NOTE: Legal hold: 5250 Exp 06/16 @ 1525 Client on involuntary status for GD. Report received from JACKIE Glez with use of SBAR. Why are they here: Pt is diagnosed with schizophrenia. Pt is unable to formulate a plan for food, [facility] or clothes. Pt will walk around the block for hours at at time and stare off into the distance. Pt had $130 in his pocket, but was found eating spoiled food from dumpster. Assessment What has happened this shift: Patient is observed sleeping comfortably at ceballos of shift. He wakes and stands next to his bed shuffling from one foot to the next. He smiles softly and says yes when asked if he slept well. He eats his meals in the group room and takes all his medications without issue. He is not conversational but is answering with yes or no, making eye contact and asking for more food. He is observed walking in the hallways of unit. S/I, H/I: none reported A/VH: none reported Sleep: 10hrs NOC and rested during the day ADL's: Independent Group attendance: yes Were meds taken: Yes. Any med S/E: None observed Mental Status Exam Appearance: hair unkempt, clean, trimmed loza Eye contact: direct Behavior: more social than in past shifts Speech: Soft spoken, normal rate/rhythm. Mood: content Affect: Flat with brightening Thought process: linear Thought Content: food Cognition: Oriented to person, place, time, somewhat to situation. Insight: Poor Judgment: Poor Interventions PRN's used: None Therapeutic interventions: 1:1 assessment, establishment of rapport, maintained safe therapeutic milieu, provided active listening with positive feedback, provided medication education, monitored for change in behavior and provided needed interventions. Q 15 minute safety checks. Restraints/seclusion/emergency medication: N/A Justification of Continued Inpatient Treatment: Pt. unable to formulate a viable plan for food, [facility] and clothing.Continued therapeutic support and medication management needed to provide stabilization, prevent decompensation, improve coping mechanisms decreasing risk to patient and re-admittance.
[2019-06-11 20:06] VITALS: BP 124/75
[2019-06-11] MEDS: OLANZAPINE 5 MG TABLET PO SCH (21:10)
[2019-06-11] MEDS: PALIPERIDONE 3 MG TAB.ER.24 PO SCH (21:10)
--- NOTE | 2019-06-11 22:47 | NUR ---
NURSING PROGRESS NOTE: Legal hold: 5250 Exp 06/16 @ 1525 Client on involuntary status for GD. Report received from JACKIE Clements with use of SBAR. Why are they here: Pt is diagnosed with schizophrenia. Pt is unable to formulate a plan for food, [facility] or clothes. Pt will walk around the block for hours at at time and stare off into the distance. Pt had $130 in his pocket, but was found eating spoiled food from dumpster. Assessment What has happened this shift: Patient is in his bed sleeping at change of shift. He is agreeable to having his vitals signs this evening, but is mostly reluctant to any type of physical assessment. He stands immediately at his bedside when someone comes in the room to interact with him. He does not talk this evening, but is cooperative for medication pass. When asked if he wanted food or needed anything he just put his hand up and shook it back and forth, then laid back in his bed. Patient isolative and does not interact with others. S/I, H/I: None reported A/VH: None reported Sleep: See sleep assessment, currently sleeping ADL's: Independent Group attendance: No groups this shift Were meds taken: Yes Any med S/E: None observed Mental Status Exam Appearance: Hair unkempt, clean, trimmed loza Eye contact: direct Behavior: Isolative to room, would not talk this evening, just made hand gestures Speech: Non-verbal this evening Mood: Difficult to assess with patient not being verbal Affect: Fearful, paranoid Thought process: Unable to assess Thought Content: Unable to assess Cognition: Oriented to person/name Insight: Poor Judgment: Poor Interventions PRN's used: None Therapeutic interventions: 1:1 assessment, establishment of rapport, maintained safe therapeutic milieu, provided active listening with positive feedback, provided medication education, monitored for change in behavior and provided needed interventions. Q 15 minute safety checks. Restraints/seclusion/emergency medication: N/A Justification of Continued Inpatient Treatment: Pt. unable to formulate a viable plan for food, f[facility] and clothing.Continued therapeutic support and medication management needed to provide stabilization, prevent decompensation, improve coping mechanisms decreasing risk to patient and re-admittance.
--- NOTE | 2019-06-12 07:12 | NUR ---
[facility] CONTACT: CUAUHTEMOC made TC to [employer], , and attempted to leave message. Message reports is on vacation through 06/13/2019 and Luzma Bhatt is to be contacted at [phone]. CUAUHTEMOC made TC to [employer], Luzma Bhatt at [phone], to coordinate services for pt. CUAUHTEMOC left message requesting return contact. Renee Whitney, Bus Van Driver CLERK OF [employer] [id number] Supervised by Sincere Ramos, [id number]
[2019-06-12] MEDS: vitamin D (cholecalciferol) 1,000 unit tablet PO SCH (07:16)
[2019-06-12] MEDS: omega-3 acid ethyl esters 1GM capsule PO SCH (07:16)
[2019-06-12] MEDS: multivitamins, therapeutics tablet PO SCH (07:16)
[2019-06-12 08:00] VITALS: BP 131/77
--- NOTE | 2019-06-12 16:53 | NUR ---
NURSING PROGRESS NOTE: [place] Legal hold: 5250 Exp 06/16 @ 1525 Client on involuntary status for GD. Report received from Amaris CASTAÑEDA Why are they here: Pt is diagnosed with schizophrenia. Pt is unable to formulate a plan for food, jail or clothes. Pt will walk around the block for hours at at time and stare off into the distance. Pt had $130 in his pocket, but was found eating spoiled food from dumpster. Assessment What has happened this shift: Received report on this patient. Client was asleep in his bed during initial rounds. Client woke, took medications and then had breakfast. Client given extra portions due to excessive hunger. This client is compliant with all aspects of his care. Client is selectively mute but will respond if prompted. Client is more visible on unit and able to make his needs known to Staff. Client consumed lunch and then returned to his room to rest. Client has been resting in his bed the entire time after lunch. S/I, H/I: None reported A/VH: None reported Sleep: rested during shift ADL's: Independent Group attendance: no Were meds taken: Yes Any med S/E: None observed Mental Status Exam Appearance: Hair unkempt, clean, trimmed loza Eye contact: direct Behavior: Isolative to room, would not talk this evening, just made hand gestures Speech: Non-verbal this evening Mood: Difficult to assess with patient not being verbal Affect: Fearful, paranoid Thought process: Unable to assess Thought Content: Unable to assess Cognition: Oriented to person/name Insight: Poor Judgment: Poor Interventions PRN's used: Therapeutic interventions: 1:1 assessment, establishment of rapport, maintained safe therapeutic milieu, provided active listening with positive feedback, provided medication education, monitored for change in behavior and provided needed interventions. Q 15 minute safety checks. Restraints/seclusion/emergency medication: N/A Justification of Continued Inpatient Treatment: Pt. unable to formulate a viable plan for food, jail and clothing.Continued therapeutic support and medication management needed to provide stabilization, prevent decompensation, improve coping mechanisms decreasing risk to patient and re-admittance.
[2019-06-12 20:09] VITALS: BP 119/75
[2019-06-12] MEDS: OLANZAPINE 5 MG TABLET PO SCH (20:44)
[2019-06-12] MEDS: PALIPERIDONE 3 MG TAB.ER.24 PO SCH (20:44)
--- NOTE | 2019-06-13 00:25 | NUR ---
NURSING PROGRESS NOTE: Legal hold: 5250 Exp 06/16 @ 1525 Client on involuntary status for GD. Report received from JACKIE Rogers with use of SBAR. Why are they here: Pt is diagnosed with schizophrenia. Pt is unable to formulate a plan for food, correction or clothes. Pt will walk around the block for hours at at time and stare off into the distance. Pt had $130 in his pocket, but was found eating spoiled food from dumpster. Assessment What has happened this shift: Patient is in his bed laying with his eyes open at change of shift. He allows vital signs to be taken and is cooperative for an assessment. He does not answer many questions about himself, but he does nod, or say yes when asked if his day was good and if he needed anything. He requested water at this time stating "I ran out of water." He was observed walking in the halls a bit this evening and ate evening snack in the group room but mainly kept to himself. He stated he enjoyed his snack and was compliant for HS medications. S/I, H/I: None reported A/VH: None reported Sleep: See sleep assessment, currently sleeping ADL's: Independent Group attendance: No groups this shift Were meds taken: Yes Any med S/E: None observed Mental Status Exam Appearance: Hair unkempt, clean, trimmed loza Eye contact: Direct Behavior: Isolative to room, but was observed a couple times visible on the unit Speech: Low volume, normal rate Mood: Patient appeared in good mood and was smiling this evening. Affect: Congruent to mood, but still hesitant to interact with others. Thought process: Unable to assess Thought Content: Basic needs like food and water. Cognition: Oriented to person/name Insight: Poor Judgment: Poor Interventions PRN's used: None Therapeutic interventions: 1:1 assessment, establishment of rapport, maintained safe therapeutic milieu, provided active listening with positive feedback, provided medication education, monitored for change in behavior and provided needed interventions. Q 15 minute safety checks. Restraints/seclusion/emergency medication: N/A Justification of Continued Inpatient Treatment: Pt. unable to formulate a viable plan for food, correction and clothing.Continued therapeutic support and medication management needed to provide stabilization, prevent decompensation, improve coping mechanisms decreasing risk to patient and re-admittance.
[2019-06-13 07:34] VITALS: BP 120/74
[2019-06-13] MEDS: omega-3 acid ethyl esters 1GM capsule PO SCH (08:15)
[2019-06-13] MEDS: vitamin D (cholecalciferol) 1,000 unit tablet PO SCH (08:15)
[2019-06-13] MEDS: multivitamins, therapeutics tablet PO SCH (08:15)
--- NOTE | 2019-06-13 13:32 | NUR ---
[facility] CONTACT: CUAUHTEMOC made TC to [facility] Cop Winder, . SW left message requesting return contact for discharge planning. Renee Whitney, Fence Making Machine Operator R&D LAB TECHNICIAN [id number] Supervised by Sincere Ramos, [id number]
--- NOTE | 2019-06-13 15:19 | NUR ---
NURSING PROGRESS NOTE: Legal hold: 5250 Exp 06/16 @ 1525 Client on involuntary status for GD. Report received from JACKIE Glez with use of SBAR. Why are they here: Pt is diagnosed with schizophrenia. Pt is unable to formulate a plan for food, fpc or clothes. Pt will walk around the block for hours at at time and stare off into the distance. Pt had $130 in his pocket, but was found eating spoiled food from dumpster. Assessment What has happened this shift: The patient was asleep at change of shift and had to be awakened for breakfast. He would not speak when asked questions nor did he nod yes or no, just stared straight ahead and appeared paranoid. He got up for meals only and then went back to his bed and slept. He was med compliant. S/I, H/I: None reported A/VH: None reported Sleep: Napped throughout day ADL's: Independent with encouragement Group attendance: None Were meds taken: Yes Any med S/E: None observed Mental Status Exam Appearance: disheveled Eye contact: intermittent Behavior: Isolative to room, but up for meals Speech: did not speak Mood: calm, sleepy Affect: wide eyed Thought process: Unable to assess Thought Content: sleeping, food Cognition: Oriented to person/name Insight: Poor Judgment: Poor Interventions PRN's used: None Therapeutic interventions: 1:1 assessment, establishment of rapport, maintained safe therapeutic milieu, provided active listening with positive feedback, provided medication education, monitored for change in behavior and provided needed interventions. Q 15 minute safety checks. Restraints/seclusion/emergency medication: N/A Justification of Continued Inpatient Treatment: Pt. unable to formulate a viable plan for food, fpc and clothing.Continued therapeutic support and medication management needed to provide stabilization, prevent decompensation, improve coping mechanisms decreasing risk to patient and re-admittance.
[2019-06-13 20:04] VITALS: BP 122/70
[2019-06-13] MEDS: PALIPERIDONE 3 MG TAB.ER.24 PO SCH (21:08)
[2019-06-13] MEDS: OLANZAPINE 5 MG TABLET PO SCH (21:08)
--- NOTE | 2019-06-14 03:19 | NUR ---
NURSING PROGRESS NOTE: Legal hold: 5250 Exp 06/16 @ 1525 Client on involuntary status for GD. Report received from JACKIE De La Paz with use of SBAR. Why are they here: Pt is diagnosed with schizophrenia. Pt is unable to formulate a plan for food, long term or clothes. Pt will walk around the block for hours at at time and stare off into the distance. Pt had $130 in his pocket, but was found eating spoiled food from dumpster. Assessment What has happened this shift: Patient is in bed at change of shift. His RR are even and unlabored, no distress is noted. Patient is isolative and keeps to himself. He does not answer questions this evening. When attempt is made to do an assessment patient just stands and steps back and fourth from foot to foot, rocking nervously. When asked if he needed anything he just shook his head no. He was compliant with HS medications, and laid back in bed after Medication administration. S/I, H/I: None reported A/VH: None reported Sleep: See sleep assessment, currently sleeping ADL's: Independent Group attendance: No groups this shift Were meds taken: Yes Any med S/E: None observed Mental Status Exam Appearance: Unkempt Eye contact: Direct Behavior: Isolative to room Speech: Low volume, normal rate Mood: Patient isolative this shift, was non-verbal Affect: Congruent to mood Thought process: Unable to assess Thought Content: Basic needs like food and water. Cognition: Oriented to person/name Insight: Poor Judgment: Poor Interventions PRN's used: None Therapeutic interventions: 1:1 assessment, establishment of rapport, maintained safe therapeutic milieu, provided active listening with positive feedback, provided medication education, monitored for change in behavior and provided needed interventions. Q 15 minute safety checks. Restraints/seclusion/emergency medication: N/A Justification of Continued Inpatient Treatment: Pt. unable to formulate a viable plan for food, long term and clothing.Continued therapeutic support and medication management needed to provide stabilization, prevent decompensation, improve coping mechanisms decreasing risk to patient and re-admittance.
[2019-06-14] MEDS: vitamin D (cholecalciferol) 1,000 unit tablet PO SCH (07:53)
[2019-06-14] MEDS: multivitamins, therapeutics tablet PO SCH (07:53)
[2019-06-14] MEDS: omega-3 acid ethyl esters 1GM capsule PO SCH (07:53)
[2019-06-14 07:57] VITALS: BP 110/70
--- NOTE | 2019-06-14 16:54 | NUR ---
NURSING PROGRESS NOTE: Legal hold: 5250 Exp 06/16 @ 1525 Client on involuntary status for GD. Report received from JACKIE Tang with use of SBAR. Why are they here: Pt is diagnosed with schizophrenia. Pt is unable to formulate a plan for food, long term or clothes. Pt will walk around the block for hours at at time and stare off into the distance. Pt had $130 in his pocket, but was found eating spoiled food from dumpster. Assessment What has happened this shift: The patient was asleep at change of shift and had to be awakened for breakfast. He spoke to nurse and answered all brief questions today. He agreed to attend both groups but refused to go at the given time, instead sleeping all day except for meals. He was told he was expected to try to attend groups. he stated he would try "next time." S/I, H/I: None reported A/VH: None reported Sleep: Napped throughout day ADL's: Independent with encouragement Group attendance: None Were meds taken: Yes Any med S/E: None observed Mental Status Exam Appearance: disheveled Eye contact: intermittent Behavior: Isolative to room, but up for meals Speech: answered simple questions Mood: calm, sleepy Affect: paranoid Thought process: simple Thought Content: sleeping, food Cognition: Oriented to person/name Insight: Poor Judgment: Poor Interventions PRN's used: None Therapeutic interventions: 1:1 assessment, establishment of rapport, maintained safe therapeutic milieu, provided active listening with positive feedback, provided medication education, monitored for change in behavior and provided needed interventions. Q 15 minute safety checks. Restraints/seclusion/emergency medication: N/A Justification of Continued Inpatient Treatment: Pt. unable to formulate a viable plan for food, long term and clothing.Continued therapeutic support and medication management needed to provide stabilization, prevent decompensation, improve coping mechanisms decreasing risk to patient and re-admittance.
[2019-06-14 19:00] VITALS: BP 109/70
--- NOTE | 2019-06-14 20:26 | NUR ---
MA MESSAGE: CUAUHTEMOC received return contact from Elizabeth MA CUAUHTEMOC, who instructs this software writer to contact Dr. Torres at [phone], regarding discharge planning and pt needs. CUAUHTEMOC will return contact on 06/17/2019 Renee Whitney, Elevator Examiner TAKE AWAY WORKER Supervised by Sincere Ramos, [id number]
[2019-06-14] MEDS: OLANZAPINE 5 MG TABLET PO SCH (21:35)
[2019-06-14] MEDS: PALIPERIDONE 3 MG TAB.ER.24 PO SCH (21:35)
--- NOTE | 2019-06-15 00:08 | NUR ---
NURSING PROGRESS NOTE: Legal hold: 5250 Exp 06/16 @ 1525 Client on involuntary status for GD. Report received from JACKIE De La Paz with use of SBAR. Why are they here: Pt is diagnosed with schizophrenia. Pt is unable to formulate a plan for food, mcc or clothes. Pt will walk around the block for hours at at time and stare off into the distance. Pt had $130 in his pocket, but was found eating spoiled food from dumpster. Assessment What has happened this shift: Patient laying in bed at change of shift. Greeted him and made attempt to assess patient. Patient did wave to this RN, but would not talk. He remained in bed all shift only coming out for food. He was compliant with HS medications this evening. S/I, H/I: None reported, patient would not talk today. A/VH: None reported, patient would not talk today. Sleep: See sleep assessment, currently sleeping ADL's: Independent with encouragement Group attendance: None Were meds taken: Yes Any med S/E: None observed Mental Status Exam Appearance: Disheveled Eye contact: Intermittent Behavior: Isolative to room, but up for meals Speech: Would not answer questions this evening, waved when greeted. Mood: Difficult to assess, patient not verbal today. Affect: Paranoid Thought process: Unable to assess Thought Content: Basic needs like food, and mcc Cognition: Oriented to person/name Insight: Poor Judgment: Poor Interventions PRN's used: None Therapeutic interventions: 1:1 assessment, establishment of rapport, maintained safe therapeutic milieu, provided active listening with positive feedback, provided medication education, monitored for change in behavior and provided needed interventions. Q 15 minute safety checks. Restraints/seclusion/emergency medication: N/A Justification of Continued Inpatient Treatment: Pt. unable to formulate a viable plan for food, mcc and clothing.Continued therapeutic support and medication management needed to provide stabilization, prevent decompensation, improve coping mechanisms decreasing risk to patient and re-admittance.
[2019-06-15 08:00] VITALS: BP 120/74
[2019-06-15] MEDS: vitamin D (cholecalciferol) 1,000 unit tablet PO SCH (08:16)
[2019-06-15] MEDS: omega-3 acid ethyl esters 1GM capsule PO SCH (08:16)
[2019-06-15] MEDS: multivitamins, therapeutics tablet PO SCH (08:16)
[2019-06-15 08:28] VITALS: BP 120/74
[2019-06-15] MEDS ORDERED: venlafaxine XR 37.5mg cap (Q24H) PO ONE (16:45)
--- NOTE | 2019-06-15 17:04 | NUR ---
NURSING PROGRESS NOTE: Legal hold: 5250 Exp 06/16 @ 1525 Client on involuntary status for GD. Report received from GARRY Galo with use of SBAR. Why are they here: Pt is diagnosed with schizophrenia. Pt is unable to formulate a plan for food, detention or clothes. Pt reported to walk around the block for hours at at time and stare off into the distance. Pt had $130 in his pocket, but was found eating spoiled food from dumpster. Assessment What has happened this shift: Pt was sleeping at the change of shift. He was compliant with medication administration. During the assessment, he stood beside his bed rocking back and forth. Most questions were answered with a one word answer or nodding his head yes or no. He did not make eye contact. When asked why he was here he indicated he did not know. He denied having pain. He was up for meals, but napped throughout the day. S/I, H/I: None reported A/VH: None reported Sleep: Napped during the day ADL's: Independent with prompting Group attendance: No Were meds taken: Yes Any med S/E: None observed Mental Status Exam Appearance: Disheveled Eye contact: Does not make eye contact Behavior: Isolates and naps, up for meals Speech: Minimal speech Mood: Unable to assess Affect: Blunted Thought process: Unable to assess Thought Content: Unable to assess, pt minimally answered questions Cognition: Oriented to person/name Insight: Poor Judgment: Poor Interventions PRN's used: None Therapeutic interventions: 1:1 therapeutic assessment, active listening, medication administration/education/monitoring, maintained safe and supportive milieu, q15 min safety checks. Restraints/seclusion/emergency medication: N/A Justification of Continued Inpatient Treatment: Pt. unable to formulate a viable plan for food, detention and clothing.Continued therapeutic support and medication management needed to provide stabilization, prevent decompensation, improve coping mechanisms decreasing risk to patient and re-admittance.
[2019-06-15] MEDS: PALIPERIDONE 3 MG TAB.ER.24 PO SCH (21:23)
--- NOTE | 2019-06-16 03:11 | NUR ---
NURSING PROGRESS NOTE: Legal hold: 5250 Exp 06/16 @ 1525 Client on involuntary status for GD. Report received from JACKIE De La Paz with use of SBAR. Why are they here: Pt is diagnosed with schizophrenia. Pt is unable to formulate a plan for food, skilled nursing or clothes. Pt reported to walk around the block for hours at at time and stare off into the distance. Pt had $130 in his pocket, but was found eating spoiled food from dumpster. Assessment What has happened this shift: Patient is in bed following shift change. He is self isolating. When asked questions patient nods his head yes or no. He is non verbal. This proposal manager writer asked the patient if he needed anything? The patient suddenly smiled and snapped to attention, "I want a peanut butter and jelly sandwich!!" This proposal manager writer told the patient that a sandwich could be given, but first would you continue answering questions? The patient complied without problem. Eye contact is consistent, his mood is brightened. The patient denies S/I, H/I, or depression. This patient continues to isolate in his room. Patient only awakens for his PB&J sandwich. He does not socialize with other patient. S/I, H/I: Patient denies. A/VH: Patient denies. Sleep: Slept most of shift. ADL's: Independent with prompting Group attendance: No Were meds taken: Yes Any med S/E: None observed Mental Status Exam Appearance: Disheveled Eye contact: Fair to good eye contact. Behavior: Isolates and naps, up for meals Speech: Minimal speech. Mood: Brightening noted. Affect: Blunted Thought process: Excited about getting a sandwich. Thought Content: Patient denies problems, doesn't complain of problems. Cognition: Oriented X4. Insight: Poor Judgment: Poor Interventions PRN's used: None Therapeutic interventions: 1:1 therapeutic assessment, active listening, medication administration/education/monitoring, maintained safe and supportive milieu, q15 min safety checks. Restraints/seclusion/emergency medication: N/A Justification of Continued Inpatient Treatment: Pt. unable to formulate a viable plan for food, skilled nursing and clothing.Continued therapeutic support and medication management needed to provide stabilization, prevent decompensation, improve coping mechanisms decreasing risk to patient and re-admittance.
[2019-06-16] MEDS: omega-3 acid ethyl esters 1GM capsule PO SCH (07:57)
[2019-06-16] MEDS: vitamin D (cholecalciferol) 1,000 unit tablet PO SCH (07:57)
[2019-06-16] MEDS: multivitamins, therapeutics tablet PO SCH (07:57)
[2019-06-16 08:00] VITALS: BP 112/67
[2019-06-16] MEDS: venlafaxine XR 75mg capsule (Q24H) PO SCH (08:24)
--- NOTE | 2019-06-16 15:44 | NUR ---
NURSING PROGRESS NOTE: Legal hold: 5270 Client on involuntary status for GD. Report received from JACKIE Tang with use of SBAR. Why are they here: Pt is diagnosed with schizophrenia. Pt is unable to formulate a plan for food, fci or clothes. Pt reported to walk around the block for hours at at time and stare off into the distance. Pt had $130 in his pocket, but was found eating spoiled food from dumpster. Assessment What has happened this shift: The patient is asleep at change of shift. Gets up when breakfast arrives. Answers simple yes or no questions, eats and returns to bed. Agrees to go to group then refuses to go. Documents and explanation of 5270 provided to patient which he signed. S/I, H/I: Patient denies. A/VH: Patient denies. Sleep: Slept most of shift. ADL's: Independent with prompting Group attendance: No Were meds taken: Yes Any med S/E: None observed Mental Status Exam Appearance: Disheveled Eye contact: very poor Behavior: Isolates and naps, up for meals Speech: Minimal speech. Mood: anxious when up Affect: flat Thought process: blocking? Thought Content: Patient denies problems, doesn't complain of problems. Cognition: Alert. Insight: Poor Judgment: Poor Interventions PRN's used: None Therapeutic interventions: 1:1 therapeutic assessment, active listening, medication administration/education/monitoring, maintained safe and supportive milieu, q15 min safety checks. Restraints/seclusion/emergency medication: N/A Justification of Continued Inpatient Treatment: Pt. unable to formulate a viable plan for food, fci and clothing.Continued therapeutic support and medication management needed to provide stabilization, prevent decompensation, improve coping mechanisms decreasing risk to patient and re-admittance.
[2019-06-16 19:21] VITALS: BP 145/99
[2019-06-16] MEDS: PALIPERIDONE 3 MG TAB.ER.24 PO SCH (20:47)
--- NOTE | 2019-06-17 00:14 | NUR ---
NURSING PROGRESS NOTE: Legal hold: 5270 Client on involuntary status for GD. Report received from JACKIE De La Paz with use of SBAR. Why are they here: Pt is diagnosed with schizophrenia. Pt is unable to formulate a plan for food, skilled nursing or clothes. Pt reported to walk around the block for hours at at time and stare off into the distance. Pt had $130 in his pocket, but was found eating spoiled food from dumpster. Assessment What has happened this shift: Pt sleeping at change of shift; awakens for vitals, snack, and to take medications. Pt doesn't interact with peers and would not answer questions for this nurse, except to state he wanted a sandwich and that he is "good". Pt unable to state why he is in the hospital. Pt went to bed immediately after HS medication administration. S/I, H/I: Pt would not answer. A/VH: Pt would not answer, and did not appear to be responding to any internal stimuli. Sleep: See Sleep Assessment ADL's: Independent with prompting Group attendance: N/A Were meds taken: Yes Any med S/E: None observed nor reported Mental Status Exam Appearance: Disheveled, wearing street shirt and green scrub pants with nonskid socks Eye contact: Poor to none Behavior: Sleeping, Attended HS Snack Speech: Clear, Soft tone; Minimal, one word responses Mood: Pt stated "Good" Affect: Flat Thought process: Unable to determine Thought Content: Wants a sandwich Cognition: A&O to name Insight: Poor Judgment: Poor Interventions PRN's used: None Therapeutic interventions: 1:1 therapeutic assessment, active listening, medication administration/education/monitoring, maintained safe and supportive milieu, q15 min safety checks. Restraints/seclusion/emergency medication: N/A Justification of Continued Inpatient Treatment: Pt. unable to formulate a viable plan for food, skilled nursing and clothing.Continued therapeutic support and medication management needed to provide stabilization, prevent decompensation, improve coping mechanisms decreasing risk to patient and re-admittance.
--- NOTE | 2019-06-17 07:05 | NUR ---
[facility] CONTACT: SW made TC to Dr. Torres at [phone] and left message requesting return contact for pt discharge planning. Renee Whitney, Cloth Packer TUGBOAT DISPATCHER [id number] Supervised by Sincere Ramos, [id number]
[2019-06-17 07:50] VITALS: BP 108/76
[2019-06-17] MEDS: vitamin D (cholecalciferol) 1,000 unit tablet PO SCH (07:56)
[2019-06-17] MEDS: omega-3 acid ethyl esters 1GM capsule PO SCH (07:56)
[2019-06-17] MEDS: venlafaxine XR 75mg capsule (Q24H) PO SCH (07:56)
[2019-06-17] MEDS: multivitamins, therapeutics tablet PO SCH (07:56)
--- NOTE | 2019-06-17 17:06 | NUR ---
NURSING PROGRESS NOTE: Legal hold: 5270 Client on involuntary status for GD. Report received from JACKIE Murcia with use of SBAR. Why are they here: Pt is diagnosed with schizophrenia. Pt is unable to formulate a plan for food, alf or clothes. Pt reported to walk around the block for hours at at time and stare off into the distance. Pt had $130 in his pocket, but was found eating spoiled food from dumpster. Assessment What has happened this shift: The patient is asleep at change of shift. Gets up when breakfast arrives. Answers simple yes or no questions, eats and returns to bed. Agrees to go to group and try to stay in the group. He was able to go into the Art therapy group and stayed for 10 minutes. 5270 Hearing, upheld today. Patient declined to attend hearing and did not contest. S/I, H/I: Patient denies. A/VH: Patient denies. Sleep: Slept most of shift. ADL's: Independent with prompting Group attendance: Yes, briefly Were meds taken: Yes Any med S/E: None observed Mental Status Exam Appearance: Disheveled Eye contact: very poor Behavior: Isolates and naps, up for meals Speech: Minimal speech. Mood: anxious when up Affect: flat Thought process: blocking? Thought Content: Patient denies problems, doesn't complain of problems. Cognition: Alert. Insight: Poor Judgment: Poor Interventions PRN's used: None Therapeutic interventions: 1:1 therapeutic assessment, active listening, medication administration/education/monitoring, maintained safe and supportive milieu, q15 min safety checks. Restraints/seclusion/emergency medication: N/A Justification of Continued Inpatient Treatment: Pt. unable to formulate a viable plan for food, alf and clothing.Continued therapeutic support and medication management needed to provide stabilization, prevent decompensation, improve coping mechanisms decreasing risk to patient and re-admittance.
[2019-06-17 20:22] VITALS: BP 114/70
[2019-06-17] MEDS: PALIPERIDONE 3 MG TAB.ER.24 PO SCH (21:00)
--- NOTE | 2019-06-17 22:39 | NUR ---
NURSING PROGRESS NOTE: Legal hold: 5270 Client on involuntary status for GD. Report received from JACKIE De La Paz with use of SBAR. Why are they here: Pt is diagnosed with schizophrenia. Pt is unable to formulate a plan for food, long term or clothes. Pt reported to walk around the block for hours at at time and stare off into the distance. Pt had $130 in his pocket, but was found eating spoiled food from dumpster. Assessment What has happened this shift: Pt sleeping at change of shift; awakens for vitals, snack, and to take medications. Pt doesn't interact with peers and would not answer questions for this nurse, except to to nod yes or no to some of the questions. Pt refused physical assessment. Pt unable to state why he is in the hospital. Pt went to bed immediately after HS medication administration. S/I, H/I: Pt nodded 'No' A/VH: Pt would not answer, and did not appear to be responding to any internal stimuli. Sleep: See Sleep Assessment ADL's: Independent with prompting Group attendance: N/A Were meds taken: Yes Any med S/E: None observed nor reported Mental Status Exam Appearance: Disheveled, wearing street shirt and green scrub pants with nonskid socks Eye contact: Poor to none Behavior: Sleeping, Attended HS Snack Speech: Head gestures only to answer questions Mood: Pt nodded 'yes' when asked how he was feeling Affect: Flat Thought process: Unable to determine Thought Content: Unable to determine Cognition: A&O to name Insight: Poor Judgment: Poor Interventions PRN's used: None Therapeutic interventions: 1:1 therapeutic assessment, active listening, medication administration/education/monitoring, maintained safe and supportive milieu, q15 min safety checks. Restraints/seclusion/emergency medication: N/A Justification of Continued Inpatient Treatment: Pt. unable to formulate a viable plan for food, long term and clothing.Continued therapeutic support and medication management needed to provide stabilization, prevent decompensation, improve coping mechanisms decreasing risk to patient and re-admittance.
[2019-06-18 07:31] VITALS: BP 116/74
[2019-06-18] MEDS: venlafaxine XR 75mg capsule (Q24H) PO SCH (07:51)
[2019-06-18] MEDS: multivitamins, therapeutics tablet PO SCH (07:51)
[2019-06-18] MEDS: vitamin D (cholecalciferol) 1,000 unit tablet PO SCH (07:52)
[2019-06-18] MEDS: omega-3 acid ethyl esters 1GM capsule PO SCH (07:52)
--- NOTE | 2019-06-18 09:30 | NUR ---
Reassessment: Patient with good appetite, eating well, 75-100% of regular diet. [facility] 06/17. Will continue to follow. Recommend: 1. Continue regular diet 2. Monitor need for bowel care 3. Encourage PO intake 4. Weekly weights Addendum: 06/18/19 at [address] Amended: Links added.
--- NOTE | 2019-06-18 13:41 | NUR ---
[facility] CONTACT: SW made TC to Dr. Torres at [phone] and left message requesting return contact for pt discharge planning. Renee Whitney, All Terrain Vehicle Technician GRAVEL TRUCK DRIVER [id number] Supervised by Sincere Ramos, [id number]
--- NOTE | 2019-06-18 16:17 | NUR ---
NURSING PROGRESS NOTE: FELICIA Legal hold: 5270 Client on involuntary status for GD. Report received from JACKIE Glez with use of SBAR. Why are they here: Pt is diagnosed with schizophrenia. Pt is unable to formulate a plan for food, senior care or clothes. Pt reported to walk around the block for hours at at time and stare off into the distance. Pt had $130 in his pocket, but was found eating spoiled food from dumpster. Assessment What has happened this shift: Pt sleeping at change of shift; awakens for breakfast and to take medications. Pt doesn't socialize with peers and refused assessment from this nurse. He reports he slept well, denies any SE's to medications, none objectively observed. He is unable to stand still and shifts weight from left to right leg, denies restless legs. Pt refused physical assessment. Pt unable to state why he is in the hospital but does request a sandwich. S/I, H/I: Pt nodded 'No' A/VH: Pt not appear to be responding to any internal stimuli. Sleep: 8.5 hrs NOC ADL's: Independent, some prompting Group attendance: No Were meds taken: Yes Any med S/E: None observed nor reported Mental Status Exam Appearance: Disheveled, wearing street shirt and green scrub pants with nonskid socks Eye contact: Poor Behavior: Restless Speech: Unable to assess Mood: Unable to assess Affect: Paranoid Thought process: Unable to determine Thought Content: Unable to determine Cognition: A&O to name Insight: Poor Judgment: Poor Interventions PRN's used: None Therapeutic interventions: 1:1 therapeutic assessment, active listening, medication administration/education/monitoring, maintained safe and supportive milieu, q15 min safety checks. Restraints/seclusion/emergency medication: N/A Justification of Continued Inpatient Treatment: Pt. unable to formulate a viable plan for food, senior care and clothing.Continued therapeutic support and medication management needed to provide stabilization, prevent decompensation, improve coping mechanisms decreasing risk to patient and re-admittance.
[2019-06-18 19:48] VITALS: BP 115/59
[2019-06-18] MEDS: PALIPERIDONE 3 MG TAB.ER.24 PO SCH (20:25)
[2019-06-18] MEDS: magnesium hydroxide 30ml (MOM) UD suspension PO PRN (20:27)
--- NOTE | 2019-06-19 00:50 | NUR ---
NURSING PROGRESS NOTE: FELICIA Legal hold: 5270 Client on involuntary status for GD. Report received from JACKIE De La Paz with use of SBAR. Why are they here: Pt is diagnosed with schizophrenia. Pt is unable to formulate a plan for food, mcfp or clothes. Pt reported to walk around the block for hours at at time and stare off into the distance. Pt had $130 in his pocket, but was found eating spoiled food from dumpster. Assessment What has happened this shift: Patient is sleeping is bed following shift change. He responds to this abstract writer calling his name, he rolls over in bed and talks. The patient makes direct eye contact tonight. He is well oriented. Patient denies S/I, H/I or hallucinations. Patient speaks softly with a normal rate and rhythm. When patient is asked if he ate dinner he shakes his head yes and smiles. When advised snacks would be given out later the patient exhibits excitement. At snack time the patient readily went to the community room and ate. He did not socialize with others. The patient did quietly return to bed after eating. The patients only complaint was constipation. He was administered Milk of Mag. The patient is somewhat unkept with body odor present. The patient states he will shower in am. This patient was advised that he is in a safe place. He exhibits understanding. S/I, H/I: Pt nodded Patient denies. A/VH: None noted. Sleep: In bed sleeping since shift change save for snacks and medication administration. ADL's: Independent, some prompting. Group attendance: None on days. Were meds taken: Yes, patient is medication compliant. Any med S/E: None observed nor reported Mental Status Exam Appearance: Disheveled, wearing street shirt and green scrub pants with nonskid socks. Eye contact: Poor Behavior: Restless. Speech: Unable to assess Mood: Euthymia. Affect: Blunted. Thought process: Linear. Thought Content: Unable to determine Cognition: Oriented to person, place, year, and situation. Insight: Poor Judgment: Poor Interventions PRN's used: None Therapeutic interventions: 1:1 therapeutic assessment, active listening, medication administration/education/monitoring, maintained safe and supportive milieu, q15 min safety checks. Restraints/seclusion/emergency medication: N/A Justification of Continued Inpatient Treatment: Pt. unable to formulate a viable plan for food, mcfp and clothing.Continued therapeutic support and medication management needed to provide stabilization, prevent decompensation, improve coping mechanisms decreasing risk to patient and re-admittance.
--- NOTE | 2019-06-19 07:19 | NUR ---
[facility] CONTACT: CUAUHTEMOC made TC to Dr. Torres at [phone] and left message requesting return contact for pt discharge planning. CUAUHTEMOC made TC to (Frias?)MABLE at [phone] requesting return contact due to lack of contact w/ Dr. Torres. Renee Whitney, Dress Cap Maker COLOR WORKER [id number] Supervised by Sincere Ramos, [id number]
[2019-06-19] MEDS: venlafaxine XR 75mg capsule (Q24H) PO SCH (07:39)
[2019-06-19] MEDS: omega-3 acid ethyl esters 1GM capsule PO SCH (07:39)
[2019-06-19] MEDS: vitamin D (cholecalciferol) 1,000 unit tablet PO SCH (07:39)
[2019-06-19] MEDS: multivitamins, therapeutics tablet PO SCH (07:39)
[2019-06-19 07:48] VITALS: BP 125/78
[2019-06-19] MEDS: docusate sod 100mg capsule PO SCH ×2 (09:42→20:42)
--- NOTE | 2019-06-19 16:58 | NUR ---
NURSING PROGRESS NOTE: FELICIA Legal hold: 5270 Client on involuntary status for GD. Report received from JACKIE Glez with use of SBAR. Why are they here: Pt is diagnosed with schizophrenia. Pt is unable to formulate a plan for food, fdc or clothes. Pt reported to walk around the block for hours at at time and stare off into the distance. Pt had $130 in his pocket, but was found eating spoiled food from dumpster. Assessment What has happened this shift: Pt sleeping at change of shift; awakens for breakfast and to take medications. Pt doesn't socialize with peers and refused assessment although he is very pleasant. He reports he slept well, denies any SE's to medications, none objectively observed. He reports that he hasnt had a BM in a couple days, MD notified, Colace verbal order given. He is unable to stand still during our brief assessment. Pt refused physical assessment. Pt is talking more but with short answers, no complete sentences. S/I, H/I: Pt nodded 'No' A/VH: Pt not appear to be responding to any internal stimuli. Sleep: 8.5 hrs NOC ADL's: Independent, some prompting Group attendance: No Were meds taken: Yes Any med S/E: None observed nor reported Mental Status Exam Appearance: Disheveled, dirty green shirt Eye contact: Poor Behavior: Restless Speech: Unable to assess Mood: Unable to assess Affect: Pleasant but distracted Thought process: Unable to determine Thought Content: Unable to determine Cognition: A&O to name Insight: Poor Judgment: Poor Interventions PRN's used: None Therapeutic interventions: 1:1 therapeutic assessment, active listening, medication administration/education/monitoring, maintained safe and supportive milieu, q15 min safety checks. Restraints/seclusion/emergency medication: N/A Justification of Continued Inpatient Treatment: Pt. unable to formulate a viable plan for food, fdc and clothing.Continued therapeutic support and medication management needed to provide stabilization, prevent decompensation, improve coping mechanisms decreasing risk to patient and re-admittance.
[2019-06-19 20:00] VITALS: BP 121/73
[2019-06-19] MEDS: PALIPERIDONE 3 MG TAB.ER.24 PO SCH (20:42)
--- NOTE | 2019-06-19 22:12 | NUR ---
NURSING PROGRESS NOTE: Legal hold: 5270 Client on involuntary status for GD. Report received from JACKIE Crocker with use of SBAR. Why are they here: Pt is diagnosed with schizophrenia. Pt is unable to formulate a plan for food, snf or clothes. Pt reported to walk around the block for hours at at time and stare off into the distance. Pt had $130 in his pocket, but was found eating spoiled food from dumpster. Assessment What has happened this shift: Pt sleeping at change of shift; awakens for vitals, snack, and to take medications. Pt making eye contact and answering some questions with short one word responses. Pt refused certain parts of physical assessment but cooperated with most of it, letting me listen to his lungs. Pt unable to state why he is in the hospital but knows he is in the hospital. Pt went to bed immediately after HS medication administration. S/I, H/I: Denies A/VH: Denies Sleep: See Sleep Assessment ADL's: Independent with prompting; needs to shower Group attendance: N/A Were meds taken: Yes Any med S/E: None observed nor reported Mental Status Exam Appearance: Disheveled, wearing street shirt and green scrub pants with nonskid socks Eye contact: Intermittent Behavior: Sleeping, Attended HS Snack Speech: Clear, soft Mood: Pt nodded 'yes' when asked how he was feeling Affect: Flat Thought process: Unable to determine Thought Content: Unable to determine Cognition: A&O to name, place Insight: Poor Judgment: Poor Interventions PRN's used: None Therapeutic interventions: 1:1 therapeutic assessment, active listening, medication administration/education/monitoring, maintained safe and supportive milieu, q15 min safety checks. Restraints/seclusion/emergency medication: N/A Justification of Continued Inpatient Treatment: Pt. unable to formulate a viable plan for food, snf and clothing.Continued therapeutic support and medication management needed to provide stabilization, prevent decompensation, improve coping mechanisms decreasing risk to patient and re-admittance.
[2019-06-20 07:29] VITALS: BP 110/75
[2019-06-20] MEDS: vitamin D (cholecalciferol) 1,000 unit tablet PO SCH (08:04)
[2019-06-20] MEDS: omega-3 acid ethyl esters 1GM capsule PO SCH (08:04)
[2019-06-20] MEDS: multivitamins, therapeutics tablet PO SCH (08:05)
[2019-06-20] MEDS: docusate sod 100mg capsule PO SCH ×2 (08:05→20:00)
[2019-06-20] MEDS: venlafaxine XR 75mg capsule (Q24H) PO SCH (08:05)
--- NOTE | 2019-06-20 12:35 | NUR ---
[facility] CONTACT: SW received return contact from [facility], Angelina Rivera at [phone], who reports concern for pt safety and ability to meet personal basic needs. She recommends LPS Conservatorship. CUAUHTEMOC explained deadlines and processes for LPS. Angelina requested an email explaining the steps she should take to assist the [facility] in moving forward with [facility] request. She reports pt cannot return to [facility] due to hx of behaviors that have caused eviction. Information sent to following email address: Renee Whitney, Retirement Benefits Specialist RADAR ENGINEER [id number] Supervised by Sincere Ramos, [id number]
--- NOTE | 2019-06-20 18:00 | NUR ---
NURSING PROGRESS NOTE: Legal hold: 5270 Client on involuntary status for GD. Report received from JACKIE Glez with use of SBAR. Why are they here: Pt is diagnosed with schizophrenia. Pt is unable to formulate a plan for food, correction or clothes. Pt reported to walk around the block for hours at at time and stare off into the distance. Pt had $130 in his pocket, but was found eating spoiled food from dumpster. Assessment What has happened this shift: Patient is observed sleeping at change of shift. He wakes just prior to breakfast and takes all of his medications. He states that he thinks they are helpful in treating his symptoms but does not elaborate. He balances his day between standing in the chowdhury, eating and sleeping. He is pleasant and friendly. S/I, H/I: Denies A/VH: Denies Sleep: 8NOC and rested during the day ADL's: Independent with prompting Group attendance: no Were meds taken: Yes Any med S/E: None observed nor reported Mental Status Exam Appearance: Disheveled, wearing street shirt and green scrub pants with nonskid socks Eye contact: direct Behavior: calm, friendly Speech: Clear, soft Mood: good Affect: Flat Thought process: Unable to determine Thought Content: Unable to determine Cognition: A&O to name, place Insight: Poor Judgment: Poor Interventions PRN's used: None Therapeutic interventions: 1:1 therapeutic assessment, active listening, medication administration/education/monitoring, maintained safe and supportive milieu, q15 min safety checks. Restraints/seclusion/emergency medication: N/A Justification of Continued Inpatient Treatment: Pt. unable to formulate a viable plan for food, correction and clothing.Continued therapeutic support and medication management needed to provide stabilization, prevent decompensation, improve coping mechanisms decreasing risk to patient and re-admittance.
[2019-06-20 20:00] VITALS: BP 114/69
[2019-06-20] MEDS: PALIPERIDONE 3 MG TAB.ER.24 PO SCH (21:13)
--- NOTE | 2019-06-21 01:49 | NUR ---
NURSING PROGRESS NOTE: Legal hold: 5270 Client on involuntary status for GD. Report received from JACKIE Clements with use of SBAR. Why are they here: Pt is diagnosed with schizophrenia. Pt is unable to formulate a plan for food, senior care or clothes. Pt reported to walk around the block for hours at at time and stare off into the distance. Pt had $130 in his pocket, but was found eating spoiled food from dumpster. Assessment What has happened this shift: Patient is self isolating and sleeping at shift change. Patient awakens easily. He is alert and oriented. Patient states "I'm having no thoughts at all." He sleeps with no pillow or blankets. Patient denies H/I, S/I, or hallucinations. Patient goes to the break room for snacks. His priorities are snacks and sleep. Patients affect is flat. Patient is exhibiting better eye contact, he is no longer shifting his weight from one foot to the other. Patient does leave room for snacks, he then returns to bed. Patient is medication compliant. The patient is advised that he is in a safe place. He exhibits understanding. S/I, H/I: Denies A/VH: Denies Sleep: Naps after shift change, sleeps during the night. ADL's: Independent with prompting. Group attendance: Not on days. Were meds taken: Patient is medication compliant. Any med S/E: None. Mental Status Exam Appearance: Disheveled, wearing street shirt and green scrub pants with nonskid socks Eye contact: Direct. Behavior: Quiet, friendly. Speech: Clear, soft, normal rate and rhythm. Mood: Happy. Affect: Flat Thought process: Focused on basic needs. Thought Content: Unable to determine Cognition: Alert to person, place, time, somewhat to situation. Insight: Poor. Judgment: Poor. Interventions PRN's used: None Therapeutic interventions: 1:1 therapeutic assessment, active listening, medication administration/education/monitoring, maintained safe and supportive milieu, q15 min safety checks. Restraints/seclusion/emergency medication: N/A Justification of Continued Inpatient Treatment: Pt. unable to formulate a viable plan for food, senior care and clothing.Continued therapeutic support and medication management needed to provide stabilization, prevent decompensation, improve coping mechanisms decreasing risk to patient and re-admittance.
[2019-06-21 07:34] VITALS: BP 121/84
[2019-06-21] MEDS: vitamin D (cholecalciferol) 1,000 unit tablet PO SCH (08:34)
[2019-06-21] MEDS: docusate sod 100mg capsule PO SCH ×2 (08:34→20:41)
[2019-06-21] MEDS: multivitamins, therapeutics tablet PO SCH (08:34)
[2019-06-21] MEDS: omega-3 acid ethyl esters 1GM capsule PO SCH (08:34)
[2019-06-21] MEDS: venlafaxine XR 75mg capsule (Q24H) PO SCH (08:34)
--- NOTE | 2019-06-21 17:57 | NUR ---
NURSING PROGRESS NOTE: Legal hold: 5270 Client on involuntary status for GD. Report received from Vannesa Griffin RN with use of SBAR. Why are they here: Pt is diagnosed with schizophrenia. Pt is unable to formulate a plan for food, alf or clothes. Pt reported to walk around the block for hours at at time and stare off into the distance. Pt had $130 in his pocket, but was found eating spoiled food from dumpster. Assessment What has happened this shift: Patient is observed sleeping at change of shift. He wakes easily for breakfast. After breakfast he returns to his room and takes his medications without issue. Patient nods his head and smiles when asked if he feels better. When told that he looks better than he did a week ago patient laughs and says ya, it was wild! Patient is occasionally observed standing in chowdhury as he was the shift prior. His demeanor is pleasant and he is friendly though he does not directly engage with others. He attends all meals in group room and then returns to his room. He reports feeling well, sleeping well and denies AV/H. S/I, H/I: Denies A/VH: Denies Sleep: 7.25hrs NOC and rested during the day ADL's: Independent with prompting. Group attendance: No Were meds taken: Patient is medication compliant. Any med S/E: None. Mental Status Exam Appearance: Disheveled, wearing street shirt and green scrub pants with nonskid socks Eye contact: Direct. Behavior: Quiet, friendly. Speech: Clear, soft, normal rate and rhythm. Mood: Happy. Affect: restricted with occasional brightness Thought process: linear Thought Content: Unable to determine Cognition: Alert to person, place, time, somewhat to situation. Insight: Poor. Judgment: Poor. Interventions PRN's used: None Therapeutic interventions: 1:1 therapeutic assessment, active listening, medication administration/education/monitoring, maintained safe and supportive milieu, q15 min safety checks. Restraints/seclusion/emergency medication: N/A Justification of Continued Inpatient Treatment: Pt. unable to formulate a viable plan for food, alf and clothing.Continued therapeutic support and medication management needed to provide stabilization, prevent decompensation, improve coping mechanisms decreasing risk to patient and re-admittance.
[2019-06-21 19:00] VITALS: BP 116/73
[2019-06-21] MEDS: PALIPERIDONE 3 MG TAB.ER.24 PO SCH (20:41)
--- NOTE | 2019-06-22 00:12 | NUR ---
NURSING PROGRESS NOTE: Legal hold: 5270 Client on involuntary status for GD. Report received from JACKIE Clements with use of SBAR. Why are they here: Pt is diagnosed with schizophrenia. Pt is unable to formulate a plan for food, senior care or clothes. Pt reported to walk around the block for hours at at time and stare off into the distance. Pt had $130 in his pocket, but was found eating spoiled food from dumpster. Assessment This patient is sleeping in bed at change of shift. As is his standard and practice he uses no pillows, sheets, or blankets. Patient awakens easily, and smiles. He answers all questions appropriately. He denies S/I or HI, he denies hallucinations. The patient gives short answers to questions. He makes direct eye contact now. Patient expresses no interest in socializing with other patients. He enjoys meals and snacks, thease ar S/I, H/I: Denies. A/VH: Denies. Sleep:Sleeping at shift change, will tally in am. ADL's: Independent with prompting. Group attendance: No. Were meds taken: Patient is medication compliant. Any med S/E: None. Mental Status Exam Appearance: Disheveled, wearing street shirt and green scrub pants with nonskid socks Eye contact: Direct. Behavior: Quiet, friendly. Speech: Clear, soft, normal rate and rhythm. Mood: Happy. Affect: restricted with occasional brightness Thought process: Linear Thought Content: Unable to determine Cognition: Alert to person, place, time, somewhat to situation. Insight: Poor. Judgment: Poor. Interventions PRN's used: None Therapeutic interventions: 1:1 therapeutic assessment, active listening, medication administration/education/monitoring, maintained safe and supportive milieu, q15 min safety checks. Restraints/seclusion/emergency medication: N/A Justification of Continued Inpatient Treatment: Pt. unable to formulate a viable plan for food, senior care and clothing.Continued therapeutic support and medication management needed to provide stabilization, prevent decompensation, improve coping mechanisms decreasing risk to patient and re-admittance.
[2019-06-22 08:00] VITALS: BP 115/68
[2019-06-22] MEDS: vitamin D (cholecalciferol) 1,000 unit tablet PO SCH (08:31)
[2019-06-22] MEDS: docusate sod 100mg capsule PO SCH ×2 (08:31→20:56)
[2019-06-22] MEDS: omega-3 acid ethyl esters 1GM capsule PO SCH (08:31)
[2019-06-22] MEDS: multivitamins, therapeutics tablet PO SCH (08:31)
[2019-06-22] MEDS: venlafaxine XR 75mg capsule (Q24H) PO SCH (08:31)
--- NOTE | 2019-06-22 15:43 | NUR ---
NURSING PROGRESS NOTE: Legal hold: 5270 Client on involuntary status for GD. Report received from GARRY Bonilla with use of SBAR. Why are they here: Pt is diagnosed with schizophrenia. Pt is unable to formulate a plan for food, fdc or clothes. Per admission note, pt reported to walk around the block for hours at at time and stare off into the distance. Pt had $130 in his pocket, but was found eating spoiled food from dumpster. Assessment What has happened this shift: The pt was awake and laying in bed at the change of shift. He was compliant with medication administration. During his assessment, he got up and stood beside his bed. As he stood he rocked side to side on each foot. He indicated he slept good. He denied depression, anxiety, A/V H, and SI. Most responses were either a head shake or one word answers. His affect was constricted. Pt isolated to his room during the day. S/I, H/I: Denies A/VH: Denies Sleep: Napped ADL's: Independent with prompting. Group attendance: No Were meds taken: Yes Any med S/E: None noted or reported Mental Status Exam Appearance: Disheveled, hair standing straight up Eye contact: Indirect Behavior: Pleasant and cooperative. Speech: Minimal speech, clear and soft Mood: Calm Affect: Constricted Thought process: Disorganized Thought Content: Unable to assess Cognition: Alert to person, place Insight: Poor. Judgment: Poor. Interventions PRN's used: None Therapeutic interventions: 1:1 therapeutic assessment, active listening, medication administration/education/monitoring, maintained safe and supportive milieu, q15 min safety checks. Restraints/seclusion/emergency medication: N/A Justification of Continued Inpatient Treatment: Pt. unable to formulate a viable plan for food, fdc and clothing.Continued therapeutic support and medication management needed to provide stabilization, prevent decompensation, improve coping mechanisms decreasing risk to patient and re-admittance.
[2019-06-22 19:00] VITALS: BP 121/77
[2019-06-22] MEDS: PALIPERIDONE 3 MG TAB.ER.24 PO SCH (20:57)
--- NOTE | 2019-06-23 00:55 | NUR ---
NURSING PROGRESS NOTE: Legal hold: 5270 Client on involuntary status for GD. Report received from JACKIE Clements with use of SBAR. Why are they here: Pt is diagnosed with schizophrenia. Pt is unable to formulate a plan for food, detention or clothes. Per admission note, pt reported to walk around the block for hours at at time and stare off into the distance. Pt had $130 in his pocket, but was found eating spoiled food from dumpster. Assessment Patient is sleeping on his bed post shift change. He had eaten his dinner prior to this. Patient awakens to voice and speaks to this sign writer hand. Patient exhibits brightening.Most answers are short. The patient is now using a light blanket but still no pillow. This patient when asked about his future states he does not know nor does he have a plan, he looks mystified. The patient prioritizes his meals and snacks. He is now asking to use the shower, this is done without prompting. S/I, H/I: Denies A/VH: Denies Sleep: Napped ADL's: Independent with prompting. Group attendance: No Were meds taken: Yes Any med S/E: None noted or reported Mental Status Exam Appearance: Disheveled, hair standing straight up Eye contact: Indirect Behavior: Pleasant and cooperative. Speech: Minimal speech, clear and soft Mood: Calm Affect: Constricted Thought process: Linear without a plan. Thought Content: Goal oriented for meals and sleep, occasional shower. Cognition: Alert to person, place, year, somewhat to situation. Insight: Poor. Judgment: Poor. Interventions PRN's used: None Therapeutic interventions: 1:1 therapeutic assessment, active listening, medication administration/education/monitoring, maintained safe and supportive milieu, q15 min safety checks. Restraints/seclusion/emergency medication: N/A Justification of Continued Inpatient Treatment: Pt. unable to formulate a viable plan for food, detention and clothing.Continued therapeutic support and medication management needed to provide stabilization, prevent decompensation, improve coping mechanisms decreasing risk to patient and re-admittance.
[2019-06-23] MEDS: omega-3 acid ethyl esters 1GM capsule PO SCH (07:29)
[2019-06-23] MEDS: multivitamins, therapeutics tablet PO SCH (07:29)
[2019-06-23] MEDS: venlafaxine XR 75mg capsule (Q24H) PO SCH (07:29)
[2019-06-23] MEDS: vitamin D (cholecalciferol) 1,000 unit tablet PO SCH (07:30)
[2019-06-23] MEDS: docusate sod 100mg capsule PO SCH ×2 (07:30→20:54)
[2019-06-23 07:47] VITALS: BP 112/78
--- NOTE | 2019-06-23 16:16 | NUR ---
NURSING PROGRESS NOTE: Osm[facility] Legal hold: 5270 Client on involuntary status for GD. Report received from Vannesa Griffin with use of SBAR. Why are they here: Pt is diagnosed with schizophrenia. Pt is unable to formulate a plan for food, snf or clothes. Per admission note, pt reported to walk around the block for hours at at time and stare off into the distance. Pt had $130 in his pocket, but was found eating spoiled food from dumpster. Assessment: What happened this shift: Patient was resting in bed with eyes closed to begin the shift. Woke and was compliant with am medications as well as assessment. Client is more verbal than last encounter and was smiling and making direct eye contact during the assessment process this am. Ate 100 percent of breakfast and also ate a sandwich directly after breakfast. Client returned to his room after morning meal and rested in his bed. Client was isolative to his room this afternoon with no behavioral issues noted. S/I, H/I: Denies A/VH: Denies Sleep: frequent periods of rest during shift ADL's: Independent with prompting. Group attendance: Were meds taken: Yes Any med S/E: None noted or reported Mental Status Exam Appearance: Disheveled Eye contact: Direct Behavior: Pleasant and cooperative. Speech: Minimal speech, clear and soft Mood: Calm Affect: Constricted Thought process: Linear without a plan. Thought Content: Goal oriented for meals and sleep, occasional shower. Cognition: Alert to person, place, year, somewhat to situation. Insight: Poor. Judgment: Poor. Interventions PRN's used: None Therapeutic interventions: 1:1 therapeutic assessment, active listening, medication administration/education/monitoring, maintained safe and supportive milieu, q15 min safety checks. Restraints/seclusion/emergency medication: N/A Justification of Continued Inpatient Treatment: Pt. unable to formulate a viable plan for food, snf and clothing.Continued therapeutic support and medication management needed to provide stabilization, prevent decompensation, improve coping mechanisms decreasing risk to patient and re-admittance
[2019-06-23 20:02] VITALS: BP 106/70
[2019-06-23] MEDS: PALIPERIDONE 3 MG TAB.ER.24 PO SCH (20:54)
--- NOTE | 2019-06-24 03:44 | NUR ---
NURSING PROGRESS NOTE: Legal hold: 5270 Client on involuntary status for GD. Report received from JACKIE Clements with use of SBAR. Why are they here: Pt is diagnosed with schizophrenia. Pt is unable to formulate a plan for food, fdc or clothes. Per admission note, pt reported to walk around the block for hours at at time and stare off into the distance. Pt had $130 in his pocket, but was found eating spoiled food from dumpster. Assessment: Patient is resting in bed. He responds appropriately. Well oriented. Medication compliant. Patient exhibits excitement in having conversation. Very linear. Patient denies S/I, H/I, or hallucinations. Brightens when discussing food or being discharged. Patient is medication compliant. S/I, H/I: Denies A/VH: Denies Sleep: Naps often. ADL's: Independent with prompting. Group attendance: None on day shift. Were meds taken: Yes. Any med S/E: None noted or reported Mental Status Exam Appearance: Disheveled Eye contact: Direct Behavior: Pleasant and cooperative. Speech: Minimal speech, clear and soft Mood: Calm, cooperative. Affect: Good. Thought process: Linear without a plan. Thought Content: Goal oriented for meals and sleep, occasional shower. Cognition: Alert to person, place, year, somewhat to situation. Insight: Poor. Judgment: Poor. Interventions PRN's used: None Therapeutic interventions: 1:1 therapeutic assessment, active listening, medication administration/education/monitoring, maintained safe and supportive milieu, q15 min safety checks. Restraints/seclusion/emergency medication: N/A Justification of Continued Inpatient Treatment: Pt. unable to formulate a viable plan for food, fdc and clothing.Continued therapeutic support and medication management needed to provide stabilization, prevent decompensation, improve coping mechanisms decreasing risk to patient and re-admittance
[2019-06-24 07:55] VITALS: BP 110/72
[2019-06-24] MEDS: vitamin D (cholecalciferol) 1,000 unit tablet PO SCH (07:56)
[2019-06-24] MEDS: multivitamins, therapeutics tablet PO SCH (07:56)
[2019-06-24] MEDS: docusate sod 100mg capsule PO SCH ×2 (07:57→20:48)
[2019-06-24] MEDS: omega-3 acid ethyl esters 1GM capsule PO SCH (07:57)
[2019-06-24] MEDS: venlafaxine XR 75mg capsule (Q24H) PO SCH (07:57)
--- NOTE | 2019-06-24 10:29 | NUR ---
Reassessment: Patient with good appetite, eating well, 75-100% of regular diet. LBM 06/21, documented as distended and constipated, patient is receiving BID colace. Documented weights show an increase of 25 lbs since admission about three weeks ago, weights were taken with both standing scale and bedscale, possible weigh error. On standing scale alone patient shows a 17 lbs increase. Will continue to follow. Recommend: 1. Continue regular diet 2. Monitor need for bowel care 3. Encourage PO intake 4. Weekly weights Addendum: 06/24/19 at [address] Amended: Links added.
--- NOTE | 2019-06-24 16:57 | NUR ---
NURSING PROGRESS NOTE: Legal hold: 5270 Client on involuntary status for GD. Report received from Irene with use of SBAR. Why are they here: Pt is diagnosed with schizophrenia. Pt is unable to formulate a plan for food, snf or clothes. Per admission note, pt reported to walk around the block for hours at at time and stare off into the distance. Pt had $130 in his pocket, but was found eating spoiled food from dumpster. Assessment: What happened this shift: Patient was asleep at change of shift and up for breakfast. Patient was later walking down the [place] and patient smiled and waved to RN with good eye contact. Patient does not go to groups but took naps. RN did 1:1 in patient's room and patient denies suicidal ideation. Patient denies hearing voices. Patient slept through snack and awoke later and approached RN and asked for a snack. RN gave patient a burrito. Patient smiled at RN. Patient is more talkative and makes good eye contact. S/I, H/I: Denies A/VH: Denies Sleep: frequent periods of rest during shift ADL's: Needs prompting Group attendance: None Were meds taken: Yes Any med S/E: None noted or reported Mental Status Exam Appearance: Disheveled Eye contact: Direct Behavior: Pleasant and cooperative. Speech: Minimal speech Mood: Calm Affect: Flat and Pleasant at times Thought process: Linear without a plan. Thought Content: Goal oriented for meals and sleep, occasional shower. Cognition: Alert to person, place, year, somewhat to situation. Insight: Poor. Judgment: Poor. Interventions PRN's used: None Therapeutic interventions: 1:1 therapeutic assessment, active listening, medication administration/education/monitoring, maintained safe and supportive milieu, q15 min safety checks. Restraints/seclusion/emergency medication: N/A Justification of Continued Inpatient Treatment: Pt. unable to formulate a viable plan for food, snf and clothing.Continued therapeutic support and medication management needed to provide stabilization, prevent decompensation, improve coping mechanisms decreasing risk to patient and re-admittance
[2019-06-24 20:00] VITALS: BP 109/73
[2019-06-24] MEDS: PALIPERIDONE 3 MG TAB.ER.24 PO SCH (20:49)
--- NOTE | 2019-06-24 23:56 | NUR ---
NURSING PROGRESS NOTE: Legal hold: 5270 Client on involuntary status for GD. Report received from Divina with use of SBAR. Why are they here: Pt is diagnosed with schizophrenia. Pt is unable to formulate a plan for food, senior care or clothes. Per admission note, pt reported to walk around the block for hours at at time and stare off into the distance. Pt had $130 in his pocket, but was found eating spoiled food from dumpster. Assessment: What happened this shift: Patient was asleep at change of shift and up for snack. Patient does not go to groups but took naps. 1:1 in patient's room and patient denies suicidal ideation. Patient denies hearing voices. Patient was polite and cooperative with medications. Patient is more talkative and makes good eye contact. S/I, H/I: Denies A/VH: Denies Sleep: frequent periods of rest during shift ADL's: Needs prompting Group attendance: None Were meds taken: Yes Any med S/E: None noted or reported Mental Status Exam Appearance: Disheveled Eye contact: Direct Behavior: Pleasant and cooperative. Speech: Minimal speech Mood: Calm Affect: Flat and Pleasant at times Thought process: Linear without a plan. Thought Content: Goal oriented for meals and sleep, occasional shower. Cognition: Alert to person, place, year, somewhat to situation. Insight: Poor. Judgment: Poor. Interventions PRN's used: None Therapeutic interventions: 1:1 therapeutic assessment, active listening, medication administration/education/monitoring, maintained safe and supportive milieu, q15 min safety checks. Restraints/seclusion/emergency medication: N/A Justification of Continued Inpatient Treatment: Pt. unable to formulate a viable plan for food, senior care and clothing.Continued therapeutic support and medication management needed to provide stabilization, prevent decompensation, improve coping mechanisms decreasing risk to patient and re-admittance
[2019-06-25 07:20] VITALS: BP 116/71
[2019-06-25] MEDS: omega-3 acid ethyl esters 1GM capsule PO SCH (08:00)
[2019-06-25] MEDS: vitamin D (cholecalciferol) 1,000 unit tablet PO SCH (09:07)
[2019-06-25] MEDS: multivitamins, therapeutics tablet PO SCH (09:08)
[2019-06-25] MEDS: docusate sod 100mg capsule PO SCH ×2 (09:08→19:57)
[2019-06-25] MEDS: venlafaxine XR 75mg capsule (Q24H) PO SCH (09:08)
--- NOTE | 2019-06-25 14:08 | NUR ---
NURSING PROGRESS NOTE: Legal hold: 5270 Client on involuntary status for GD. Report received from Amaris with use of SBAR. Why are they here: Pt is diagnosed with schizophrenia. Pt is unable to formulate a plan for food, [facility] or clothes. Per admission note, pt reported to walk around the block for hours at at time and stare off into the distance. Pt had $130 in his pocket, but was found eating spoiled food from dumpster. Assessment: What happened this shift: Patient was asleep at change of shift and up for breakfast. RN did 1:1 in patient's room and patient denies suicidal ideation. Patient denies hearing voices. Patient does not go to groups but sleeps instead. Patient is pleasant and answers questions with short answers. Discharge plan is to send hime to [facility]. S/I, H/I: Denies A/VH: Denies Sleep: frequent periods of rest during shift ADL's: Needs prompting Group attendance: None Were meds taken: Yes Any med S/E: None noted or reported Mental Status Exam Appearance: Disheveled Eye contact: Direct Behavior: Pleasant and cooperative. Speech: Minimal speech Mood: Calm Affect: Flat and Pleasant at times Thought process: Linear without a plan. Thought Content: Goal oriented for meals and sleep, occasional shower. Cognition: Alert to person, place, year, somewhat to situation. Insight: Poor. Judgment: Poor. Interventions PRN's used: None Therapeutic interventions: 1:1 therapeutic assessment, active listening, medication administration/education/monitoring, maintained safe and supportive milieu, q15 min safety checks. Restraints/seclusion/emergency medication: N/A Justification of Continued Inpatient Treatment: Pt. unable to formulate a viable plan for food, [facility] and clothing.Continued therapeutic support and medication management needed to provide stabilization, prevent decompensation, improve coping mechanisms decreasing risk to patient and re-admittance
[2019-06-25] MEDS: PALIPERIDONE 3 MG TAB.ER.24 PO SCH (19:59)
[2019-06-25 20:09] VITALS: BP 123/68
--- NOTE | 2019-06-25 21:44 | NUR ---
NURSING PROGRESS NOTE: Legal hold: 5270 Client on involuntary status for GD. Report received from Starr with use of SBAR. Why are they here: Pt is diagnosed with schizophrenia. Pt is unable to formulate a plan for food, nursing home or clothes. Per admission note, pt reported to walk around the block for hours at at time and stare off into the distance. Pt had $130 in his pocket, but was found eating spoiled food from dumpster. Assessment: What happened this shift: Patient was asleep at change of shift and up for Snack. Mat Sewer did 1:1 in patient's room and patient denies suicidal ideation. Patient denies hearing voices. Patient does not go to groups but sleeps instead. Patient is pleasant and answers questions with short answers. Discharge plan is to send hime to [facility]. S/I, H/I: Denies A/VH: Denies Sleep: frequent periods of rest during shift ADL's: Needs prompting Group attendance: None Were meds taken: Yes Any med S/E: None noted or reported Mental Status Exam Appearance: Disheveled Eye contact: Direct Behavior: Pleasant and cooperative. Speech: Minimal speech Mood: Calm Affect: Flat and Pleasant at times Thought process: Linear without a plan. Thought Content: Goal oriented for meals and sleep, occasional shower. Cognition: Alert to person, place, year, somewhat to situation. Insight: Poor. Judgment: Poor. Interventions PRN's used: None Therapeutic interventions: 1:1 therapeutic assessment, active listening, medication administration/education/monitoring, maintained safe and supportive milieu, q15 min safety checks. Restraints/seclusion/emergency medication: N/A Justification of Continued Inpatient Treatment: Pt. unable to formulate a viable plan for food, nursing home and clothing.Continued therapeutic support and medication management needed to provide stabilization, prevent decompensation, improve coping mechanisms decreasing risk to patient and re-admittance
[2019-06-26 08:03] VITALS: BP 123/79
[2019-06-26] MEDS: vitamin D (cholecalciferol) 1,000 unit tablet PO SCH (08:06)
[2019-06-26] MEDS: omega-3 acid ethyl esters 1GM capsule PO SCH (08:07)
[2019-06-26] MEDS: docusate sod 100mg capsule PO SCH ×2 (08:07→20:19)
[2019-06-26] MEDS: multivitamins, therapeutics tablet PO SCH (08:07)
[2019-06-26] MEDS: venlafaxine XR 75mg capsule (Q24H) PO SCH (08:08)
--- NOTE | 2019-06-26 11:06 | NUR ---
DISCHARGE PLANNING: Spoke with Leigh Ann at [facility], she reports that they will come interview Osmel tomorrow 06/26 @ 1300 for possible placement
--- NOTE | 2019-06-26 14:51 | NUR ---
NURSING PROGRESS NOTE: Legal hold: 5270 Client on involuntary status for GD. Report received from Amaris with use of SBAR. Why are they here: Pt is diagnosed with schizophrenia. Pt is unable to formulate a plan for food, longterm or clothes. Per admission note, pt reported to walk around the block for hours at at time and stare off into the distance. Pt had $130 in his pocket, but was found eating spoiled food from dumpster. Assessment: What happened this shift: Patient was asleep at change of shift and up for breakfast. RN did 1:1 in patient's room and patient denies suicidal ideation. Patient denies hearing voices. Patient does not go to groups but sleeps instead. Patient is pleasant and answers questions with short answers. Patient was pleasant today. [facility] to evaluate patient at 1300 for possible placement. S/I, H/I: Denies A/VH: Denies Sleep: frequent periods of rest during shift ADL's: Needs prompting Group attendance: None Were meds taken: Yes Any med S/E: None noted or reported Mental Status Exam Appearance: Disheveled Eye contact: Direct Behavior: Pleasant and cooperative. Speech: Minimal speech Mood: Calm Affect: Flat and Pleasant at times Thought process: Linear without a plan. Thought Content: Goal oriented for meals and sleep, occasional shower. Cognition: Alert to person, place, year, somewhat to situation. Insight: Poor. Judgment: Poor. Interventions PRN's used: None Therapeutic interventions: 1:1 therapeutic assessment, active listening, medication administration/education/monitoring, maintained safe and supportive milieu, q15 min safety checks. Restraints/seclusion/emergency medication: N/A Justification of Continued Inpatient Treatment: Pt. unable to formulate a viable plan for food, longterm and clothing.Continued therapeutic support and medication management needed to provide stabilization, prevent decompensation, improve coping mechanisms decreasing risk to patient and re-admittance
--- NOTE | 2019-06-26 16:17 | NUR ---
Updated Progress Note: Angelina from [place] came to see patient with RN also at table. Patient recognized Angelina, said her name and smiled. Angelina went on to explain some release documents so she would be able to speak to patient's Payee, [facility], [facility] and other entities involved with patient care. Patient agreed as the explanation was given 3 times and each time patient agreed. Patient said he would like to go back to [facility] and live. Angelina also explained conservatorship several times to patient. Patient wants to live at [facility] and patient appeared to understand that he must be conserved for that to happen. The meeting ended and patient went to his room. RN took Angelina from [place] to speak to Lilly, [facility] Nurse Emergency Room Technician and Director. Lilly were explaining the 5270, 5150, 47 day hold process while trying to get patient under a conservatorship. Angelina was going to speak to her administrators and [facility] to see how they would be able to conserve this patient who is so gravely disabled. Angelina will get back to Lilly.
[2019-06-26 19:46] VITALS: BP 113/71
[2019-06-26] MEDS: PALIPERIDONE 3 MG TAB.ER.24 PO SCH (20:18)
--- NOTE | 2019-06-26 23:06 | NUR ---
NURSING PROGRESS NOTE: Legal hold: 5270 Client on involuntary status for GD. Report received from Obi with use of SBAR. Why are they here: Pt is diagnosed with schizophrenia. Pt is unable to formulate a plan for food, prison or clothes. Per admission note, pt reported to walk around the block for hours at at time and stare off into the distance. Pt had $130 in his pocket, but was found eating spoiled food from dumpster. Assessment: What happened this shift: Patient was asleep at change of shift . GREY INSPECTOR did 1:1 in patient's room and patient denies suicidal ideation. Patient denies hearing voices. Patient does not go to groups but sleeps instead. Patient is pleasant and answers questions with short answers. Patient was pleasant today. [facility] sending Leigh Ann to evaluate patient for possible placement. S/I, H/I: Denies A/VH: Denies Sleep: frequent periods of rest during shift ADL's: Needs prompting Group attendance: None Were meds taken: Yes Any med S/E: None noted or reported Mental Status Exam Appearance: Disheveled Eye contact: Direct Behavior: Pleasant and cooperative. Speech: Minimal speech Mood: Calm Affect: Flat and Pleasant at times Thought process: Linear without a plan. Thought Content: Goal oriented for meals and sleep, occasional shower. Cognition: Alert to person, place, year, somewhat to situation. Insight: Poor. Judgment: Poor. Interventions PRN's used: None Therapeutic interventions: 1:1 therapeutic assessment, active listening, medication administration/education/monitoring, maintained safe and supportive milieu, q15 min safety checks. Restraints/seclusion/emergency medication: N/A Justification of Continued Inpatient Treatment: Pt. unable to formulate a viable plan for food, prison and clothing.Continued therapeutic support and medication management needed to provide stabilization, prevent decompensation, improve coping mechanisms decreasing risk to patient and re-admittance
[2019-06-27 07:36] VITALS: BP 98/69
[2019-06-27] MEDS: omega-3 acid ethyl esters 1GM capsule PO SCH (08:08)
[2019-06-27] MEDS: docusate sod 100mg capsule PO SCH ×2 (08:08→21:12)
[2019-06-27] MEDS: multivitamins, therapeutics tablet PO SCH (08:08)
[2019-06-27] MEDS: vitamin D (cholecalciferol) 1,000 unit tablet PO SCH (08:08)
[2019-06-27] MEDS: venlafaxine XR 75mg capsule (Q24H) PO SCH (08:08)
--- NOTE | 2019-06-27 14:42 | NUR ---
DISCHARGE PLANNING Jessica Rivera from [place] came to interview patient for housing options and possible LPS conservatorship. Patient has been taking medications and is receptive to [facility]. [facility] will not conserve patient because he is accepting medications at this time and engaged in treatment. Patient would be unable to care for self if not placed in supportive environment where medications are given and food is provided. [place] reports they have funding available to pay for [facility] if accepted. Patient was interviewed by [facility] today at 1 pm and they will provide a response regarding acceptance by Monday07/01/19. He does not have to be LPS conserved to be placed at the facility.
--- NOTE | 2019-06-27 15:00 | NUR ---
NURSING PROGRESS NOTE: Legal hold: 5270 Client on involuntary status for GD. Report received from Amaris with use of SBAR. Why are they here: Pt is diagnosed with schizophrenia. Pt is unable to formulate a plan for food, alf or clothes. Per admission note, pt reported to walk around the block for hours at at time and stare off into the distance. Pt had $130 in his pocket, but was found eating spoiled food from dumpster. Assessment: What happened this shift: Patient is observed sleeping at change of shift. He wakes prior to breakfast and joins others in the group room for warm drinks. He is friendly as he smiles and nodds at this RN. He is seen occasionally about the unit throughout the day. He does not attend groups and rather rests in his room. He takes his medications without issue. Patient meets with [facility] staff to discuss possible placement. Staff reports they are undecided at this time but hopeful he will be placed with them. S/I, H/I: none reported A/VH: none reported Sleep: 10.25hrs NOC and rested during the day ADL's: Needs prompting Group attendance: None Were meds taken: Yes Any med S/E: None noted or reported Mental Status Exam Appearance: Disheveled Eye contact: Direct Behavior: Pleasant and cooperative. Speech: Minimal speech, soft tone Mood: calm and content Affect: restricted with brightening Thought process: Linear Thought Content: Goal oriented for meals and sleep Cognition: Alert to person, place, year, somewhat to situation. Insight: Poor. Judgment: Poor. Interventions PRN's used: None Therapeutic interventions: 1:1 assessment, establishment of rapport, maintained safe therapeutic milieu, provided active listening with positive feedback, provided medication education and monitored for effects, monitored for change in behavior and provided needed interventions. Q 15 minute safety checks. Restraints/seclusion/emergency medication: N/A Justification of Continued Inpatient Treatment: Pt. unable to formulate a viable plan for food, alf and clothing.Continued therapeutic support and medication management needed to provide stabilization, prevent decompensation, improve coping mechanisms decreasing risk to patient and re-admittance.
[2019-06-27 20:00] VITALS: BP 123/69
[2019-06-27] MEDS: PALIPERIDONE 3 MG TAB.ER.24 PO SCH (21:12)
--- NOTE | 2019-06-28 00:26 | NUR ---
NURSING PROGRESS NOTE: Legal hold: 5270 Exp 07/16 @ 1525 Client on involuntary status for GD. Report received from [facility] with use of SBAR. Why are they here: Pt is diagnosed with schizophrenia. Pt is unable to formulate a plan for food, usp or clothes. Per admission note, pt reported to walk around the block for hours at at time and stare off into the distance. Pt had $130 in his pocket, but was found eating spoiled food from dumpster. Assessment: What happened this shift: Pt sleeping in bed at shift change no distress noted. Pt remains in bed, but is up for HS snack. Pt is woken again at 2100 for medications. Pt is cooperative and compliant with 1:1 assessment and medication. Pt is non verbal this shift, but nods head to questions. Pt denies SI, A/VH. When asked about the [facility] interview and how it went, pt shakes head yes. Pt returns to be after med pass. S/I, H/I: Pt denies. A/VH: Pt denies. None observed Sleep: See sleep assessment notation. Pt in bed asleep most of shift. ADL's: Needs prompting. 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 Were meds taken: Medication compliant. Any med S/E: None noted or reported Mental Status Exam Appearance: Disheveled Eye contact: Direct Behavior: Pleasant, cooperative, isolative to self. Speech: Minimal speech Mood: Calm, cooperative Affect: Flat Thought process: Linear without a plan. Thought Content: Goal oriented for meals and sleep. Cognition: Alert to person, place, year, somewhat to situation. Insight: Poor. Judgment: Poor. Interventions PRN's used: None Therapeutic interventions: 1:1 therapeutic assessment, active listening, medication administration/education/monitoring, maintained safe and supportive milieu, q15 min safety checks. Restraints/seclusion/emergency medication: N/A Justification of Continued Inpatient Treatment: Pt. unable to formulate a viable plan for food, usp and clothing.Continued therapeutic support and medication management needed to provide stabilization, prevent decompensation, improve coping mechanisms decreasing risk to patient and re-admittance
[2019-06-28 07:27] VITALS: BP 115/74
[2019-06-28] MEDS: multivitamins, therapeutics tablet PO SCH (07:29)
[2019-06-28] MEDS: docusate sod 100mg capsule PO SCH ×2 (07:29→20:27)
[2019-06-28] MEDS: omega-3 acid ethyl esters 1GM capsule PO SCH (07:30)
[2019-06-28] MEDS: vitamin D (cholecalciferol) 1,000 unit tablet PO SCH (07:30)
[2019-06-28] MEDS: venlafaxine XR 75mg capsule (Q24H) PO SCH (07:32)
--- NOTE | 2019-06-28 14:50 | NUR ---
NURSING PROGRESS NOTE: [facility] Legal hold: 5270 Exp 07/16 @ 1525 Client on involuntary status for GD. Report received from [facility] with use of SBAR. Why are they here: Pt is diagnosed with schizophrenia. Pt is unable to formulate a plan for food, long-term or clothes. Per admission note, pt reported to walk around the block for hours at at time and stare off into the distance. Pt had $130 in his pocket, but was found eating spoiled food from dumpster. Assessment: What happened this shift: Client was resting in bed with eyes closed to start shift. Respirations were even, unlabored. Client woke for medications and assessment and was compliant with both. He has no somatic complaints and is not a behavioral issue as of this writing. Client appears to be hungry at frequent intervals and he is supplemented with snacks. He has double meat portions for meals and consumes 100 percent of his meals. Client was on unit and socializing with Staff as well as peer group. After lunch, client went to his room where he is currently S/I, H/I: Pt denies. A/VH: Pt denies. None observed Sleep: See sleep assessment notation. ADL's: Needs prompting. Group attendance: not today Were meds taken: Medication compliant. Any med S/E: None noted or reported Mental Status Exam Appearance: Disheveled Eye contact: Direct Behavior: Pleasant, cooperative, isolative to self. Speech: Minimal speech Mood: Calm, cooperative Affect: Flat Thought process: Linear without a plan. Thought Content: Goal oriented for meals and sleep. Cognition: Alert to person, place, year, somewhat to situation. Insight: Poor. Judgment: Poor. Interventions PRN's used: None Therapeutic interventions: 1:1 therapeutic assessment, active listening, medication administration/education/monitoring, maintained safe and supportive milieu, q15 min safety checks. Restraints/seclusion/emergency medication: N/A Justification of Continued Inpatient Treatment: Pt. unable to formulate a viable plan for food, long-term and clothing.Continued therapeutic support and medication management needed to provide stabilization, prevent decompensation, improve coping mechanisms decreasing risk to patient and re-admittance
[2019-06-28 20:00] VITALS: BP 112/71
[2019-06-28] MEDS: PALIPERIDONE 3 MG TAB.ER.24 PO SCH (20:27)
--- NOTE | 2019-06-29 00:17 | NUR ---
NURSING PROGRESS NOTE: Legal hold: 5270 Exp 07/16 @ 1525 Client on involuntary status for GD. Report received from [facility] with use of SBAR. Why are they here: Pt is diagnosed with schizophrenia. Pt is unable to formulate a plan for food, custodial or clothes. Per admission note, pt reported to walk around the block for hours at at time and stare off into the distance. Pt had $130 in his pocket, but was found eating spoiled food from dumpster. Assessment: What happened this shift: Pt resting in bed at shift change, no acute distress noted. Pt remains in bed until he is woken for HS snack and then for medication. Pt again is nonverbal with this commercial insurance underwriter, but responds with head nods. When asked if he had a bowel movement today, pt nods yes. Pt is compliant and cooperative with all requests. Pt remains in bed as of this writing, will continue to monitor. S/I, H/I: Pt denies. A/VH: Pt denies. None observed Sleep: See sleep assessment notation. Pt in bed asleep most of shift. ADL's: Needs prompting. 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 Were meds taken: Medication compliant. Any med S/E: None noted or reported Mental Status Exam Appearance: Disheveled Eye contact: Direct Behavior: Pleasant, cooperative, isolative to self. Speech: Non verbal, but head nods this shift. Mood: Calm, cooperative Affect: Flat Thought process: Linear without a plan. Thought Content: Goal oriented for meals and sleep. Cognition: Alert to person, place. Insight: Poor. Judgment: Poor. Interventions PRN's used: None Therapeutic interventions: 1:1 therapeutic assessment, active listening, medication administration/education/monitoring, maintained safe and supportive milieu, q15 min safety checks. Restraints/seclusion/emergency medication: N/A Justification of Continued Inpatient Treatment: Pt. unable to formulate a viable plan for food, custodial and clothing.Continued therapeutic support and medication management needed to provide stabilization, prevent decompensation, improve coping mechanisms decreasing risk to patient and re-admittance
[2019-06-29] MEDS: omega-3 acid ethyl esters 1GM capsule PO SCH (07:59)
[2019-06-29] MEDS: multivitamins, therapeutics tablet PO SCH (07:59)
[2019-06-29] MEDS: vitamin D (cholecalciferol) 1,000 unit tablet PO SCH (07:59)
[2019-06-29] MEDS: docusate sod 100mg capsule PO SCH ×2 (07:59→20:18)
[2019-06-29] MEDS: venlafaxine XR 75mg capsule (Q24H) PO SCH (07:59)
[2019-06-29 08:00] VITALS: BP 103/67
--- NOTE | 2019-06-29 15:51 | NUR ---
NURSING PROGRESS NOTE: Legal hold: 5270 Exp 07/16 @ 1525 Client on involuntary status for GD. Report received from [facility] with use of SBAR. Why are they here: Pt is diagnosed with schizophrenia. Pt is unable to formulate a plan for food, nursing home or clothes. Per admission note, pt reported to walk around the block for hours at at time and stare off into the distance. Pt had $130 in his pocket, but was found eating spoiled food from dumpster. Assessment: What happened this shift: Pt up for breakfast. Pt denied depression, anxiety, SI/HI/AH/VH. Pt was shifting weight back and forth from left foot to right foot rapidly during the assessment, appeared restless. Asked pt if he was feeling as though he could not stand still. Pt denied feeling this way, pt did not believe it was a medication side effect. Reported observation to Dr Gomes who felt it was probably a mannerism. Pt is pleasant, cooperative, quiet, and isolative to self. Pt showered today. S/I, H/I: Pt denies. A/VH: Pt denies, does not appear to be responding to internal stimuli. Sleep: Slept 9 hours per noc shift report ADL's: Independent, needs encouragement at times, showered today. Group attendance: No groups this morning. Were meds taken: Yes Any med S/E: appears restless with frequent shifting of weight from leg to leg, pt denies feeling restless Mental Status Exam Appearance: Disheveled, hair sticking up Eye contact: Good Behavior: Pleasant, cooperative, isolative to self. Speech: Quiet, selectively mute Mood: good Affect: somewhat restricted Thought process: Linear Thought Content: Pt does not share many thoughts or feelings, does not believe his restless legs are a medication side effect. Cognition: A/O X 2 Insight: Poor. Judgment: Poor. Interventions PRN's used: None Therapeutic interventions: 1:1 assessment, encouragement to express thoughts and feelings, encouragement to perform personal hygiene, medication administration/education/monitoring, Q15 min safety checks. Restraints/seclusion/emergency medication: N/A Justification of Continued Inpatient Treatment: Pt unable to formulate a viable plan for food, nursing home and clothing. Continued therapeutic support and medication adjustment/management needed to provide stabilization, prevent decompensation, improve coping mechanisms decreasing risk to patient and re-admittance. Dr Gomes plans to increase antidepressant Effexor up to 300 mg in a few days.
[2019-06-29 19:00] VITALS: BP 120/71
[2019-06-29] MEDS: PALIPERIDONE 3 MG TAB.ER.24 PO SCH (20:18)
--- NOTE | 2019-06-29 23:46 | NUR ---
NURSING PROGRESS NOTE: Legal hold: 5270 Exp 07/16 @ 1525 Client on involuntary status for GD. Report received from [facility] with use of SBAR. Why are they here: Pt is diagnosed with schizophrenia. Pt is unable to formulate a plan for food, care home or clothes. Per admission note, pt reported to walk around the block for hours at at time and stare off into the distance. Pt had $130 in his pocket, but was found eating spoiled food from dumpster. Assessment: What happened this shift: Pt again is sleeping in bed at shift change. Pt is easily aroused, even unlabored breathing observed. Pt remains in bed until he is woken for snack. Pt is pleasant and cooperative, takes medications without incident. Pt is nonverbal with this automotive service writer. Pt has no somatic complaints. Pt is cooperative with 1:1 assessment. S/I, H/I: Pt denies. A/VH: Pt denies. None observed Sleep: See sleep assessment notation. ADL's: Needs prompting. 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 Were meds taken: Medication compliant. Any med S/E: None noted or reported Mental Status Exam Appearance: Disheveled Eye contact: Direct Behavior: Pleasant, cooperative, isolative to self. Speech: Non verbal, but head nods this shift. Mood: Agreeable Affect: Restricted Thought process: Linear without a plan. Thought Content: Pt doesn't speak, but will respond to questions. Pt becomes animated for food. Cognition: A&O x2 Insight: Poor. Judgment: Poor. Interventions PRN's used: None Therapeutic interventions: 1:1 therapeutic assessment, active listening, medication administration/education/monitoring, maintained safe and supportive milieu, q15 min safety checks. Restraints/seclusion/emergency medication: N/A Justification of Continued Inpatient Treatment: Pt. unable to formulate a viable plan for food, care home and clothing.Continued therapeutic support and medication management needed to provide stabilization, prevent decompensation, improve coping mechanisms decreasing risk to patient and re-admittance
[2019-06-30] MEDS: venlafaxine XR 75mg capsule (Q24H) PO SCH (07:51)
[2019-06-30] MEDS: omega-3 acid ethyl esters 1GM capsule PO SCH (07:51)
[2019-06-30] MEDS: multivitamins, therapeutics tablet PO SCH (07:51)
[2019-06-30] MEDS: vitamin D (cholecalciferol) 1,000 unit tablet PO SCH (07:51)
[2019-06-30] MEDS: docusate sod 100mg capsule PO SCH ×2 (07:51→20:26)
[2019-06-30 08:00] VITALS: BP 98/65
--- NOTE | 2019-06-30 14:16 | NUR ---
[facility] PROGRESS NOTE: Legal hold: 5270 Exp 07/16 @ 1525 Client on involuntary status for GD. Report received from [facility] with use of SBAR. Why are they here: Pt is diagnosed with schizophrenia. Pt is unable to formulate a plan for food, assisted or clothes. Per admission note, pt reported to walk around the block for hours at at time and stare off into the distance. Pt had $130 in his pocket, but was found eating spoiled food from dumpster. Assessment: What happened this shift: Pt is up for meals, does some pacing in the chowdhury, naps frequently throughout the dayl S/I, H/I: Pt denies. A/VH: Pt denies, does not appear to be responding to internal stimuli. Sleep: Slept 9 hours per noc shift report ADL's: Independent, needs encouragement at times, showered today. Group attendance: No groups this morning. Were meds taken: Yes Any med S/E: appears restless with frequent shifting of weight from leg to leg, pt denies feeling restless Mental Status Exam Appearance: Disheveled, hair sticking up Eye contact: Good Behavior: Pleasant, cooperative, isolative to self. Speech: Quiet, selectively mute Mood: good Affect: somewhat restricted Thought process: Linear Thought Content: Pt does not share many thoughts or feelings, does not believe his restless legs are a medication side effect. Cognition: A/O X 2 Insight: Poor. Judgment: Poor. Interventions PRN's used: None Therapeutic interventions: 1:1 assessment, encouragement to express thoughts and feelings, encouragement to perform personal hygiene, medication administration/education/monitoring, Q15 min safety checks. Restraints/seclusion/emergency medication: N/A Justification of Continued Inpatient Treatment: Pt unable to formulate a viable plan for food, assisted and clothing. Continued therapeutic support and medication adjustment/management needed to provide stabilization, prevent decompensation, improve coping mechanisms decreasing risk to patient and re-admittance. Dr Gomes plans to increase antidepressant Effexor up to 300 mg in a few days. Addendum: 06/30/19 at 1417 by Angela Jones RN (Lee) PLEASE DISREGARD NOTE, SAVED ACCIDENTLY BEFORE COMPLETED. SEE NEXT NOTE.
--- NOTE | 2019-06-30 14:17 | NUR ---
06/30/19 NURSING PROGRESS NOTE: Legal hold: 5270 Exp 07/16 @ 1525 Client on involuntary status for GD. Report received from [facility] with use of SBAR. Why are they here: Pt is diagnosed with schizophrenia. Pt is unable to formulate a plan for food, senior care or clothes. Per admission note, pt reported to walk around the block for hours at at time and stare off into the distance. Pt had $130 in his pocket, but was found eating spoiled food from dumpster. Assessment: What happened this shift: Pt is up for meals, does some pacing in the chowdhury, naps frequently throughout the day. Pt is quiet, isolative to self and avoidant although he is pleasant and cooperative with medications and assessments. Pt denies depression, anxiety, SI/HI/AH/VH though he appears anxious and restless at times. Pt continues to appear to have restless legs though denies having them as he will shift weight back and forth on feet and lift feet feet up off the floor while doing so. S/I, H/I: Pt denies. A/VH: Pt denies, does not appear to be responding to internal stimuli. Sleep: Slept all night per noc shift report, naps frequently throughout the day. ADL's: Independent, needs encouragement at times for personal hygiene. Group attendance: No groups this morning. Were meds taken: Yes Any med S/E: appears restless with frequent shifting of weight from leg to leg, pt denies feeling restless Mental Status Exam Appearance: Disheveled, hair sticking up Eye contact: Good Behavior: Pleasant, cooperative, avoidant/isolative to self. Speech: Quiet, selectively mute Mood: good Affect: anxous, restricted Thought process: Linear Thought Content: Pt does not share many thoughts or feelings, does not believe his restless legs are a medication side effect. Cognition: A/O X 2 Insight: Poor. Judgment: Poor. Interventions PRN's used: None Therapeutic interventions: 1:1 assessment, encouragement to express thoughts and feelings, encouragement to perform personal hygiene, medication administration/education/monitoring, Q15 min safety checks. Restraints/seclusion/emergency medication: N/A Justification of Continued Inpatient Treatment: Pt unable to formulate a viable plan for food, senior care and clothing. Continued therapeutic support and medication adjustment/management needed to provide stabilization, prevent decompensation, improve coping mechanisms decreasing risk to patient and re-admittance. Dr Gomes plans to increase antidepressant Effexor up to 300 mg tomorrow.
[2019-06-30 19:57] VITALS: BP 117/63
[2019-06-30] MEDS: PALIPERIDONE 3 MG TAB.ER.24 PO SCH (20:26)
--- NOTE | 2019-06-30 22:35 | NUR ---
06/30/19 NURSING PROGRESS NOTE: Legal hold: 5270 Exp 07/16 @ 1525 Client on involuntary status for GD. Report received from [facility] with use of SBAR. Why are they here: Pt is diagnosed with schizophrenia. Pt is unable to formulate a plan for food, residential or clothes. Per admission note, pt reported to walk around the block for hours at at time and stare off into the distance. Pt had $130 in his pocket, but was found eating spoiled food from dumpster. Assessment: What happened this shift: Pt is up for snack, does some pacing in the chowdhury, Pt is quiet, isolative to self and avoidant although he is pleasant and cooperative with medications and assessments. Pt denies depression, anxiety, SI/HI/AH/VH though he appears anxious and restless at times. Pt continues to appear to have restless legs though denies having them as he will shift weight back and forth on feet and lift feet feet up off the floor while doing so. S/I, H/I: Pt denies. A/VH: Pt denies, does not appear to be responding to internal stimuli. Sleep: Slept all night per noc shift report, naps frequently throughout the day. ADL's: Independent, needs encouragement at times for personal hygiene. Group attendance: No groups this morning. Were meds taken: Yes Any med S/E: appears restless with frequent shifting of weight from leg to leg, pt denies feeling restless Mental Status Exam Appearance: Disheveled, hair sticking up Eye contact: Good Behavior: Pleasant, cooperative, avoidant/isolative to self. Speech: Quiet, selectively mute Mood: good Affect: anxous, restricted Thought process: Linear Thought Content: Pt does not share many thoughts or feelings, does not believe his restless legs are a medication side effect. Cognition: A/O X 2 Insight: Poor. Judgment: Poor. Interventions PRN's used: None Therapeutic interventions: 1:1 assessment, encouragement to express thoughts and feelings, encouragement to perform personal hygiene, medication administration/education/monitoring, Q15 min safety checks. Restraints/seclusion/emergency medication: N/A Justification of Continued Inpatient Treatment: Pt unable to formulate a viable plan for food, residential and clothing. Continued therapeutic support and medication adjustment/management needed to provide stabilization, prevent decompensation, improve coping mechanisms decreasing risk to patient and re-admittance. Dr Gomes plans to increase antidepressant Effexor up to 300 mg tomorrow.
[2019-07-01 07:24] VITALS: BP 105/68
[2019-07-01] MEDS: venlafaxine XR 75mg capsule (Q24H) PO SCH (08:07)
[2019-07-01] MEDS: omega-3 acid ethyl esters 1GM capsule PO SCH (08:07)
[2019-07-01] MEDS: vitamin D (cholecalciferol) 1,000 unit tablet PO SCH (08:07)
[2019-07-01] MEDS: docusate sod 100mg capsule PO SCH ×2 (08:07→20:13)
[2019-07-01] MEDS: multivitamins, therapeutics tablet PO SCH (08:07)
--- NOTE | 2019-07-01 14:32 | NUR ---
06/30/19 NURSING PROGRESS NOTE: Legal hold: 5270 Exp 07/16 @ 1525 Client on involuntary status for GD. Report received from [facility] with use of SBAR. Why are they here: Pt is diagnosed with schizophrenia. Pt is unable to formulate a plan for food, [facility] or clothes. Per admission note, pt reported to walk around the block for hours at at time and stare off into the distance. Pt had $130 in his pocket, but was found eating spoiled food from dumpster. Assessment: What happened this shift: Pt denies depression, anxiety, SI/HI/AH/VH. Pt states that he is "okay." When asked how breakfast was, he replied that it was good. When asked when his last BM was , he stated a couple of days ago. Asked pt if he was feeling constipated, he replied, "not bad." Provided pt with some prune juice which he drank right down. Pt continues on routine Colace. Pt requested more toothpaste which was provided. Pt has mannerisms, shifts back and forth distributing weight on one foot then the other, alternates lifting feet slightly off the floor, seems to be a nervous habit while interacting/answering questions. S/I, H/I: Pt denies. A/VH: Pt denies, does not appear to be responding to internal stimuli. Sleep: Slept all night per noc shift report, naps frequently throughout the day. ADL's: Independent, needs encouragement at times for personal hygiene. Group attendance: No Were meds taken: Yes Any med S/E: None reported, psychiatrist believes pt has mannerisms not EPS side effects Mental Status Exam Appearance: Disheveled, hair sticking up Eye contact: Good Behavior: Pleasant, cooperative, avoidant/isolative to self. Speech: Quiet, selectively mute, answers questions with short answers, does not offer information unprompted Mood: "okay" Affect: anxous, restricted Thought process: Linear Thought Content: He is okay, food is good,he is a little constipated Cognition: A/O X 2 Insight: Poor. Judgment: Poor. Interventions PRN's used: None Therapeutic interventions: 1:1 assessment, encouragement to express thoughts and feelings, encouragement to perform personal hygiene, encouragement to attend group, medication administration/education/monitoring, Q15 min safety checks. Restraints/seclusion/emergency medication: N/A Justification of Continued Inpatient Treatment: Pt unable to formulate a viable plan for food, [facility] and clothing. Continued therapeutic support and medication adjustment/management needed to provide stabilization, prevent decompensation, improve coping mechanisms decreasing risk to patient and re-admittance. Dr Gomes plans to increase antidepressant Effexor up to 300 mg.
[2019-07-01 20:07] VITALS: BP 108/73
[2019-07-01] MEDS: PALIPERIDONE 3 MG TAB.ER.24 PO SCH (20:13)
--- NOTE | 2019-07-01 22:01 | NUR ---
06/30/19 NURSING PROGRESS NOTE: Legal hold: 5270 Exp 07/16 @ 1525 Client on involuntary status for GD. Report received from [facility] with use of SBAR. Why are they here: Pt is diagnosed with schizophrenia. Pt is unable to formulate a plan for food, [facility] or clothes. Per admission note, pt reported to walk around the block for hours at at time and stare off into the distance. Pt had $130 in his pocket, but was found eating spoiled food from dumpster. Assessment: What happened this shift: Pt denies depression, anxiety, SI/HI/AH/VH. Pt states that he is "okay." When asked when his last BM was , he stated a couple of days ago. Asked pt if he was feeling constipated, he replied, "not bad." Provided pt with some prune juice which he drank right down. Pt continues on routine Colace. Patient continues to isolate to his room getting up for snack then back to bed. Pt is med compliant and will converse with short sentences. Pt has mannerisms, shifts back and forth distributing weight on one foot then the other, alternates lifting feet slightly off the floor, seems to be a nervous habit while interacting/answering questions. S/I, H/I: Pt denies. A/VH: Pt denies, does not appear to be responding to internal stimuli. Sleep: Slept all night per noc shift report, naps frequently throughout the day. ADL's: Independent, needs encouragement at times for personal hygiene. Group attendance: No Were meds taken: Yes Any med S/E: None reported, psychiatrist believes pt has mannerisms not EPS side effects Mental Status Exam Appearance: Disheveled, hair sticking up Eye contact: Good Behavior: Pleasant, cooperative, avoidant/isolative to self. Speech: Quiet, selectively mute, answers questions with short answers, does not offer information unprompted Mood: "okay" Affect: anxous, restricted Thought process: Linear Thought Content: He is okay, food is good,he is a little constipated Cognition: A/O X 2 Insight: Poor. Judgment: Poor. Interventions PRN's used: None Therapeutic interventions: 1:1 assessment, encouragement to express thoughts and feelings, encouragement to perform personal hygiene, encouragement to attend group, medication administration/education/monitoring, Q15 min safety checks. Restraints/seclusion/emergency medication: N/A Justification of Continued Inpatient Treatment: Pt unable to formulate a viable plan for food, [facility] and clothing. Continued therapeutic support and medication adjustment/management needed to provide stabilization, prevent decompensation, improve coping mechanisms decreasing risk to patient and re-admittance. Dr Gomes plans to increase antidepressant Effexor up to 300 mg.
[2019-07-02 08:00] VITALS: BP 116/69
[2019-07-02] MEDS: multivitamins, therapeutics tablet PO SCH (08:09)
[2019-07-02] MEDS: venlafaxine XR 75mg capsule (Q24H) PO SCH (08:09)
[2019-07-02] MEDS: vitamin D (cholecalciferol) 1,000 unit tablet PO SCH (08:09)
[2019-07-02] MEDS: magnesium hydroxide 30ml (MOM) UD suspension PO PRN (08:10)
[2019-07-02] MEDS: docusate sod 100mg capsule PO SCH ×2 (08:10→20:10)
[2019-07-02] MEDS: omega-3 acid ethyl esters 1GM capsule PO SCH (08:10)
--- NOTE | 2019-07-02 09:50 | NUR ---
Reassessment: Patient with good appetite, eating well, 75-100% of regular diet. LBM 06/28, documented as constipated, patient is receiving BID colace and received milk of magnesia on 07/02. Documented weights show an increase of 28 lbs since admission about three weeks ago, weights were taken with both standing scale and bedscale, possible weigh error. On standing scale alone patient shows a 17 lbs increase. Will continue to follow. Recommend: 1. Continue regular diet 2. Continue routine bowel care 3. Encourage PO intake 4. Weekly weights Addendum: 07/02/19 at [address] Amended: Links added.
[2019-07-02] MEDS ORDERED: tuberculin, purif. prot. deriv. 5 units/0.1ml ID ONE (12:10)
--- NOTE | 2019-07-02 13:19 | NUR ---
NURSING PROGRESS NOTE: Legal hold: 5270 Exp 07/16 @ 1525 Client on involuntary status for GD. Report received from Amaris MEJIA with use of SBAR. Why are they here: Pt is diagnosed with schizophrenia. Pt is unable to formulate a plan for food, intermediate or clothes. Per admission note, pt reported to walk around the block for hours at at time and stare off into the distance. Pt had $130 in his pocket, but was found eating spoiled food from dumpster. Assessment: What happened this shift: Pt denies depression, anxiety, SI/HI/AH/VH. Pt states that he is "okay" and he slept "good." Pt knew the month and year but did not know the date or day. Pt knew that he was at [facility]. When asked pt why he was here, he replied that he was here for a place to stay. Pt did not recall the events leading to his admission. The soles of pt's feet are very dry, offered to bring him some lotion, pt declined, "not thanks." Pt cont to c/o constipation, administered MOM with breakfast, pt states he had a hard, formed BM after breakfast. Pt continues to nervously shift back and forth on his legs while lifting one foot and then the other off of the floor while interacting with this nurse. Tripp pt on the phone after breakfast speaking with someone. Tripp pt say "pretty good" evidently in response to person on the other end of the line asking him how he was doing. Later asked the pt who he had been speaking with on the phone. Pt stated that he had called [facility]. Pt states they told him maybe in a few days. Pt has on order to have a PPD placed. S/I, H/I: Pt denies. A/VH: Pt denies, does not appear to be responding to internal stimuli. Sleep: Pt slept 10.25 hours per noc shift report, napped less today. ADL's: Independent, needs encouragement at times for personal hygiene. Group attendance: No Were meds taken: Yes Any med S/E: None Mental Status Exam Appearance: Disheveled Eye contact: Good Behavior: Pleasant, cooperative, mostly isolative to self Speech: Quiet, selectively mute, short answers to questions Mood: "okay" Affect: anxous, restricted Thought process: Linear Thought Content: Pt focused on being accepted at [facility] Cognition: A/O X 2 Insight: Poor. Judgment: Poor. Interventions PRN's used: MOM Therapeutic interventions: 1:1 assessment, encouragement to express thoughts and feelings, encouragement to perform personal hygiene, encouragement to attend group, medication administration/education/monitoring, Q15 min safety checks. Restraints/seclusion/emergency medication: N/A Justification of Continued Inpatient Treatment: Pt unable to formulate a viable plan for food, intermediate and clothing. Continued therapeutic support and medication adjustment/management needed to provide stabilization, prevent decompensation, improve coping mechanisms decreasing risk to patient and re-admittance. Pt is awaiting placement at [facility] probably within the next few days.
--- NOTE | 2019-07-02 14:55 | NUR ---
Administered PPD right forearm at 1441, to be read on 07/04/19 after 1441.
[2019-07-02 20:00] VITALS: BP 134/96
[2019-07-02] MEDS: PALIPERIDONE 3 MG TAB.ER.24 PO SCH (20:10)
--- NOTE | 2019-07-02 22:16 | NUR ---
NURSING PROGRESS NOTE: Legal hold: 5270 Exp 07/16 @ 1525 Client on involuntary status for GD. Report received from Brain MEJIA with use of SBAR. Why are they here: Pt is diagnosed with schizophrenia. Pt is unable to formulate a plan for food, chcf or clothes. Per admission note, pt reported to walk around the block for hours at at time and stare off into the distance. Pt had $130 in his pocket, but was found eating spoiled food from dumpster. Assessment: What happened this shift: Pt denies depression, anxiety, SI/HI/AH/VH. Pt states that he is "okay" and he slept "good." Pt knew the month and year but did not know the date or day. Pt knew that he was at [facility]. Pt continues to nervously shift back and forth on his legs while lifting one foot and then the other off of the floor. Pt has on order to have a PPD placed. S/I, H/I: Pt denies. A/VH: Pt denies, does not appear to be responding to internal stimuli. Sleep: Pt slept 10.25 hours per noc shift report, napped less today. ADL's: Independent, needs encouragement at times for personal hygiene. Group attendance: No Were meds taken: Yes Any med S/E: None Mental Status Exam Appearance: Disheveled Eye contact: Good Behavior: Pleasant, cooperative, mostly isolative to self Speech: Quiet, selectively mute, short answers to questions Mood: "okay" Affect: anxous, restricted Thought process: Linear Thought Content: Pt focused on being accepted at [facility] Cognition: A/O X 2 Insight: Poor. Judgment: Poor. Interventions PRN's used: MOM Therapeutic interventions: 1:1 assessment, encouragement to express thoughts and feelings, encouragement to perform personal hygiene, encouragement to attend group, medication administration/education/monitoring, Q15 min safety checks. Restraints/seclusion/emergency medication: N/A Justification of Continued Inpatient Treatment: Pt unable to formulate a viable plan for food, chcf and clothing. Continued therapeutic support and medication adjustment/management needed to provide stabilization, prevent decompensation, improve coping mechanisms decreasing risk to patient and re-admittance. Pt is awaiting placement at [facility] probably within the next few days.
[2019-07-03] MEDS: docusate sod 100mg capsule PO SCH ×2 (07:57→20:34)
[2019-07-03] MEDS: venlafaxine XR 75mg capsule (Q24H) PO SCH (07:57)
[2019-07-03] MEDS: omega-3 acid ethyl esters 1GM capsule PO SCH (07:57)
[2019-07-03] MEDS: vitamin D (cholecalciferol) 1,000 unit tablet PO SCH (07:57)
[2019-07-03] MEDS: multivitamins, therapeutics tablet PO SCH (07:57)
[2019-07-03 08:00] VITALS: BP 106/65
--- NOTE | 2019-07-03 08:52 | NUR ---
DISCHARGE PLANNING: LVM with Angelina at [facility] requesting call back about appointments
--- NOTE | 2019-07-03 15:49 | NUR ---
NURSING PROGRESS NOTE: FELICIA Legal hold: 5270 Exp 07/16 @ 1525 Client on involuntary status for GD. Report received from Amaris MEJIA with use of SBAR. Why are they here: Pt is diagnosed with schizophrenia. Pt is unable to formulate a plan for food, halfway or clothes. Per admission note, pt reported to walk around the block for hours at at time and stare off into the distance. Pt had $130 in his pocket, but was found eating spoiled food from dumpster. Assessment: What happened this shift: Pt appears sleeping in bed at change of shift. Once awake he is disheveled but is willing to do 1:1 assessment at bedside. He denies any issues with medications and takes them when offered. He appears to have restless legs which is baseline for him and he denies it being bothersome. He is more talkative today than in recent past and is able to answer questions appropriately. 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 No other concerns voiced at this time. S/I, H/I: Pt denies A/VH: Pt denies, does not appear to be responding to internal stimuli. Sleep: 10.25hrs NOC ADL's: Independent, encouraged to shower, denied Group attendance: No Were meds taken: Yes Any med S/E: None Mental Status Exam Appearance: Disheveled, poor hygiene Eye contact: Mostly direct Behavior: cooperative, mostly isolative to self Speech: Quiet, short answers to questions Mood: "Fine" Affect: anxous, restricted Thought process: Linear Thought Content: Pt focused on being accepted at [facility] Cognition: A/O X 2 Insight: Poor. Judgment: Poor. Interventions PRN's used: Therapeutic interventions: 1:1 assessment, encouragement to express thoughts and feelings, encouragement to perform personal hygiene, encouragement to attend group, medication administration/education/monitoring, Q15 min safety checks. Restraints/seclusion/emergency medication: N/A Justification of Continued Inpatient Treatment: Pt unable to formulate a viable plan for food, halfway and clothing. Continued therapeutic support and medication adjustment/management needed to provide stabilization, prevent decompensation, improve coping mechanisms decreasing risk to patient and re-admittance. Pt is awaiting placement at [facility] probably within the next few days. PPD was placed yesterday.
[2019-07-03 20:00] VITALS: BP 114/72
[2019-07-03] MEDS: PALIPERIDONE 3 MG TAB.ER.24 PO SCH (20:34)
--- NOTE | 2019-07-03 22:50 | NUR ---
NURSING PROGRESS NOTE: Legal hold: 5270 Exp 07/16 @ 1525 Client on involuntary status for GD. Report received from JACKIE Clements with use of SBAR. Why are they here: Pt is diagnosed with schizophrenia. Pt is unable to formulate a plan for food, mcfp or clothes. Per admission note, pt reported to walk around the block for hours at at time and stare off into the distance. Pt had $130 in his pocket, but was found eating spoiled food from dumpster. Assessment: What happened this shift: Pt sleeping comfortably in bed at shift change, no acute distress noted. Pt is easily aroused for his HS med and is compliant. 1:1 assessment completed at bedside. Pt up for HS snack then immediately goes back to bed. Pt shakes his head yes when asked about going to [facility]. This film writer reconfirmed that pt wouldn't do any drugs while he was there pt verbalized, "no drugs." Pt does shift back and forth on his feet when spoken too, but stops when he drinks his water. S/I, H/I: Pt denies. A/VH: Pt denies, does not appear to be responding to internal stimuli. Sleep: See sleep assessment notation. ADL's: Independent, needs encouragement at times for personal hygiene. 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 Pt does not attend during the day. Were meds taken: Medication compliant. Any med S/E: None noted or observed. Pt's rocking is baseline. Mental Status Exam Appearance: Disheveled, dressed in green unit scrubs. Eye contact: Good Behavior: Pleasant, cooperative, mostly isolative to self Speech: Quiet, selectively mute, short answers to questions Mood: "Okay" Affect: Restricted Thought process: Linear Thought Content: Sleeping Cognition: A/O X 2 Insight: Poor. Judgment: Poor. Interventions PRN's used: None Therapeutic interventions: 1:1 assessment, encouragement to express thoughts and feelings, encouragement to perform personal hygiene, encouragement to attend group, medication administration/education/monitoring, Q15 min safety checks. Restraints/seclusion/emergency medication: N/A Justification of Continued Inpatient Treatment: Pt unable to formulate a viable plan for food, mcfp and clothing. Continued therapeutic support and medication adjustment/management needed to provide stabilization, prevent decompensation, improve coping mechanisms decreasing risk to patient and re-admittance. Pt is awaiting placement at [facility] probably within the next few days.
[2019-07-04 07:00] VITALS: BP 110/69
[2019-07-04] MEDS: docusate sod 100mg capsule PO SCH ×2 (08:09→20:43)
[2019-07-04] MEDS: multivitamins, therapeutics tablet PO SCH (08:09)
[2019-07-04] MEDS: vitamin D (cholecalciferol) 1,000 unit tablet PO SCH (08:09)
[2019-07-04] MEDS: omega-3 acid ethyl esters 1GM capsule PO SCH (08:09)
[2019-07-04] MEDS: venlafaxine XR 75mg capsule (Q24H) PO SCH (08:09)
--- NOTE | 2019-07-04 15:57 | NUR ---
NURSING PROGRESS NOTE: FELICIA Legal hold: 5270 Exp 07/16 @ 1525 Client on involuntary status for GD. Report received from Amaris MEJIA with use of SBAR. Why are they here: Pt is diagnosed with schizophrenia. Pt is unable to formulate a plan for food, group home or clothes. Per admission note, pt reported to walk around the block for hours at at time and stare off into the distance. Pt had $130 in his pocket, but was found eating spoiled food from dumpster. Assessment: What happened this shift: Pt appears sleeping in bed at change of shift. Pt is pleasant and denies any medication side effects. He denies any issues with medications and takes them when offered. He appears to have restless legs which is baseline for him and he denies it being bothersome. He is able to answer questions appropriately and happily requests snacks. No other concerns voiced at this time. S/I, H/I: Pt denies A/VH: Pt denies, does not appear to be responding to internal stimuli. Sleep: 9 hrs NOC ADL's: Independent, encouraged to shower Group attendance: No Were meds taken: Yes Any med S/E: None Mental Status Exam Appearance: Disheveled, poor hygiene Eye contact: Mostly direct Behavior: cooperative, mostly isolative to self Speech: Quiet, short answers to questions Mood: "Good" Affect: anxious, restricted Thought process: Linear Thought Content: Pt focused on being accepted at [facility] Jul 10 Cognition: A/O X 2 Insight: Poor. Judgment: Poor. Interventions PRN's used: N/A Therapeutic interventions: 1:1 assessment, encouragement to express thoughts and feelings, encouragement to perform personal hygiene, encouragement to attend group, medication administration/education/monitoring, Q15 min safety checks. Restraints/seclusion/emergency medication: N/A Justification of Continued Inpatient Treatment: Pt unable to formulate a viable plan for food, group home and clothing. Continued therapeutic support and medication adjustment/management needed to provide stabilization, prevent decompensation, improve coping mechanisms decreasing risk to patient and re-admittance. Pt is awaiting placement at [facility] Jul 10 or . PPD was negative.
[2019-07-04 19:56] VITALS: BP 114/76
[2019-07-04] MEDS: PALIPERIDONE 3 MG TAB.ER.24 PO SCH (20:43)
--- NOTE | 2019-07-05 00:17 | NUR ---
NURSING PROGRESS NOTE: Legal hold: 5270 Exp 07/16 @ 1525 Client on involuntary status for GD. Report received from JACKIE Clements with use of SBAR. Why are they here: Pt is diagnosed with schizophrenia. Pt is unable to formulate a plan for food, mcc or clothes. Per admission note, pt reported to walk around the block for hours at at time and stare off into the distance. Pt had $130 in his pocket, but was found eating spoiled food from dumpster. Assessment: What happened this shift: Pt is resting comfortably in bed at shift change. Pt arouses easy. Pt is up for HS snack then back to bed. Compliant with medication and 1:1 assessment. No somatic complaints reported. Pt is sleeping comfortably with no acute distress noted. S/I, H/I: Pt denies. A/VH: Pt denies, does not appear to be responding to internal stimuli. Sleep: Appears to be sleeping comfortably throughout shift. ADL's: Independent, needs encouragement at times for personal hygiene. 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 Pt does not attend during the day. Were meds taken: Medication compliant. Any med S/E: None noted or observed. Pt's rocking is baseline. Mental Status Exam Appearance: Disheveled, dressed in green unit scrubs, looks older then stated age. Eye contact: Fair Behavior: Pleasant, cooperative, mostly isolative to self Speech: Quiet, selectively mute, short answers to questions Mood: Sleepy Affect: Restricted Thought process: Linear Thought Content: Sleeping Cognition: A/O X 2 Insight: Poor. Judgment: Poor. Interventions PRN's used: None Therapeutic interventions: 1:1 assessment, encouragement to express thoughts and feelings, encouragement to perform personal hygiene, encouragement to attend group, medication administration/education/monitoring, Q15 min safety checks. Restraints/seclusion/emergency medication: N/A Justification of Continued Inpatient Treatment: Pt unable to formulate a viable plan for food, mcc and clothing. Continued therapeutic support and medication management, improve coping mechanisms. Pt is awaing placement to [facility] approximately first part of July.
[2019-07-05 08:00] VITALS: BP 110/72
[2019-07-05] MEDS: docusate sod 100mg capsule PO SCH ×2 (08:13→20:51)
[2019-07-05] MEDS: omega-3 acid ethyl esters 1GM capsule PO SCH (08:13)
[2019-07-05] MEDS: multivitamins, therapeutics tablet PO SCH (08:14)
[2019-07-05] MEDS: vitamin D (cholecalciferol) 1,000 unit tablet PO SCH (08:14)
[2019-07-05] MEDS: venlafaxine XR 75mg capsule (Q24H) PO SCH (08:14)
[2019-07-05] MEDS: magnesium hydroxide 30ml (MOM) UD suspension PO PRN (13:44)
--- NOTE | 2019-07-05 15:17 | NUR ---
Reassessment: Patient with good appetite, eating well, 75-100% of regular diet. Did have decrease in PO intake 07/03, is otherwise eating well. LBM 07/03, no GI symptoms. Documented weights show an increase of 28 lbs since admission about three weeks ago, weights were taken with both standing scale and bedscale, first weight was possible weigh error, weight is stable now. Will continue to follow. Recommend: 1. Continue regular diet 2. Continue routine bowel care 3. Encourage PO intake 4. Weekly weights Addendum: 07/05/19 at [address] Amended: Links added.
--- NOTE | 2019-07-05 18:22 | NUR ---
NURSING PROGRESS NOTE Legal hold: 5270 Exp 07/16 @ 1525 Client on involuntary status for GD. Report received from Raina MEJIA with use of SBAR. Why are they here: Pt is diagnosed with schizophrenia. Pt is unable to formulate a plan for food, fpc or clothes. Per admission note, pt reported to walk around the block for hours at at time and stare off into the distance. Pt had $130 in his pocket, but was found eating spoiled food from dumpster. Assessment: What happened this shift: Patient is observed resting at change of shift. He wakes just prior to breakfast and joins others. He states that he is doing well and denies any needs. He is friendly and polite. Patient takes his medications without issue. Patient does not attend groups. He refuses to eat his lunch and tells staff It wont come out. Patient states that he has not had a BM in a week but when asked if he had had a BM this morning patient nodded yes he had. Patient is provided MOM, prune juice and encouraged to walk the unit. He states he will let staff know if this issue continues. He returns to his bed and sleeps. S/I, H/I: Pt denies A/VH: Pt denies, does not appear to be responding to internal stimuli. Sleep: 8.75hrs NOC and rested during the day ADL's: Independent Group attendance: No Were meds taken: Yes Any med S/E: None Mental Status Exam Appearance: Disheveled, poor hygiene Eye contact: direct Behavior: cooperative and friendly when approached Speech: Quiet, short answers to questions Mood: "Good" Affect: restricted with brightening Thought process: confused Thought Content: no delusional thought content present Cognition: A/O X 2 Insight: Poor. Judgment: Poor. Interventions PRN's used: N/A Therapeutic interventions: 1:1 assessment, encouragement to express thoughts and feelings, encouragement to perform personal hygiene, encouragement to attend group, medication administration/education/monitoring, Q15 min safety checks. Restraints/seclusion/emergency medication: N/A Justification of Continued Inpatient Treatment: Pt unable to formulate a viable plan for food, fpc and clothing. Continued therapeutic support and medication adjustment/management needed to provide stabilization, prevent decompensation, improve coping mechanisms decreasing risk to patient and re-admittance. Pt is awaiting placement at [facility] Jul 10 or . PPD was negative.
[2019-07-05 19:00] VITALS: BP 115/72
[2019-07-05] MEDS: PALIPERIDONE 3 MG TAB.ER.24 PO SCH (20:50)
--- NOTE | 2019-07-06 00:22 | NUR ---
NURSING PROGRESS NOTE: Legal hold: 5270 Exp 07/16 @ 1525 Client on involuntary status for GD. Report received from JACKIE Clements with use of SBAR. Why are they here: Pt is diagnosed with schizophrenia. Pt is unable to formulate a plan for food, correction or clothes. Per admission note, pt reported to walk around the block for hours at at time and stare off into the distance. Pt had $130 in his pocket, but was found eating spoiled food from dumpster. Assessment: What happened this shift: Pt is resting comfortably in bed at shift change. Pt rouses easily. Pt is up for HS snack then back to bed. Compliant with medication and 1:1 assessment. No somatic complaints reported. No BM reported, pt did drink the prune juice that was offered. Pt is sleeping comfortably with no acute distress noted. S/I, H/I: Pt denies. A/VH: Pt denies, does not appear to be responding to internal stimuli. Sleep: Appears to be sleeping comfortably throughout shift. ADL's: Independent, needs encouragement at times for personal hygiene. 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 Pt does not attend during the day. Were meds taken: Medication compliant. Any med S/E: None noted or observed. Pt's rocking is baseline. Mental Status Exam Appearance: Disheveled, dressed in green unit scrubs, looks older then stated age. Eye contact: Fair Behavior: Pleasant, cooperative, mostly isolative to self Speech: Quiet, selectively mute, short answers to questions Mood: Sleepy Affect: Restricted Thought process: Linear Thought Content: Sleeping Cognition: A/O X 2 Insight: Poor. Judgment: Poor. Interventions PRN's used: None Therapeutic interventions: 1:1 assessment, encouragement to express thoughts and feelings, encouragement to perform personal hygiene, encouragement to attend group, medication administration/education/monitoring, Q15 min safety checks. Restraints/seclusion/emergency medication: N/A Justification of Continued Inpatient Treatment: Pt unable to formulate a viable plan for food, correction and clothing. Continued therapeutic support and medication management, improve coping mechanisms. Pt is awaing placement to [facility] approximately first part of July.
[2019-07-06] MEDS: docusate sod 100mg capsule PO SCH ×2 (07:39→20:04)
[2019-07-06] MEDS: omega-3 acid ethyl esters 1GM capsule PO SCH (07:40)
[2019-07-06] MEDS: venlafaxine XR 75mg capsule (Q24H) PO SCH (07:40)
[2019-07-06] MEDS: vitamin D (cholecalciferol) 1,000 unit tablet PO SCH (07:40)
[2019-07-06] MEDS: multivitamins, therapeutics tablet PO SCH (07:40)
[2019-07-06 08:00] VITALS: BP 120/75
--- NOTE | 2019-07-06 17:18 | NUR ---
NURSING PROGRESS NOTE: Legal hold: 5270 Exp 07/16 @ 1525 Client on involuntary status for GD. Report received from JACKIE Tang with use of SBAR. Why are they here: Pt is diagnosed with schizophrenia. Pt is unable to formulate a plan for food, group home or clothes. Per admission note, pt reported to walk around the block for hours at at time and stare off into the distance. Pt had $130 in his pocket, but was found eating spoiled food from dumpster. Assessment: What happened this shift: The patient was asleep at change of shift. Medication compliant and eating meals. Will answer simple questions and is a bit brighter overall. Isolates to room and sleeps most of day but will get up and walk a bit at times. c/o constipation and reports no BM today, was given prune juice. S/I, H/I: Pt denies. A/VH: Pt denies, does not appear to be responding to internal stimuli. Sleep: Appears to be sleeping comfortably throughout shift. ADL's: Independent, needs encouragement at times for personal hygiene. Group attendance: None Were meds taken: Medication compliant. Any med S/E: None Mental Status Exam Appearance: Disheveled, dressed in green unit scrubs, looks older then stated age. Eye contact: poor Behavior: Pleasant, cooperative, mostly isolative to self Speech: Quiet, selectively mute, short answers to questions Mood: depressed Affect: constriction Thought process: Linear Thought Content: worried about BM's Cognition: A/O X 2 Insight: Poor. Judgment: Poor. Interventions PRN's used: None Therapeutic interventions: 1:1 assessment, encouragement to express thoughts and feelings, encouragement to perform personal hygiene, encouragement to attend group, medication administration/education/monitoring, Q15 min safety checks. Restraints/seclusion/emergency medication: N/A Justification of Continued Inpatient Treatment: Pt unable to formulate a viable plan for food, group home and clothing. Continued therapeutic support and medication management, improve coping mechanisms. Pt is awaing placement to [facility] approximately first part of July.
[2019-07-06 20:00] VITALS: BP 127/63
[2019-07-06] MEDS: PALIPERIDONE 3 MG TAB.ER.24 PO SCH (20:03)
[2019-07-06] MEDS: magnesium hydroxide 30ml (MOM) UD suspension PO PRN (20:04)
--- NOTE | 2019-07-06 21:49 | NUR ---
NURSING PROGRESS NOTE: Legal hold: 5270 Exp 07/16 @ 1525 Client on involuntary status for GD. Report received from JACKIE Mohan with use of SBAR. Why are they here: Pt is diagnosed with schizophrenia. Pt is unable to formulate a plan for food, nursing home or clothes. Per admission note, pt reported to walk around the block for hours at at time and stare off into the distance. Pt had $130 in his pocket, but was found eating spoiled food from dumpster. Assessment: What happened this shift: Pt sleeping in room at change of shift, and isolated to self for the entirety of the shift. Pt's eye contact is markedly improved and he spontaneously says short, simple sentences. Attempt to smile made but otherwise affect remains flat. Pt denies hallucinations and does not appear to be preoccupied with internal or external stimuli. He is medication compliant and cooperative. requested MOM for c/o constipation; pt returned to sleep shortly after medication pass and finishing a sandwich. S/I, H/I: Denies A/VH: Denies Sleep: See Sleep Assessment ADL's: Independent, needs prompting Group attendance: N/A Were meds taken: Yes Any med S/E: None reported, mild tardive dyskinesia observed Mental Status Exam Appearance: Disheveled, dressed in green unit scrubs Eye contact: Direct Behavior: Isolates in room, Resting Speech: Soft tone, simple, short sentences, yes and no answers Mood: "I'm okay" Affect: Flat Thought process: Linear Thought Content: Wants to have a BM and sandwich Cognition: A/O X 2 Insight: Poor Judgment: Poor to fair Interventions PRN's used: None Therapeutic interventions: 1:1 assessment, encouragement to express thoughts and feelings, encouragement to perform personal hygiene, encouragement to attend group, medication administration/education/monitoring, Q15 min safety checks. Restraints/seclusion/emergency medication: N/A Justification of Continued Inpatient Treatment: Pt unable to formulate a viable plan for food, nursing home and clothing. Continued therapeutic support and medication management, improve coping mechanisms. Pt is awaing placement to [facility] approximately first part of July.
[2019-07-07 07:31] VITALS: BP 99/72
[2019-07-07] MEDS: venlafaxine XR 75mg capsule (Q24H) PO SCH (07:47)
[2019-07-07] MEDS: docusate sod 100mg capsule PO SCH ×2 (07:47→20:39)
[2019-07-07] MEDS: multivitamins, therapeutics tablet PO SCH (07:47)
[2019-07-07] MEDS: vitamin D (cholecalciferol) 1,000 unit tablet PO SCH (07:47)
[2019-07-07] MEDS: omega-3 acid ethyl esters 1GM capsule PO SCH (07:47)
--- NOTE | 2019-07-07 17:29 | NUR ---
NURSING PROGRESS NOTE: Legal hold: 5270 Exp 07/16 @ 1525 Client on involuntary status for GD. Report received from JACKIE Tang with use of SBAR. Why are they here: Pt is diagnosed with schizophrenia. Pt is unable to formulate a plan for food, halfway or clothes. Per admission note, pt reported to walk around the block for hours at at time and stare off into the distance. Pt had $130 in his pocket, but was found eating spoiled food from dumpster. Assessment: What happened this shift: Received Pt asleep in bed w/o distress at change of shift. Pt took medications and attended meals w/o concern or issue. Walked halls a bit and spent time in room resting and sleeping. Watched movie and ate snacks with others. No physical complaints today. Quiet and cooperative with others and staff. S/I, H/I: Pt denies. A/VH: Pt denies, does not appear to be responding to internal stimuli. Sleep: Appears to be sleeping comfortably throughout shift. ADL's: Independent, needs encouragement at times for personal hygiene. Group attendance: None Were meds taken: Medication compliant. Any med S/E: None Mental Status Exam Appearance: Disheveled, dressed in green unit scrubs, looks older then stated age. Eye contact: poor Behavior: Pleasant, cooperative, mostly isolative to self Speech: Quiet, selectively mute, short answers to questions Mood: depressed Affect: constriction Thought process: Linear Thought Content: worried about BM's Cognition: A/O X 2 Insight: Poor. Judgment: Poor. Interventions PRN's used: None Therapeutic interventions: 1:1 assessment, encouragement to express thoughts and feelings, encouragement to perform personal hygiene, encouragement to attend group, medication administration/education/monitoring, Q15 min safety checks. Restraints/seclusion/emergency medication: N/A Justification of Continued Inpatient Treatment: Pt unable to formulate a viable plan for food, halfway and clothing. Continued therapeutic support and medication management, improve coping mechanisms. Pt is awaiting placement to [facility] approximately first part of July.
[2019-07-07 19:00] VITALS: BP 131/77
[2019-07-07 20:00] VITALS: BP 124/71
[2019-07-07] MEDS: PALIPERIDONE 3 MG TAB.ER.24 PO SCH (20:41)
--- NOTE | 2019-07-07 23:22 | NUR ---
NURSING PROGRESS NOTE: Legal hold: 5270 Exp 07/16 @ 1525 Client on involuntary status for GD. Report received from JACKIE Chavez with use of SBAR. Why are they here: Pt is diagnosed with schizophrenia. Pt is unable to formulate a plan for food, jail or clothes. Per admission note, pt reported to walk around the block for hours at at time and stare off into the distance. Pt had $130 in his pocket, but was found eating spoiled food from dumpster. Assessment: What happened this shift: Pt sleeping in room at change of shift, and isolated to self for the entirety of the shift. Pt denies hallucinations and does not appear to be preoccupied with internal or external stimuli. He is medication compliant and cooperative. Pt stated he had a bowel movement, and verbalized understanding to let RN know if he becomes constipated again. Pt returned to sleep shortly after medication pass and finishing a sandwich. S/I, H/I: Denies A/VH: Denies Sleep: See Sleep Assessment ADL's: Independent, needs prompting Group attendance: N/A Were meds taken: Yes Any med S/E: None reported, mild tardive dyskinesia observed Mental Status Exam Appearance: Disheveled, dressed in green unit scrubs Eye contact: Direct Behavior: Isolates in room, Resting Speech: Soft tone, simple, short sentences, yes and no answers Mood: "I'm okay" Affect: Flat Thought process: Linear Thought Content: Wants a sandwich Cognition: A/O X 2 Insight: Poor Judgment: Poor to fair Interventions PRN's used: None Therapeutic interventions: 1:1 assessment, encouragement to express thoughts and feelings, encouragement to perform personal hygiene, encouragement to attend group, medication administration/education/monitoring, Q15 min safety checks. Restraints/seclusion/emergency medication: N/A Justification of Continued Inpatient Treatment: Pt unable to formulate a viable plan for food, jail and clothing. Continued therapeutic support and medication management, improve coping mechanisms. Pt is awaing placement to [facility] approximately first part of July.
[2019-07-08 07:20] VITALS: BP 116/71
[2019-07-08] MEDS: multivitamins, therapeutics tablet PO SCH (07:55)
[2019-07-08] MEDS: docusate sod 100mg capsule PO SCH ×2 (07:55→20:28)
[2019-07-08] MEDS: vitamin D (cholecalciferol) 1,000 unit tablet PO SCH (07:56)
[2019-07-08] MEDS: omega-3 acid ethyl esters 1GM capsule PO SCH (07:56)
[2019-07-08] MEDS: venlafaxine XR 75mg capsule (Q24H) PO SCH (07:56)
--- NOTE | 2019-07-08 11:24 | NUR ---
DISCHARGE PLANNING: Patient has been accepted to [facility] for Jul.2, he will dc there early in the morning so his dc needs to be put in the night before. Call Priscilla [phone] for dc ride.
--- NOTE | 2019-07-08 15:20 | NUR ---
NURSING PROGRESS NOTE: Legal hold: 5270 Exp 07/16 @ 1525 Client on involuntary status for GD. Report received from JACKIE Tang with use of SBAR. Why are they here: Pt is diagnosed with schizophrenia. Pt is unable to formulate a plan for food, senior care or clothes. Per admission note, pt reported to walk around the block for hours at at time and stare off into the distance. Pt had $130 in his pocket, but was found eating spoiled food from dumpster. Assessment: What happened this shift: Pt sleeping at start of shift. Up for 1:1 assessment and morning med administration. Pt cooperative with attending groupes when encouraged to be up and out on the unit. Some pacing in the halls in the early afternoon, later resting on his bed. Pt is quiet does not engage w/others without prompts. S/I, H/I: Pt denies. A/VH: Pt denies Sleep: Rest on and off throughout the shift. ADL's: Independent; needs prompting and reminders to shower Group attendance: Yes Were Meds taken: Medication compliant. Any med S/E: Akathisia Mental Status Exam Appearance: Disheveled, dressed in green unit scrubs, looks older then stated age. Eye contact: poor Behavior: Pleasant, cooperative, mostly isolative to self Speech: Quiet, selectively mute, short answers to questions Mood: depressed Affect: constriction Thought process: Linear Thought Content: worried about BM's Cognition: A/O X 2 Insight: Poor. Judgment: Poor. Interventions PRN's used: None Therapeutic interventions: Provided 1:1 assessment, therapeutic communication and active listening, encouragement to perform personal hygiene, encouragement to attend group, medication administration/education/monitoring, Q15 min safety checks. Restraints/seclusion/emergency medication: N/A Justification of Continued Inpatient Treatment: Pt unable to formulate a viable plan for food, senior care and clothing. Continued therapeutic support and medication management, improve coping mechanisms. Pt is awaiting placement to [facility] approximately first part of July.
[2019-07-08 20:00] VITALS: BP 129/72
[2019-07-08] MEDS: PALIPERIDONE 3 MG TAB.ER.24 PO SCH (20:27)
--- NOTE | 2019-07-08 20:57 | NUR ---
NURSING PROGRESS NOTE: Legal hold: 5270 Exp 07/16 @ 1525 Client on involuntary status for GD. Report received from JACKIE Crocker with use of SBAR. Why are they here: Pt is diagnosed with schizophrenia. Pt is unable to formulate a plan for food, jail or clothes. Per admission note, pt reported to walk around the block for hours at at time and stare off into the distance. Pt had $130 in his pocket, but was found eating spoiled food from dumpster. Assessment: What happened this shift: Pt isolating to his room at start of shift. Pt cooperative with attending group and snack when encouraged to be up and out on the unit. . Pt is quiet does not engage w/others without prompts. pt is med compliant. S/I, H/I: Pt denies. A/VH: Pt denies Sleep: Rest on and off throughout the shift. ADL's: Independent; needs prompting and reminders to shower Group attendance: Yes Were Meds taken: Medication compliant. Any med S/E: Akathisia Mental Status Exam Appearance: Disheveled, dressed in green unit scrubs, looks older then stated age. Eye contact: poor Behavior: Pleasant, cooperative, mostly isolative to self Speech: Quiet, selectively mute, short answers to questions Mood: depressed Affect: constriction Thought process: Linear Thought Content: worried about BM's Cognition: A/O X 2 Insight: Poor. Judgment: Poor. Interventions PRN's used: None Therapeutic interventions: Provided 1:1 assessment, therapeutic communication and active listening, encouragement to perform personal hygiene, encouragement to attend group, medication administration/education/monitoring, Q15 min safety checks. Restraints/seclusion/emergency medication: N/A Justification of Continued Inpatient Treatment: Pt unable to formulate a viable plan for food, jail and clothing. Continued therapeutic support and medication management, improve coping mechanisms. Pt is awaiting placement to [facility] approximately first part of July.
[2019-07-09 07:55] VITALS: BP 108/73
[2019-07-09] MEDS: venlafaxine XR 75mg capsule (Q24H) PO SCH (08:10)
[2019-07-09] MEDS: omega-3 acid ethyl esters 1GM capsule PO SCH (08:10)
[2019-07-09] MEDS: docusate sod 100mg capsule PO SCH ×2 (08:11→20:26)
[2019-07-09] MEDS: multivitamins, therapeutics tablet PO SCH (08:11)
[2019-07-09] MEDS: vitamin D (cholecalciferol) 1,000 unit tablet PO SCH (08:11)
[2019-07-09] MEDS ORDERED: CHOL100046 PO (12:19)
[2019-07-09] MEDS ORDERED: PALI6TAB6 PO (12:19)
[2019-07-09] MEDS ORDERED: VENL150T3 PO (12:19)
[2019-07-09] MEDS ORDERED: PANT40TA4 PO (12:19)
[2019-07-09] MEDS ORDERED: COL100C PO (12:19)
[2019-07-09] MEDS ORDERED: OMEG1CAP PO (12:19)
[2019-07-09] MEDS ORDERED: MULT-1179 PO (12:19)
--- NOTE | 2019-07-09 15:56 | NUR ---
NURSING PROGRESS NOTE: Legal hold: 5270 Exp 07/16 @ 1525 Client on involuntary status for GD. Report received from JACKIE Glez with use of SBAR. Why are they here: Pt is diagnosed with schizophrenia. Pt is unable to formulate a plan for food, mcc or clothes. Per admission note, pt reported to walk around the block for hours at at time and stare off into the distance. Pt had $130 in his pocket, but was found eating spoiled food from dumpster. Assessment: What happened this shift: Pt woke for breakfast. Up for 1:1 assessment and morning med administration. Pt cooperative with getting in the shower today. Again, he paces the halls for exercise then takes a nap. Pt does not engage in conversation he will respond to yes or no questioning. S/I, H/I: Pt denies. A/VH: Pt denies Sleep: Rest on and off throughout the shift. ADL's: Independent; needs prompting and reminders to shower Group attendance: Not today Were Meds taken: Medication compliant. Any med S/E: Akathisia Mental Status Exam Appearance: Showered in AM; pinto his hair straight up Eye contact: poor Behavior: Pleasant, cooperative, mostly isolative to self Speech: Quiet, selectively mute, short answers to questions Mood: depressed Affect: constriction Thought process: Linear Thought Content: unknown Cognition: A/O X 2 Insight: Poor. Judgment: Poor. Interventions PRN's used: None Therapeutic interventions: Provided 1:1 assessment, therapeutic communication and active listening, encouragement to perform personal hygiene, medication administration/education/monitoring, Q15 min safety checks. Restraints/seclusion/emergency medication: N/A Justification of Continued Inpatient Treatment: Pt unable to formulate a viable plan for food, mcc and clothing. Continued therapeutic support and medication management, improve coping mechanisms. Pt is awaiting placement to [facility] approximately first part of July.
[2019-07-09 20:00] VITALS: BP 105/68
[2019-07-09] MEDS: PALIPERIDONE 3 MG TAB.ER.24 PO SCH (20:26)
--- NOTE | 2019-07-09 21:06 | NUR ---
NURSING PROGRESS NOTE: Legal hold: 5270 Exp 07/16 @ 1525 Client on involuntary status for GD. Report received from JACKIE Glez with use of SBAR. Why are they here: Pt is diagnosed with schizophrenia. Pt is unable to formulate a plan for food, nursing home or clothes. Per admission note, pt reported to walk around the block for hours at at time and stare off into the distance. Pt had $130 in his pocket, but was found eating spoiled food from dumpster. Assessment: What happened this shift: Pt isolating to his room he responds when spoken to and is medication compliant. He was up for snack and returned to bed . S/I, H/I: Pt denies. A/VH: Pt denies Sleep: Rest on and off throughout the shift. ADL's: Independent; needs prompting and reminders to shower Group attendance: Not today Were Meds taken: Medication compliant. Any med S/E: Akathisia Mental Status Exam Appearance: Showered in AM; pinto his hair straight up Eye contact: poor Behavior: Pleasant, cooperative, mostly isolative to self Speech: Quiet, selectively mute, short answers to questions Mood: depressed Affect: constriction Thought process: Linear Thought Content: unknown Cognition: A/O X 2 Insight: Poor. Judgment: Poor. Interventions PRN's used: None Therapeutic interventions: Provided 1:1 assessment, therapeutic communication and active listening, encouragement to perform personal hygiene, medication administration/education/monitoring, Q15 min safety checks. Restraints/seclusion/emergency medication: N/A Justification of Continued Inpatient Treatment: Pt unable to formulate a viable plan for food, nursing home and clothing. Continued therapeutic support and medication management, improve coping mechanisms. Pt is awaiting placement to [facility] approximately first part of July.
[2019-07-10 08:13] VITALS: BP 108/68
[2019-07-10] MEDS: vitamin D (cholecalciferol) 1,000 unit tablet PO SCH (08:21)
[2019-07-10] MEDS: omega-3 acid ethyl esters 1GM capsule PO SCH (08:21)
[2019-07-10] MEDS: docusate sod 100mg capsule PO SCH (08:21)
[2019-07-10] MEDS: venlafaxine XR 75mg capsule (Q24H) PO SCH (08:22)
[2019-07-10] MEDS: multivitamins, therapeutics tablet PO SCH (08:23)
--- NOTE | 2019-07-10 09:13 | NUR ---
DISCHARGE SUMMARY Pt is diagnosed with schizophrenia. He lives at a [facility]. Pt came into the hospital and was placed on a 5150 for GD. He was unable to formulate a plan for food, fpc or clothes. Per admission note, it was reported that pt would walk around the block for hours at at time and stare off into the distance. Pt had $130 in his pocket, but was found eating spoiled food from dumpster. Assessment: S/I, H/I: Pt denies. A/VH: Pt denies Sleep: Pt is sleeping throughout the night ADL's: Independent; requires prompts and encouragement Group attendance: He did attend a few groups within the last few days Were Meds taken: Medication compliant. Any med S/E: appears to have some Akathisia Mental Status Exam Appearance: Left in personal clothing Eye contact: Improved Behavior: Pleasant, cooperative Speech: Quiet, short answers to questions Mood: Smiling, animated Affect: constriction Thought process: Linear Thought Content: Mentioned his appointment at the [facility] today Cognition: A/O X 3 Insight: Improved Judgment: Poor. Pt ambulatory. Left w/staff member, Charlene, from [facility]. All valuables including his wallet handed to the pt and pt signed off the inventory sheet with JULIANA Mendoza. Pt will follow up with [facility] today at 1430. Since admission pt was started back on his medications as well as started on an antidepressant. Pt left here smiling and anxious to get home. He agreed to stay home, sign out on the clipboard when he leaves the property and to continue to take his medications as prescribed. Medications called into [facility] by this clinical writer. Pt declined tobacco resources and/or replacement.
== END 2019-07-10 09:13 | disposition home or self-care (01) | DRG 885 ==
LOC: ADULT MH 15:27
PROVIDERS: ADMIT Psychiatry & Neurology Psychiatry; ATTEND Psychiatry & Neurology Psychiatry
DX: F32.2 Major depressive disorder, single episode, severe without psychotic features (principal); R47.01 Aphasia; R64 Cachexia; G24.01 Drug induced subacute dyskinesia; F15.10 Other stimulant abuse, uncomplicated; F20.9 Schizophrenia, unspecified; Z59.0 Homelessness; Z91.19 Patient's noncompliance with other medical treatment and regimen; Z68.23 Body mass index [BMI] 23.0-23.9, adult
CPT/HCPCS: 36415; 80053; 80061; 80305; 80320; 81001; 82140; 83036; 84443; 85025; 87081; 99285